=== PATIENT | female | born 1960 | race Caucasian/White ===

== ENCOUNTER 2017-08-13 22:56 | Inpatient (IN) | payer MEDICAID ==
[~2017-08-13] VITALS: Ht 170.2 cm; Wt 75.1 kg
--- NOTE | ~2017-08-13 | OP ---
PATIENT NAME: ANAHI PAREDES MEDICAL RECORD: [id number] :58 LOCATION:D.M2 D.2125 ADMISSION DATE:08/13/17 SURGEON: BALA MORRISSEY MD DATE OF OPERATION: 08/15/2017 PREOPERATIVE DIAGNOSES: 1. Need for IV access. 2. Qolfi-zr-xbzalma hypoxic and hypercapnic respiratory failure. 3. Chronic obstructive pulmonary disease. 4. Pneumonia. 5. Gastroesophageal reflux disease. 6. Bipolar disorder. 7. Seizure disorder. POSTOPERATIVE DIAGNOSES: 1. Need for IV access. 2. Eoqny-aj-jerwygt hypoxic and hypercapnic respiratory failure. 3. Chronic obstructive pulmonary disease. 4. Pneumonia. 5. Gastroesophageal reflux disease 6. Bipolar disorder. 7. Seizure disorder. PROCEDURE: Right subclavian vein triple-lumen central venous line placement. SURGEON: Blaa Morrissey MD REPORT OF PROCEDURE: The patient's right chest was prepped and draped in sterile fashion. A needle was used to cannulate the right subclavian vein and a guidewire was advanced with ease. Over this wire, a dilator was placed followed by the triple lumen catheter. The catheter aspirated nonpulsatile dark blood and flushed easily in all 3 ports. This was sutured into place with 3-0 silk ties and dressed appropriately. COMPLICATIONS: None. CONDITION: Stable. ANESTHESIA: General endotracheal. BLOOD LOSS: Minimal. Procedure was done in the ICU at the bedside. TRANSINT:[id number] Voice Confirmation ID: [id number] DOCUMENT ID: [id number] BALA MORRISSEY MD at 1031 CC: [id number] DICTATION DATE: 08/15/17 1355 CAMPUS AIDE: 08/15/17 2131 DIS IN 08/27/17 [id number] [place] [address]
[2017-08-14] VITALS (40 sets, daily range): BP systolic 83–150; BP diastolic 65–110; Ht 170.2 cm; Wt 75.1 kg
[2017-08-14 07:12] LABS: BASOPHILS 0.1 % (0-2); EOSINOPHILS 0 % (0-7); HEMATOCRIT 25.7 % (36.0-48.0); HEMOGLOBIN 8.2 g/dL (12-16); IMMATURE GRANULOCYTES 0.6 % (0-5); LYMPHOCYTES 13.8 % (15-50); MCH 29.8 pg (26.0-34.0); MCHC 31.9 g/dL (31.0-37.0); MCV 93.5 fL (80.0-100.0); MEAN PLATELET VOLUME 9.4 fL (7.4-10.4); MONOCYTES 2.9 % (2-11); NEUTROPHILS 82.6 % (40-80); PLATELET COUNT 159 10x3/uL (130-400); RBC 2.75 10x6/uL (4.00-5.40); RDW 14.1 % (11.5-14.5); WBC 8.9 10x3/uL (4.8-10.8)
[2017-08-14 07:28] LABS: CALC OSMOLALITY 278 mosm/kg (275-300); CALCIUM 8.3 mg/dL (8.5-10.1); CARBON DIOXIDE 26.7 mmol/L (21.0-32.0); CHLORIDE - SERUM 103 mmol/L (98-107); CREATININE - SERUM 0.7 mg/dL (0.6-1.3); GLUCOSE 210 mg/dL (74-106); POTASSIUM - SERUM 4.2 mmol/L (3.5-5.1); SODIUM 137 mmol/L (136-145); UREA NITROGEN 11 mg/dL (7-18); eGFR NON AFRICAN AMERICAN > 90 mL/min (90-120)
[2017-08-14 11:08] LABS: % SATURATION 8 % (15-55); IRON 22 ug/dl (35-150); TOTAL IRON BIND CAPACITY 274 ug/dl (260-445); UNSAT IRON BIND CAPACITY 252 ug/dl (150-375)
[2017-08-14 13:29] LABS: CKMB 3.7 U/L (0.0-3.6); CREATINE KINASE 46 UL (21-215)
[2017-08-14 13:32] LABS: TROPONIN-I 0.547 ng/mL (0.000-0.060)
[2017-08-14 17:28] LABS: CKMB 3.8 U/L (0.0-3.6); CREATINE KINASE 48 UL (21-215)
[2017-08-14 18:03] LABS: TROPONIN-I 1.036 ng/mL (0.000-0.060)
[2017-08-14 23:13] LABS: CKMB 3.5 U/L (0.0-3.6); CREATINE KINASE 50 UL (21-215)
[2017-08-14 23:15] LABS: TROPONIN-I 0.879 ng/mL (0.000-0.060)
[2017-08-15] VITALS (26 sets, daily range): BP systolic 112–164; BP diastolic 82–121
[2017-08-15 04:00] LABS: BASOPHILS 0.1 % (0-2); EOSINOPHILS 0 % (0-7); HEMATOCRIT 28.6 % (36.0-48.0); HEMOGLOBIN 9.1 g/dL (12-16); IMMATURE GRANULOCYTES 0.7 % (0-5); LYMPHOCYTES 18.3 % (15-50); MCH 29.8 pg (26.0-34.0); MCHC 31.8 g/dL (31.0-37.0); MCV 93.8 fL (80.0-100.0); MEAN PLATELET VOLUME 9.6 fL (7.4-10.4); MONOCYTES 9.2 % (2-11); NEUTROPHILS 71.7 % (40-80); RBC 3.05 10x6/uL (4.00-5.40)
[2017-08-15 04:05] LABS: PLATELET COUNT 233 10x3/uL (130-400); WBC 12.2 10x3/uL (4.8-10.8)
[2017-08-15 04:33] LABS: CALC OSMOLALITY 277 mosm/kg (275-300); CALCIUM 8.3 mg/dL (8.5-10.1); CHLORIDE - SERUM 102 mmol/L (98-107); CREATININE - SERUM 0.6 mg/dL (0.6-1.3); GLUCOSE 171 mg/dL (74-106); PHOSPHOROUS 2.8 mg/dL (2.5-4.9); POTASSIUM - SERUM 4.2 mmol/L (3.5-5.1); PRO BNP 10392 pg/mL (0-125); SODIUM 137 mmol/L (136-145); UREA NITROGEN 12 mg/dL (7-18); eGFR NON AFRICAN AMERICAN > 90 mL/min (90-120)
[2017-08-15 08:22] LABS: FOLATE (FOLIC ACID) - SERUM 15.8 ng/mL (>3.0)
[2017-08-16] VITALS (25 sets, daily range): BP systolic 82–169; BP diastolic 59–109
[2017-08-16 04:34] LABS: BASOPHILS 0.1 % (0-2); EOSINOPHILS 0 % (0-7); HEMATOCRIT 28.7 % (36.0-48.0); HEMOGLOBIN 9.1 g/dL (12-16); IMMATURE GRANULOCYTES 0.7 % (0-5); LYMPHOCYTES 20.6 % (15-50); MCH 29.7 pg (26.0-34.0); MCHC 31.7 g/dL (31.0-37.0); MCV 93.8 fL (80.0-100.0); MEAN PLATELET VOLUME 9.2 fL (7.4-10.4); MONOCYTES 12.5 % (2-11); NEUTROPHILS 66.1 % (40-80); PLATELET COUNT 229 10x3/uL (130-400); RBC 3.06 10x6/uL (4.00-5.40); RDW 14.4 % (11.5-14.5)
[2017-08-16 04:46] LABS: CALCIUM 8.6 mg/dL (8.5-10.1); CHLORIDE - SERUM 102 mmol/L (98-107); GLUCOSE 136 mg/dL (74-106); MAGNESIUM - SERUM 2.2 mg/dL (1.8-2.4); PHOSPHOROUS 3.2 mg/dL (2.5-4.9); POTASSIUM - SERUM 3.6 mmol/L (3.5-5.1); SODIUM 140 mmol/L (136-145)
[2017-08-16 04:57] LABS: CALC OSMOLALITY 282 mosm/kg (275-300); CARBON DIOXIDE 33.8 mmol/L (21.0-32.0); CREATININE - SERUM 0.8 mg/dL (0.6-1.3); UREA NITROGEN 17 mg/dL (7-18); eGFR NON AFRICAN AMERICAN 78 mL/min (90-120)
[2017-08-16 08:17] LABS: IMMUNOGLOBULIN A 143 mg/dL (87-352); IMMUNOGLOBULIN G 532 mg/dL (700-1600)
[2017-08-16 14:13] LABS: ACID FAST SMEAR Negative (()); AFB SPECIMEN PROCESSING Concentration (())
[2017-08-17] VITALS (27 sets, daily range): BP systolic 93–130; BP diastolic 51–89
[2017-08-17 04:57] LABS: BASOPHILS 0 % (0-2); EOSINOPHILS 0 % (0-7); HEMATOCRIT 26.6 % (36.0-48.0); HEMOGLOBIN 8.3 g/dL (12-16); IMMATURE GRANULOCYTES 0.4 % (0-5); LYMPHOCYTES 13.2 % (15-50); MCH 29.5 pg (26.0-34.0); MCHC 31.2 g/dL (31.0-37.0); MCV 94.7 fL (80.0-100.0); MEAN PLATELET VOLUME 9.3 fL (7.4-10.4); MONOCYTES 7.6 % (2-11); NEUTROPHILS 78.8 % (40-80); PLATELET COUNT 206 10x3/uL (130-400); RBC 2.81 10x6/uL (4.00-5.40); RDW 14.5 % (11.5-14.5); WBC 9.3 10x3/uL (4.8-10.8)
[2017-08-17 05:38] LABS: ANION GAP 9.3 mmol/L (8-16); CALCIUM 8.8 mg/dL (8.5-10.1); CREATININE - SERUM 0.9 mg/dL (0.6-1.3); MAGNESIUM - SERUM 2.5 mg/dL (1.8-2.4); PHOSPHOROUS 2.7 mg/dL (2.5-4.9); POTASSIUM - SERUM 3.3 mmol/L (3.5-5.1)
[2017-08-17 05:39] LABS: TROPONIN-I 0.201 ng/mL (0.000-0.060)
[2017-08-18] VITALS (33 sets, daily range): BP systolic 83–130; BP diastolic 51–78
[2017-08-18 05:15] LABS: BASOPHILS 0 % (0-2); EOSINOPHILS 0.1 % (0-7); HEMOGLOBIN 9.4 g/dL (12-16); IMMATURE GRANULOCYTES 0.5 % (0-5); LYMPHOCYTES 20.2 % (15-50); MCH 29.4 pg (26.0-34.0); MCHC 31.3 g/dL (31.0-37.0); MCV 93.8 fL (80.0-100.0); MEAN PLATELET VOLUME 9.6 fL (7.4-10.4); MONOCYTES 9.2 % (2-11); PLATELET COUNT 222 10x3/uL (130-400); RDW 14.9 % (11.5-14.5); WBC 9.3 10x3/uL (4.8-10.8)
[2017-08-18 05:27] LABS: CALCIUM 8.4 mg/dL (8.5-10.1); CARBON DIOXIDE 32.3 mmol/L (21.0-32.0); CHLORIDE - SERUM 101 mmol/L (98-107); POTASSIUM - SERUM 3.5 mmol/L (3.5-5.1); SODIUM 139 mmol/L (136-145); UREA NITROGEN 22 mg/dL (7-18)
[2017-08-18 05:30] LABS: CALC OSMOLALITY 282 mosm/kg (275-300); CREATININE - SERUM 0.6 mg/dL (0.6-1.3); GLUCOSE 135 mg/dL (74-106); eGFR NON AFRICAN AMERICAN > 90 mL/min (90-120)
[2017-08-18] MEDS ORDERED: TRILEPTAL300 MG PO (13:24)
[2017-08-18] MEDS ORDERED: TRILEPTAL600 MG PO (13:33)
[2017-08-18] MEDS ORDERED: PROZAC20 MG PO (13:34)
[2017-08-18] MEDS ORDERED: PROAIR HFA8.5 GM INH (13:34)
[2017-08-18] MEDS ORDERED: SEROQUEL400 MG PO (13:35)
[2017-08-18] MEDS ORDERED: XANAX0.25 MG PO (13:36)
[2017-08-18] MEDS ORDERED: ATROVENT 0.02%2.5 ML UPD (13:37)
[2017-08-18] MEDS ORDERED: SPORANOX100 MG PO (13:38)
[2017-08-18] MEDS ORDERED: METOPROLOL TART25 MG PO (13:38)
[2017-08-18] MEDS ORDERED: PREDNISONE20 MG PO (13:41)
[2017-08-18] MEDS ORDERED: HYDROCODONE-APA1 TAB PO (13:41)
[2017-08-19] VITALS (24 sets, daily range): BP systolic 86–113; BP diastolic 54–74
[2017-08-19 04:30] LABS: CALC OSMOLALITY 284 mosm/kg (275-300); CALCIUM 8.5 mg/dL (8.5-10.1); CARBON DIOXIDE 32.4 mmol/L (21.0-32.0); CHLORIDE - SERUM 100 mmol/L (98-107); CREATININE - SERUM 0.4 mg/dL (0.6-1.3); GLUCOSE 130 mg/dL (74-106); POTASSIUM - SERUM 3.6 mmol/L (3.5-5.1); SODIUM 140 mmol/L (136-145); UREA NITROGEN 24 mg/dL (7-18); eGFR NON AFRICAN AMERICAN > 90 mL/min (90-120)
[2017-08-19 04:31] LABS: BASOPHILS 0.1 % (0-2); EOSINOPHILS 0.1 % (0-7); HEMOGLOBIN 9.1 g/dL (12-16); IMMATURE GRANULOCYTES 0.5 % (0-5); LYMPHOCYTES 13.5 % (15-50); MCH 29.4 pg (26.0-34.0); MCHC 31.4 g/dL (31.0-37.0); MCV 93.5 fL (80.0-100.0); MEAN PLATELET VOLUME 10.1 fL (7.4-10.4); MONOCYTES 5.9 % (2-11); NEUTROPHILS 79.9 % (40-80); PLATELET COUNT 226 10x3/uL (130-400); RDW 14.5 % (11.5-14.5); WBC 9.3 10x3/uL (4.8-10.8)
[2017-08-19 18:10] LABS: FUNGAL - ASP FLAVUS Negative (Neg:<1:1); FUNGAL - ASP NIGER Negative (Neg:<1:1); FUNGAL - ASPER FUMIGATUS Negative (Neg:<1:1)
[2017-08-20] VITALS (24 sets, daily range): BP systolic 92–123; BP diastolic 50–90
[2017-08-20 05:37] LABS: BASOPHILS 0 % (0-2); EOSINOPHILS 0.3 % (0-7); HEMATOCRIT 25.4 % (36.0-48.0); HEMOGLOBIN 8.1 g/dL (12-16); IMMATURE GRANULOCYTES 0.4 % (0-5); LYMPHOCYTES 18.8 % (15-50); MCH 29.5 pg (26.0-34.0); MCHC 31.9 g/dL (31.0-37.0); MCV 92.4 fL (80.0-100.0); MEAN PLATELET VOLUME 9.8 fL (7.4-10.4); MONOCYTES 6.2 % (2-11); NEUTROPHILS 74.3 % (40-80); PLATELET COUNT 187 10x3/uL (130-400); RBC 2.75 10x6/uL (4.00-5.40); RDW 14.3 % (11.5-14.5); WBC 7.8 10x3/uL (4.8-10.8)
[2017-08-20 05:48] LABS: CALC OSMOLALITY 282 mosm/kg (275-300); CALCIUM 8.6 mg/dL (8.5-10.1); CARBON DIOXIDE 33.8 mmol/L (21.0-32.0); CHLORIDE - SERUM 101 mmol/L (98-107); CREATININE - SERUM 0.3 mg/dL (0.6-1.3); GLUCOSE 103 mg/dL (74-106); MAGNESIUM - SERUM 2.1 mg/dL (1.8-2.4); POTASSIUM - SERUM 3.3 mmol/L (3.5-5.1); SODIUM 140 mmol/L (136-145); UREA NITROGEN 24 mg/dL (7-18); eGFR NON AFRICAN AMERICAN > 90 mL/min (90-120)
[2017-08-20 11:20] LABS: FUNGUS STAIN Final report (())
[2017-08-21] VITALS (19 sets, daily range): BP systolic 88–128; BP diastolic 52–93
[2017-08-21 04:05] LABS: BASOPHILS 0.1 % (0-2); EOSINOPHILS 0.6 % (0-7); HEMATOCRIT 28.4 % (36.0-48.0); HEMOGLOBIN 8.9 g/dL (12-16); IMMATURE GRANULOCYTES 0.6 % (0-5); LYMPHOCYTES 20.5 % (15-50); MCH 29.1 pg (26.0-34.0); MCHC 31.3 g/dL (31.0-37.0); MCV 92.8 fL (80.0-100.0); MEAN PLATELET VOLUME 10.2 fL (7.4-10.4); NEUTROPHILS 69.2 % (40-80); RBC 3.06 10x6/uL (4.00-5.40); RDW 14.3 % (11.5-14.5)
[2017-08-21 04:10] LABS: PLATELET COUNT 227 10x3/uL (130-400)
[2017-08-21 04:25] LABS: CALC OSMOLALITY 283 mosm/kg (275-300); CARBON DIOXIDE 32.6 mmol/L (21.0-32.0); CHLORIDE - SERUM 101 mmol/L (98-107); GLUCOSE 118 mg/dL (74-106); SODIUM 141 mmol/L (136-145); UREA NITROGEN 18 mg/dL (7-18)
[2017-08-21 04:28] LABS: CREATININE - SERUM 0.4 mg/dL (0.6-1.3); POTASSIUM - SERUM 3.3 mmol/L (3.5-5.1); eGFR NON AFRICAN AMERICAN > 90 mL/min (90-120)
[2017-08-21 15:27] LABS: IMMUNOGLOBULIN E 4 IU/mL (0-100)
[2017-08-22] VITALS (15 sets, daily range): BP systolic 87–124; BP diastolic 59–103
[2017-08-22 05:04] LABS: BASOPHILS 0.1 % (0-2); EOSINOPHILS 0.5 % (0-7); HEMATOCRIT 29.9 % (36.0-48.0); HEMOGLOBIN 9.4 g/dL (12-16); IMMATURE GRANULOCYTES 0.5 % (0-5); LYMPHOCYTES 18.3 % (15-50); MCHC 31.4 g/dL (31.0-37.0); MCV 92.3 fL (80.0-100.0); MEAN PLATELET VOLUME 10.3 fL (7.4-10.4); MONOCYTES 11.2 % (2-11); NEUTROPHILS 69.4 % (40-80); RBC 3.24 10x6/uL (4.00-5.40); RDW 14.2 % (11.5-14.5); WBC 8.3 10x3/uL (4.8-10.8)
[2017-08-22 05:06] LABS: PLATELET COUNT 279 10x3/uL (130-400)
[2017-08-22 05:17] LABS: CALC OSMOLALITY 283 mosm/kg (275-300); CALCIUM 9.2 mg/dL (8.5-10.1); CARBON DIOXIDE 32.8 mmol/L (21.0-32.0); CHLORIDE - SERUM 101 mmol/L (98-107); CREATININE - SERUM 0.5 mg/dL (0.6-1.3); GLUCOSE 97 mg/dL (74-106); MAGNESIUM - SERUM 1.9 mg/dL (1.8-2.4); SODIUM 141 mmol/L (136-145); UREA NITROGEN 22 mg/dL (7-18); eGFR NON AFRICAN AMERICAN > 90 mL/min (90-120)
[2017-08-22 05:25] LABS: POTASSIUM - SERUM 3.1 mmol/L (3.5-5.1)
[2017-08-22 15:25] LABS: FUNGUS CULTURE RESULT 1 Candida tropicalis (())
[2017-08-23 00:41] VITALS: BP 120/74
[2017-08-23 05:33] LABS: BASOPHILS 0.1 % (0-2); EOSINOPHILS 0.3 % (0-7); HEMATOCRIT 30.8 % (36.0-48.0); HEMOGLOBIN 9.8 g/dL (12-16); IMMATURE GRANULOCYTES 0.6 % (0-5); LYMPHOCYTES 24.8 % (15-50); MCH 29.2 pg (26.0-34.0); MCHC 31.8 g/dL (31.0-37.0); MCV 91.7 fL (80.0-100.0); MONOCYTES 13.1 % (2-11); NEUTROPHILS 61.1 % (40-80); PLATELET COUNT 316 10x3/uL (130-400); RBC 3.36 10x6/uL (4.00-5.40); RDW 14.1 % (11.5-14.5)
[2017-08-23 05:57] VITALS: BP 115/74
[2017-08-23 06:11] LABS: CALC OSMOLALITY 285 mosm/kg (275-300); CALCIUM 9.6 mg/dL (8.5-10.1); CARBON DIOXIDE 31.1 mmol/L (21.0-32.0); CHLORIDE - SERUM 101 mmol/L (98-107); CREATININE - SERUM 0.5 mg/dL (0.6-1.3); GLUCOSE 102 mg/dL (74-106); POTASSIUM - SERUM 3.3 mmol/L (3.5-5.1); SODIUM 141 mmol/L (136-145); UREA NITROGEN 26 mg/dL (7-18); eGFR NON AFRICAN AMERICAN > 90 mL/min (90-120)
[2017-08-23 08:11] VITALS: BP 107/73
[2017-08-23 11:22] VITALS: BP 128/82
[2017-08-23 15:29] VITALS: BP 108/69
[2017-08-23 21:35] VITALS: BP 139/79
[2017-08-24 00:46] VITALS: BP 111/72
[2017-08-24 05:39] VITALS: BP 106/68
[2017-08-24 06:15] LABS: BASOPHILS 0.1 % (0-2); EOSINOPHILS 0.7 % (0-7); HEMATOCRIT 29.5 % (36.0-48.0); HEMOGLOBIN 9.2 g/dL (12-16); IMMATURE GRANULOCYTES 0.6 % (0-5); LYMPHOCYTES 28.5 % (15-50); MCH 28.9 pg (26.0-34.0); MCHC 31.2 g/dL (31.0-37.0); MCV 92.8 fL (80.0-100.0); MEAN PLATELET VOLUME 10.3 fL (7.4-10.4); MONOCYTES 14.3 % (2-11); NEUTROPHILS 55.8 % (40-80); PLATELET COUNT 296 10x3/uL (130-400); RBC 3.18 10x6/uL (4.00-5.40); RDW 14.4 % (11.5-14.5)
[2017-08-24 06:42] LABS: CALC OSMOLALITY 290 mosm/kg (275-300); CALCIUM 9.6 mg/dL (8.5-10.1); CARBON DIOXIDE 31.7 mmol/L (21.0-32.0); CHLORIDE - SERUM 103 mmol/L (98-107); CREATININE - SERUM 0.5 mg/dL (0.6-1.3); GLUCOSE 97 mg/dL (74-106); MAGNESIUM - SERUM 2.1 mg/dL (1.8-2.4); SODIUM 143 mmol/L (136-145); UREA NITROGEN 29 mg/dL (7-18); eGFR NON AFRICAN AMERICAN > 90 mL/min (90-120)
[2017-08-24 06:44] LABS: POTASSIUM - SERUM 3.2 mmol/L (3.5-5.1)
[2017-08-24 08:51] VITALS: BP 116/77
[2017-08-24 12:13] VITALS: BP 129/80
[2017-08-24 16:32] VITALS: BP 127/75
[2017-08-24 18:06] LABS: AEROBE ID Final report (())
[2017-08-24 20:00] VITALS: BP 122/68
[2017-08-25 04:00] VITALS: BP 113/70
[2017-08-25 05:48] LABS: BASOPHILS 0 % (0-2); EOSINOPHILS 0.6 % (0-7); HEMATOCRIT 28.5 % (36.0-48.0); HEMOGLOBIN 8.9 g/dL (12-16); IMMATURE GRANULOCYTES 0.5 % (0-5); LYMPHOCYTES 29.6 % (15-50); MCH 28.9 pg (26.0-34.0); MCHC 31.2 g/dL (31.0-37.0); MCV 92.5 fL (80.0-100.0); NEUTROPHILS 54.3 % (40-80); PLATELET COUNT 278 10x3/uL (130-400); RBC 3.08 10x6/uL (4.00-5.40); RDW 14.5 % (11.5-14.5); WBC 6.4 10x3/uL (4.8-10.8)
[2017-08-25 06:14] LABS: ALKALINE PHOSPHATASE 54 U/L (46-116); ALT (SGPT) 36 U/L (10-68); BILIRUBIN - TOTAL 0.26 mg/dL (0.2-1.3); CALC OSMOLALITY 284 mosm/kg (275-300); CALCIUM 9.5 mg/dL (8.5-10.1); CHLORIDE - SERUM 103 mmol/L (98-107); CREATININE - SERUM 0.5 mg/dL (0.6-1.3); GLUCOSE 89 mg/dL (74-106); POTASSIUM - SERUM 3.3 mmol/L (3.5-5.1); PROTEIN - SERUM 6.2 g/dL (6.4-8.2); SODIUM 142 mmol/L (136-145); UREA NITROGEN 22 mg/dL (7-18); eGFR NON AFRICAN AMERICAN > 90 mL/min (90-120)
[2017-08-25 07:57] VITALS: BP 188/149
[2017-08-25 09:32] VITALS: BP 160/82
[2017-08-25 11:16] VITALS: BP 130/91
[2017-08-25 15:16] VITALS: BP 104/71
[2017-08-25 16:13] LABS: SPE - ALBUMIN 2.8 g/dL (2.9-4.4); SPE - ALPHA-1 GLOBULIN 0.3 g/dL (0.0-0.4); SPE - GAMMA GLOBULIN 0.5 g/dL (0.4-1.8); SPE - M-SPIKE Not Observed g/dL (Not Observed); SPE - TOTAL PROTEIN 5.5 g/dL (6.0-8.5)
[2017-08-25 20:18] VITALS: BP 107/42
[2017-08-26 00:39] VITALS: BP 119/73
[2017-08-26 05:34] LABS: BASOPHILS 0.1 % (0-2); EOSINOPHILS 0.8 % (0-7); HEMATOCRIT 31.2 % (36.0-48.0); IMMATURE GRANULOCYTES 0.6 % (0-5); LYMPHOCYTES 32.8 % (15-50); MCH 29.6 pg (26.0-34.0); MCHC 32.1 g/dL (31.0-37.0); MCV 92.3 fL (80.0-100.0); MEAN PLATELET VOLUME 9.9 fL (7.4-10.4); MONOCYTES 13.7 % (2-11); PLATELET COUNT 295 10x3/uL (130-400); RBC 3.38 10x6/uL (4.00-5.40); RDW 14.5 % (11.5-14.5); WBC 7.1 10x3/uL (4.8-10.8)
[2017-08-26 05:57] LABS: ALBUMIN 3.4 g/dL (3.4-5.0); ALKALINE PHOSPHATASE 71 U/L (46-116); ALT (SGPT) 36 U/L (10-68); CALC OSMOLALITY 287 mosm/kg (275-300); CALCIUM 9.5 mg/dL (8.5-10.1); CHLORIDE - SERUM 103 mmol/L (98-107); GLUCOSE 91 mg/dL (74-106); POTASSIUM - SERUM 3.2 mmol/L (3.5-5.1); PROTEIN - SERUM 6.8 g/dL (6.4-8.2); SODIUM 143 mmol/L (136-145); UREA NITROGEN 22 mg/dL (7-18); eGFR NON AFRICAN AMERICAN 78 mL/min (90-120)
[2017-08-26 06:00] LABS: CREATININE - SERUM 0.8 mg/dL (0.6-1.3)
[2017-08-26 06:11] VITALS: BP 118/76
[2017-08-26 08:17] VITALS: BP 94/56
[2017-08-26 11:43] VITALS: BP 120/67
[2017-08-26 15:36] VITALS: BP 110/60
[2017-08-26 20:47] VITALS: BP 119/69
[2017-08-27 05:08] VITALS: BP 102/56
[2017-08-27 05:44] LABS: BASOPHILS 0.3 % (0-2); EOSINOPHILS 0.8 % (0-7); HEMATOCRIT 31.2 % (36.0-48.0); HEMOGLOBIN 9.9 g/dL (12-16); IMMATURE GRANULOCYTES 0.9 % (0-5); LYMPHOCYTES 36.9 % (15-50); MCH 29.2 pg (26.0-34.0); MCHC 31.7 g/dL (31.0-37.0); MEAN PLATELET VOLUME 9.8 fL (7.4-10.4); MONOCYTES 12.6 % (2-11); NEUTROPHILS 48.5 % (40-80); PLATELET COUNT 293 10x3/uL (130-400); RBC 3.39 10x6/uL (4.00-5.40); RDW 14.5 % (11.5-14.5); WBC 7.5 10x3/uL (4.8-10.8)
[2017-08-27 06:08] LABS: ALBUMIN 3.2 g/dL (3.4-5.0); ALKALINE PHOSPHATASE 64 U/L (46-116); ALT (SGPT) 36 U/L (10-68); CALC OSMOLALITY 284 mosm/kg (275-300); CALCIUM 9.7 mg/dL (8.5-10.1); CARBON DIOXIDE 32.4 mmol/L (21.0-32.0); CHLORIDE - SERUM 103 mmol/L (98-107); CREATININE - SERUM 0.6 mg/dL (0.6-1.3); GLUCOSE 90 mg/dL (74-106); POTASSIUM - SERUM 3.4 mmol/L (3.5-5.1); PROTEIN - SERUM 6.5 g/dL (6.4-8.2); SODIUM 141 mmol/L (136-145); UREA NITROGEN 25 mg/dL (7-18); eGFR NON AFRICAN AMERICAN > 90 mL/min (90-120)
[2017-08-27 08:21] VITALS: BP 109/68
[2017-08-27] MEDS ORDERED: FLAGYL500 MG PO (10:40)
[2017-08-27] MEDS ORDERED: BETAPACE 80 MG80 MG PO (10:41)
[2017-08-27] MEDS ORDERED: CAPOTEN12.5 MG NG (10:41)
[2017-08-27] MEDS ORDERED: SINGULAIR10 MG PO (10:42)
[2017-08-27] MEDS ORDERED: PROTONIX I40 MG/VIAL IV (10:43)
[2017-08-27] MEDS ORDERED: FLORAJEN3 CAPS460 MG PO (10:43)
[2017-08-27] MEDS ORDERED: PULMICORT0.5 MG/21 UPD (10:43)
[2017-08-27 11:37] VITALS: BP 110/60
[2017-08-27] MEDS ORDERED: PROTONIX40 MG PO (14:19)
[2017-08-27] MEDS ORDERED: CAPOTEN12.5 MG PO (14:19)
[2017-09-12 14:23] LABS: FUNGUS MYCOLOGY CULTURE Final report (())
== END 2017-08-27 15:24 | disposition home health service (06) | DRG 207 ==
LOC: D.ICU 22:56 → D.M2 23:50 → D.SDCHOLD 08-26 07:25 → D.M2 08-27 15:24
PROVIDERS: Emergency Medicine; Internal Medicine Hematology & Oncology; Internal Medicine Nephrology; Internal Medicine Pulmonary Disease
PROC: 5A1955Z Respiratory Ventilation, Greater than 96 Consecutive Hours (ICD-10-PCS; principal; 2017-08-13)
PROC: 0BH17EZ Insertion of Endotracheal Airway into Trachea, Via Natural or Artificial Opening (ICD-10-PCS; 2017-08-13)
PROC: 05H533Z Insertion of Infusion Device into Right Subclavian Vein, Percutaneous Approach (ICD-10-PCS; 2017-08-15)
PROC: 0BC98ZZ Extirpation of Matter from Lingula Bronchus, Via Natural or Artificial Opening Endoscopic (ICD-10-PCS; 2017-08-15)
PROC: 0BC48ZZ Extirpation of Matter from Right Upper Lobe Bronchus, Via Natural or Artificial Opening Endoscopic (ICD-10-PCS; 2017-08-15)
PROC: 0BC88ZZ Extirpation of Matter from Left Upper Lobe Bronchus, Via Natural or Artificial Opening Endoscopic (ICD-10-PCS; 2017-08-15)
PROC: 0BC58ZZ Extirpation of Matter from Right Middle Lobe Bronchus, Via Natural or Artificial Opening Endoscopic (ICD-10-PCS; 2017-08-15)
PROC: 0BC68ZZ Extirpation of Matter from Right Lower Lobe Bronchus, Via Natural or Artificial Opening Endoscopic (ICD-10-PCS; 2017-08-15)
PROC: 0BCB8ZZ Extirpation of Matter from Left Lower Lobe Bronchus, Via Natural or Artificial Opening Endoscopic (ICD-10-PCS; 2017-08-15)
DX: J96.21 Acute and chronic respiratory failure with hypoxia (principal); J18.9 Pneumonia, unspecified organism; I50.23 Acute on chronic systolic (congestive) heart failure; J44.1 Chronic obstructive pulmonary disease with (acute) exacerbation; K92.2 Gastrointestinal hemorrhage, unspecified; I42.9 Cardiomyopathy, unspecified; E87.3 Alkalosis; A04.72 Enterocolitis due to Clostridium difficile, not specified as recurrent; J96.22 Acute and chronic respiratory failure with hypercapnia; Y95 Nosocomial condition; I10 Essential (primary) hypertension; D50.9 Iron deficiency anemia, unspecified; F31.9 Bipolar disorder, unspecified; G40.909 Epilepsy, unspecified, not intractable, without status epilepticus; B18.2 Chronic viral hepatitis C; Z99.81 Dependence on supplemental oxygen; D72.829 Elevated white blood cell count, unspecified; I11.0 Hypertensive heart disease with heart failure; K21.9 Gastro-esophageal reflux disease without esophagitis; I08.1 Rheumatic disorders of both mitral and tricuspid valves; Z87.891 Personal history of nicotine dependence

== ENCOUNTER 2017-09-01 22:48 | Observation (INO) | payer MEDICAID ==
[~2017-09-01] VITALS: Ht 170.2 cm; Wt 82.2 kg
[~2017-09-01 22:48] MED LIST: ATROVENT 0.02%2.5 ML UPD; BETAPACE 80 MG80 MG PO; CAPOTEN12.5 MG NG; CAPOTEN12.5 MG PO; FLAGYL500 MG PO; FLORAJEN3 CAPS460 MG PO; HYDROCODONE-APA1 TAB PO; METOPROLOL TART25 MG PO; PREDNISONE20 MG PO; PROAIR HFA8.5 GM INH; PROTONIX I40 MG/VIAL IV; PROTONIX40 MG PO; PROZAC20 MG PO; PULMICORT0.5 MG/21 UPD; SEROQUEL400 MG PO; SINGULAIR10 MG PO; SPORANOX100 MG PO; TRILEPTAL300 MG PO; TRILEPTAL600 MG PO; XANAX0.25 MG PO
[2017-09-02 02:38] VITALS: Ht 170.2 cm; Wt 82.2 kg
[2017-09-02 06:20] VITALS: BP 144/76
[2017-09-02 06:54] LABS: MAGNESIUM - SERUM 2.2 mg/dL (1.8-2.4); PHOSPHOROUS 2.7 mg/dL (2.5-4.9)
[2017-09-02 07:51] VITALS: BP 142/78
[2017-09-02 10:25] VITALS: BP 132/71
[2017-09-02 15:31] VITALS: BP 140/77
[2017-09-02 20:31] VITALS: BP 119/79
[2017-09-03 04:00] VITALS: BP 97/65
[2017-09-03 05:38] LABS: BASOPHILS 0 % (0-2); EOSINOPHILS 0.3 % (0-7); HEMATOCRIT 29.3 % (36.0-48.0); HEMOGLOBIN 9.2 g/dL (12-16); IMMATURE GRANULOCYTES 0.3 % (0-5); LYMPHOCYTES 30.9 % (15-50); MCH 29.8 pg (26.0-34.0); MCHC 31.4 g/dL (31.0-37.0); MCV 94.8 fL (80.0-100.0); MEAN PLATELET VOLUME 11.1 fL (7.4-10.4); NEUTROPHILS 58.5 % (40-80); RBC 3.09 10x6/uL (4.00-5.40); RDW 15.7 % (11.5-14.5); WBC 7.5 10x3/uL (4.8-10.8)
[2017-09-03 05:55] LABS: PLATELET COUNT 192 10x3/uL (130-400)
[2017-09-03 05:58] LABS: ALBUMIN 2.9 g/dL (3.4-5.0); ALKALINE PHOSPHATASE 50 U/L (46-116); ALT (SGPT) 38 U/L (10-68); CALC OSMOLALITY 285 mosm/kg (275-300); CALCIUM 9.2 mg/dL (8.5-10.1); CARBON DIOXIDE 31.1 mmol/L (21.0-32.0); CHLORIDE - SERUM 105 mmol/L (98-107); CREATININE - SERUM 0.8 mg/dL (0.6-1.3); GLUCOSE 102 mg/dL (74-106); POTASSIUM - SERUM 3.3 mmol/L (3.5-5.1); PROTEIN - SERUM 5.7 g/dL (6.4-8.2); SODIUM 142 mmol/L (136-145); UREA NITROGEN 20 mg/dL (7-18); eGFR NON AFRICAN AMERICAN 78 mL/min (90-120)
[2017-09-03 07:44] VITALS: BP 131/68
[2017-09-03 11:23] VITALS: BP 138/71
== END 2017-09-03 13:28 | disposition home or self-care (01) ==
LOC: D.ER 22:48 → D.EDHOLD 09-02 00:26 → D.M2 09-02 00:26 → OBSVTIME 09-02 00:26 → D.M2 09-02 00:31
PROVIDERS: Family Medicine
DX: R00.0 Tachycardia, unspecified (principal); F41.9 Anxiety disorder, unspecified; J44.9 Chronic obstructive pulmonary disease, unspecified; I10 Essential (primary) hypertension; K75.9 Inflammatory liver disease, unspecified; K21.9 Gastro-esophageal reflux disease without esophagitis

== ENCOUNTER → 2018-07-10 09:22 | Outpatient (CLI) | payer MEDICAID ==
[2017-09-02 02:38] VITALS: BMI 24.3
== END | disposition home or self-care (01) ==
LOC: D.RT 09:22
PROVIDERS: ATTEND Internal Medicine Pulmonary Disease
DX: J44.9 Chronic obstructive pulmonary disease, unspecified (principal)

== ENCOUNTER 2018-08-23 21:09 | Inpatient (IN) | payer MEDICAID ==
[~2018-08-23] VITALS: Ht 170.2 cm; Wt 140.9 kg
[2018-08-23 21:32] VITALS: BP 139/96
[2018-08-23 22:08] LABS: BASOPHILS 0 % (0-2); EOSINOPHILS 0.6 % (0-7); HEMOGLOBIN 10.9 g/dL (12-16); IMMATURE GRANULOCYTES 0.2 % (0-5); LYMPHOCYTES 26.2 % (15-50); MCH 29.5 pg (26.0-34.0); MCHC 31.1 g/dL (31.0-37.0); MCV 94.6 fL (80.0-100.0); MEAN PLATELET VOLUME 10.7 fL (7.4-10.4); MONOCYTES 9.8 % (2-11); NEUTROPHILS 63.2 % (40-80); PLATELET COUNT 203 10x3/uL (130-400); RDW 13.7 % (11.5-14.5); WBC 8.3 10x3/uL (4.8-10.8)
[2018-08-23 22:19] LABS: ALBUMIN 3.4 g/dL (3.4-5.0); ALKALINE PHOSPHATASE 62 U/L (46-116); ALT (SGPT) 50 U/L (10-68); BILIRUBIN - TOTAL 0.23 mg/dL (0.2-1.3); CALC OSMOLALITY 281 mosm/kg (275-300); CALCIUM 8.9 mg/dL (8.5-10.1); CARBON DIOXIDE 38.8 mmol/L (21.0-32.0); CHLORIDE - SERUM 101 mmol/L (98-107); CREATININE - SERUM 0.8 mg/dL (0.6-1.3); GLUCOSE 100 mg/dL (74-106); POTASSIUM - SERUM 3.6 mmol/L (3.5-5.1); PROTEIN - SERUM 6.8 g/dL (6.4-8.2); SODIUM 141 mmol/L (136-145); UREA NITROGEN 15 mg/dL (7-18); eGFR NON AFRICAN AMERICAN 78 mL/min (90-120)
[2018-08-23 22:26] LABS: LIPASE 292 U/L (73-393); MAGNESIUM - SERUM 2.2 mg/dL (1.8-2.4); PRO BNP 39 pg/mL (0-125)
[2018-08-23 22:27] LABS: TROPONIN-I < 0.017 ng/mL (0.000-0.060)
[2018-08-23 22:45] VITALS: BP 129/76
--- NOTE | 2018-08-23 23:47 | NUR ---
PT ARRIVED TO FLOOR VIA STRECHER. PT ALERT AND ORIENTED X4. PT AT BEDSIDE. PT ON 2L NC. PT HAS CPAP FROM HOME AT BEDSIDE. PT DENIES ANY PAIN OR NEEDS AT THIS TIME. BED LOW CALL LIGHT WITHIN REACH. WILL CONTINUE TO MONITOR.
[2018-08-24] VITALS (8 sets, daily range): BP systolic 107–146; BP diastolic 61–98; BMI 33.3; BMI 33.2
--- NOTE | 2018-08-24 00:45 | NUR ---
CLINICAL RESEARCH ANALYST ASSESSMENT COMPLETED. PT STATES HAS CP 8/10 WITH COUGH AND DEEP BREATHING. IV TO L HAND WITH IVAB INFUSING. O2 2LNC. LUNGS DIMINISHED IN BASES BILAT. BRUISES NOTED TO BILAT ARMS. SPOUSE AT BEDSIDE. SR UP X1, CALL LIGHT WITHIN REACH.
--- NOTE | 2018-08-24 01:59 | NUR ---
PT RESTING IN BED WITH CPAP ON. RR EVEN AND UNLABORED. AT BEDSIDE. BED LOW CALL LIGHT WITHIN REACH. WILL CONTINUE TO MONITOR.
--- NOTE | 2018-08-24 08:30 | NUR ---
RECIEVED REPORT, PATIENT IS ALERT AND AWAKE AND REPORTS BURNING PAIN IN HER LUNGS. ADMINISTER PAIN MEDICATION ORDERED. IV IN LEFT HAND IS FLUSHING WELL. PATIENT DENIES ANY FURTHER NEEDS AT THIS TIME EXCEPT THAT HER MEDICATIONS BE STARTED UP AGAIN. MEDICATIONS ARE ON THE MEDICATION RECONSILIATION LIST.
[2018-08-24] MEDS ORDERED: ZITHROMAX250 MG PO (12:53)
[2018-08-24] MEDS ORDERED: HYDROCODON-ACE1 EAC7 PO (12:58)
[2018-08-24] MEDS ORDERED: CARAFATE1 G PO (13:00)
[2018-08-24] MEDS ORDERED: ALDACTONE50 MG PO (13:04)
[2018-08-24] MEDS ORDERED: FUROSEMIDE20 MG PO (13:05)
[2018-08-24] MEDS ORDERED: KLONOPIN0.5 MG PO (13:06)
[2018-08-24] MEDS ORDERED: PREDNISONE20 MG PO (13:08)
[2018-08-24] MEDS ORDERED: BRETHINE2.5 MG PO (13:09)
[2018-08-24] MEDS ORDERED: OMEPRAZOLE20 M1 PO (13:11)
[2018-08-24] MEDS ORDERED: K-TAB10 MEQ PO (13:13)
[2018-08-24] MEDS ORDERED: DALIRESP500 MCG PO (13:15)
[2018-08-24] MEDS ORDERED: ALBUTEROL SULF8.5 GM INH (13:17)
[2018-08-24] MEDS ORDERED: ASPIRIN81 MG PO (13:18)
[2018-08-24 14:48] LABS: CKMB 0.4 U/L (0.0-3.6); CREATINE KINASE 18 UL (21-215); TROPONIN-I < 0.017 ng/mL (0.000-0.060)
[2018-08-24 14:56] LABS: % SATURATION 8 % (15-55); IRON 30 ug/dl (35-150); TOTAL IRON BIND CAPACITY 350 ug/dl (260-445); UNSAT IRON BIND CAPACITY 320 ug/dl (150-375)
--- NOTE | 2018-08-24 16:39 | NUR ---
I have reviewed this patient and I concur with the Shift Assessment completed by the Licensed Practical Nurse today this shift.
--- NOTE | 2018-08-24 19:00 | NUR ---
PATIENT LAYING IN BED. PATIENT HAS NO COMPLAINTS AT THIS TIME. NO DISTRESS NOTED.
[2018-08-24 19:51] LABS: CREATINE KINASE 15 UL (21-215)
[2018-08-24 20:02] LABS: TROPONIN-I < 0.017 ng/mL (0.000-0.060)
[2018-08-25] VITALS: BP 141/89
[2018-08-25 01:03] LABS: CKMB 0.5 U/L (0.0-3.6); CREATINE KINASE 24 UL (21-215)
[2018-08-25 01:05] LABS: TROPONIN-I < 0.017 ng/mL (0.000-0.060)
--- NOTE | 2018-08-25 01:30 | NUR ---
PATIENT LAYING IN BED. EYES CLOSED, CHEST RISING AND FALLING. NO DISTRESS NOTED.
[2018-08-25 04:00] VITALS: BP 141/53
--- NOTE | 2018-08-25 04:44 | NUR ---
NOTIFIED FROM RT THAT PATIENT HAS CRITICAL LAB OF PO2 AT 165.2. RT SAYS SHE TURNED DOWN O2 AND THAT SHOULD FIXED THE ISSUE. WILL CONTINUE TO MONITOR.
--- NOTE | 2018-08-25 05:24 | NUR ---
I have reviewed this patient and I concur with the Shift Assessment completed by the Licensed Practical Nurse today this shift.
[2018-08-25 05:49] LABS: BASOPHILS 0 % (0-2); EOSINOPHILS 0 % (0-7); HEMOGLOBIN 9.5 g/dL (12-16); IMMATURE GRANULOCYTES 0.4 % (0-5); LYMPHOCYTES 15.2 % (15-50); MCH 29.1 pg (26.0-34.0); MCHC 31.7 g/dL (31.0-37.0); MONOCYTES 2.6 % (2-11); NEUTROPHILS 81.8 % (40-80); PLATELET COUNT 174 10x3/uL (130-400); RBC 3.26 10x6/uL (4.00-5.40); RDW 13.7 % (11.5-14.5)
[2018-08-25 05:57] LABS: WBC 5.7 10x3/uL (4.8-10.8)
[2018-08-25 06:19] LABS: ALKALINE PHOSPHATASE 50 U/L (46-116); ALT (SGPT) 38 U/L (10-68); BILIRUBIN - TOTAL 0.18 mg/dL (0.2-1.3); CALCIUM 8.9 mg/dL (8.5-10.1); CARBON DIOXIDE 32.4 mmol/L (21.0-32.0); CHLORIDE - SERUM 101 mmol/L (98-107); CREATININE - SERUM 0.8 mg/dL (0.6-1.3); MAGNESIUM - SERUM 2.2 mg/dL (1.8-2.4); PROTEIN - SERUM 6.1 g/dL (6.4-8.2); SODIUM 138 mmol/L (136-145); eGFR NON AFRICAN AMERICAN 78 mL/min (90-120)
[2018-08-25 06:22] LABS: CALC OSMOLALITY 286 mosm/kg (275-300); GLUCOSE 238 mg/dL (74-106); POTASSIUM - SERUM 4.3 mmol/L (3.5-5.1); UREA NITROGEN 21 mg/dL (7-18)
--- NOTE | 2018-08-25 06:22 | NUR ---
PATIENT TOOK MEDICATIONS WITH NO DIFFICULTIES. NO COMPLAINTS AT THIS TIME. NO DISTRESS NOTED.
[2018-08-25 08:01] VITALS: BP 126/80
[2018-08-25 10:14] LABS: FOLATE (FOLIC ACID) - SERUM 14.7 ng/mL (>3.0)
[2018-08-25 16:08] VITALS: BP 124/79
[2018-08-25 20:00] VITALS: BP 132/84
--- NOTE | 2018-08-25 20:00 | NUR ---
PT C/O CHEST PAIN 15MG IV KETOROLAC GIVEN AT THIS TIME. WILL CPOC.
--- NOTE | 2018-08-25 20:10 | NUR ---
RECIEVED REPORT. ROUNDS COMPLETED VSS, AAOX3, CPAP ON 30%, O2 NC 2L. PIV ON RIGHT WRIST PATENT. FERELECIT INFUSING. ASSIST PT UP TO BEDSIDE COMODE. PT VOICED THANKS. PT DENIES ANY FURTHER NEEDS AT THIS TIME. WILL CPOC. CL IN REACH.
[2018-08-26 00:09] VITALS: BP 96/64
[2018-08-26 04:00] VITALS: BP 94/59
[2018-08-26 06:05] LABS: BASOPHILS 0 % (0-2); EOSINOPHILS 0 % (0-7); HEMATOCRIT 30.9 % (36.0-48.0); HEMOGLOBIN 9.5 g/dL (12-16); IMMATURE GRANULOCYTES 0.2 % (0-5); LYMPHOCYTES 12.7 % (15-50); MCH 28.6 pg (26.0-34.0); MCHC 30.7 g/dL (31.0-37.0); MCV 93.1 fL (80.0-100.0); MONOCYTES 8.1 % (2-11); PLATELET COUNT 184 10x3/uL (130-400); RBC 3.32 10x6/uL (4.00-5.40); WBC 6.5 10x3/uL (4.8-10.8)
[2018-08-26 06:36] LABS: ALBUMIN 2.9 g/dL (3.4-5.0); ALKALINE PHOSPHATASE 47 U/L (46-116); ALT (SGPT) 36 U/L (10-68); CALC OSMOLALITY 288 mosm/kg (275-300); CALCIUM 9.3 mg/dL (8.5-10.1); CARBON DIOXIDE 33.8 mmol/L (21.0-32.0); CHLORIDE - SERUM 102 mmol/L (98-107); CREATININE - SERUM 0.7 mg/dL (0.6-1.3); GLUCOSE 186 mg/dL (74-106); MAGNESIUM - SERUM 2.3 mg/dL (1.8-2.4); POTASSIUM - SERUM 4.4 mmol/L (3.5-5.1); SODIUM 139 mmol/L (136-145); UREA NITROGEN 29 mg/dL (7-18); eGFR NON AFRICAN AMERICAN > 90 mL/min (90-120)
--- NOTE | 2018-08-26 07:32 | NUR ---
RESUMING PT CARE, PT IS LAYING IN BED WITH EYES CLOSED, RESPIRATIONS EVEN AND UNLABORED. CALL LIGHT IN REACH, WILL CONTINUE TO MONITOR AND FOLLOW PLAN OF CARE.
[2018-08-26 08:48] VITALS: BP 101/58
--- NOTE | 2018-08-26 09:26 | NUR ---
IV IN RIGHT WRIST INFILTRATED, REMOVED CATHETER. WILL TRY TO RESTART ANOTHER IV. CALL LIGHT IN REACH, WILL CONTINUE TO MONITOR.
[2018-08-26 11:59] VITALS: BP 112/65
--- NOTE | 2018-08-26 12:34 | NUR ---
I have reviewed this patient and I concur with the Shift Assessment completed by the Licensed Practical Nurse today this shift.
--- NOTE | 2018-08-26 12:48 | MORECARE ---
CASE MANAGEMENT DISCHARGE SUMMARY PATIENT: ANAHI PAREDES UNIT: [id number] ADM DATE: 08/24/18 AGE: 58 : 58 SEX: F ROOM/BED: D.2107 AUTHOR: ANTHONY MERCADO PHYSICIAN: REFERRING PHYSICIAN: LAWSON STONE MD DATE OF SERVICE: 08/26/18 Discharge Plan Patient Name: ANAHI PAREDES [facility] [facility] 1960 Planned Disposition: Home with Home Health Anticipated Discharge Date: 08/26/18 Discharge Date: Expected LOS: 2 Initial Reviewer: [email or web address] Initial Review Date: 08/26/2018 Generated: 08/26/18 1:48 pm Coverage Notice Reviewer: [id number] - Rl Siddiqi Notice Issued Date-Time: 08/26/2018 11:30 Notice Type: Patient Choice Letter Notice Delivered To: Patient Relationship to Patient: Carton Forming Machine Operator Name: Delivery Method: HAND - Hand Delivered Janina Days: Prior Verbal Notification: Recipient Understood Notice: Yes Recipient Signature: Yes Med Rec Note Co-signed by Attending: Coverage Notice Comment: -[facility], [facility] MEDICAL SUPPLY OR ANY MEDICAL SUPPLY FOR TRILOGY MACHINE Patient Name: ANAHI PAREDES Page [phone] at 1248 All edits/amendments must be made on the electronic document DICTATION DATE: 08/26/18 1247 BOOKING POLICE OFFICER: WAYNE 08/26/18 1247 RPT#: [id number] DC DATE: STATUS: ADM IN [place] [address] [place] [address] END OF REPORT
--- NOTE | 2018-08-26 12:57 | MORECARE ---
CASE MANAGEMENT DISCHARGE SUMMARY PATIENT: ANAHI PAREDES UNIT: [id number] ADM DATE: 08/24/18 AGE: 58 : 58 SEX: F ROOM/BED: D.2108 AUTHOR: ROGELIO,DOC PHYSICIAN: REFERRING PHYSICIAN: LAWSON STONE MD DATE OF SERVICE: 08/26/18 Discharge Plan Patient Name: ANAHI PAREDES Facility: [facility]:[place] : 1960 Planned Disposition: Home with Home Health Anticipated Discharge Date: 08/26/18 Discharge Date: Expected LOS: 2 Initial Reviewer: [email or web address] Initial Review Date: 08/26/2018 Generated: 08/26/18 1:57 pm DCPIA - Discharge Planning Initial Assessment Updated by [email or web address]: Rl Siddiqi on 08/26/18 12:50 pm * Is the patient Alert and Oriented? Yes * How many steps to enter\exit or inside your home? NONE * PCP DR. BRIAN DODD, [facility] IN [place] * Pharmacy [facility] IN [place] * Preadmission Environment Home with Family * ADLs Partial Dependent * Partial ADLs (Assistance needed) Bathing Medication Management * Equipment Bedside Commode CPAP Grab Bars Oxygen Walker Wheelchair * Other Equipment HOME AND PORTABLE OXYGEN - [facility] MEDICAL, PREFERRED PROVIDER * List name and contact numbers for known caregivers / representatives who currently or will assist patient after discharge: EVERETT PAREDES, SPOUSE, * Verbal permission to speak to the caregivers and representatives has been obtained from the patient. N/A * Community resources currently utilized Home Health * Please name any agencies selected above. [facility], [facility] - [facility]SING [facility]YSICAL THERAPY * Additional services required to return to the preadmission environment? No * Can the patient safely return to the preadmission environment? Yes * Has this patient been hospitalized within the prior 30 days at any hospital? Yes External Providers External Provider: [facility] Next Contact Date: 08/26/2018 Service Request Date: Service Type: Resolution: Reviewer: Comments: Coverage Notice Reviewer: [email or web address] - Rl Siddiqi Notice Issued Date-Time: 08/26/2018 11:30 Notice Type: Patient Choice Letter Notice Delivered To: Patient Relationship to Patient: Ship Engines Operating Engineer Name: Delivery Method: HAND - Hand Delivered Janina Days: Prior Verbal Notification: Recipient Understood Notice: Yes Recipient Signature: Yes Med Rec Note Co-signed by Attending: Coverage Notice Comment: -[facility], [facility] MEDICAL SUPPLY OR ANY MEDICAL SUPPLY FOR TRILOGY MACHINE Last DP export: 08/26/18 11:48 a Patient Name: ANAHI PAREDES Page [phone] at 1257 All edits/amendments must be made on the electronic document DICTATION DATE: 08/26/18 1257 APARTMENT HOUSE MANAGER: WAYNE 08/26/18 1257 RPT#: [id number] DC DATE: STATUS: ADM IN [facility] [address] [place] [address] END OF REPORT
--- NOTE | 2018-08-26 13:22 | MORECARE ---
CASE MANAGEMENT DISCHARGE SUMMARY PATIENT: ANAHI PAREDES UNIT: [id number] ADM DATE: 08/24/18 AGE: 58 : 58 SEX: F ROOM/BED: D.8721 AUTHOR: ROGELIO,DOC PHYSICIAN: REFERRING PHYSICIAN: LAWSON STONE MD DATE OF SERVICE: 08/26/18 Discharge Plan Patient Name: ANAHI PAREDES Facility: [facility]:[place] : 1960 Planned Disposition: Home with Home Health Anticipated Discharge Date: 08/26/18 Discharge Date: Expected LOS: 2 Initial Reviewer: [email or web address] Initial Review Date: 08/26/2018 Generated: 08/26/18 2:22 pm Comments DCP- Discharge Planning Updated by [email or web address]: Rl Siddiqi on 08/26/18 12:[address] Patient Name: ANAHI PAREDES Encounter No: [id number] : 1960 Primary Insurance: MEDICAID [place] Anticipated DC Date: 08-26-2018 Planned Disposition: Home with Home Health External Planned Provider: : [facility] [place] OFFICE DISCHARGE PLANNING NOTE: CM RECEIVED ORDER FOR TRILOGY, MET WITH PT IN ROOM TO DISCUSS DISCHARGE PLANNING AND NEEDS. PT REPORTS LIVING AT HOME INDEPENDENTLY WITH HER SPOUSE. PT HAS CPAP, BEDSIDE COMMODE, GRAB BARS, HOME AND PORTABLE OXYGEN, WALKER AND WHEELCHAIR FROM [facility] SUPPLY. PT HAS HOME HEALTH WITH [employer] [facility] AND [facility]ERAP[facility] THAT SHE WANTS CONTINUED AT DISCHARGE. CM DISCUSSED AVAILABILITY OF HOME HEALTH, REHAB SERVICES AND MEDICAL EQUIPMENT. PT WANTS HOME HEALTH RESUMED AND WILL WEAR WHATEVER MACHINE THE DOCTOR FEELS NECESSARY. PT WOULD LIKE CM TO GET IT FROM [facility] AND IF THEY DON'T PROVIDE THE NEEDED EQUIPMENT, PT HAS NO PREFERENCE ON PROVIDER. CM GAVE PT PROVIDER LISTING FOR MEDICAL EQUIPMENT AND HOME HEALTH, PT SIGNED CONSENTS FOR [facility] AND [facility] / ANY MEDICAL EQUIPMENT PROVIDER. PT REPORTS HER SPOUSE WILL PICK HER UP FOR DISCHARGE HOME. CM CALLED [facility], , ADVISED BY JADA VASQUEZ THEY DO NOT DO TRILOGY MACHINE AND REFERRED PT TO [facility]. CM CALLED [facility], SPOKE TO STANISLAV, PROVIDED REFERRAL INFORMATION, WAS ADVISED PT'S INSURANCE WILL NOT PAY FOR TRILOGY AND MAY PROVIDE BIPAP. CM SPOKE TO DR. SRINIVASAN WHO PROVIDED ORDER FOR BIPAP MACHINE. CM CALLED [facility], , DISCUSSED REFERRAL WITH STANISLAV, FAXED REFERRAL TO [facility] AT [phone]. CM CALLED [facility], [place] OFFICE, , SPOKE TO OSMAR WHO REPORTS PT IS ACTIVE WITH THEM ALREADY. CM FAXED REFERRAL TO [facility] AT [phone]. FOR DISCHARGE FAX ORDER AND DISCHARGE INFORMATION TO [facility] OFFICE AT [phone], CALL AND NOTIFY [facility] OF DISCHARGE HOME AT [phone]. [facility] WILL PROCESS ORDER AND CHECK WITH PT'S INSURANCE TO DETERMINE IF PT'S INSURANCE WILL PROVIDE THE ORDERED BIPAP. Rl Siddiqi, CASE MANAGEMENT DCPIA - Discharge Planning Initial Assessment Updated by CAITLIN: Rl Siddiqi on 08/26/18 12:50 pm * Is the patient Alert and Oriented? Yes * How many steps to enter\exit or inside your home? NONE * PCP DR. BRIAN DODD, [facility] IN [place] * Pharmacy [facility] IN [place] * Preadmission Environment Home with Family * ADLs Partial Dependent * Partial ADLs (Assistance needed) Bathing Medication Management * Equipment Bedside Commode CPAP Grab Bars Oxygen Walker Wheelchair * Other Equipment HOME AND PORTABLE OXYGEN - [facility] MEDICAL, PREFERRED PROVIDER * List name and contact numbers for known caregivers / representatives who currently or will assist patient after discharge: EVERETT PAREDES, SPOUSE, * Verbal permission to speak to the caregivers and representatives has been obtained from the patient. N/A * Community resources currently utilized Home Health * Please name any agencies selected above. [facility], [facility] - NURSING AND PHYSICAL THERAPY * Additional services required to return to the preadmission environment? No * Can the patient safely return to the preadmission environment? Yes * Has this patient been hospitalized within the prior 30 days at any hospital? Yes External Providers External Provider: [facility] Next Contact Date: 08/26/2018 Service Request Date: Service Type: Resolution: Reviewer: Comments: Coverage Notice Reviewer: [email or web address] Eloina Siddiqi Notice Issued Date-Time: 08/26/2018 11:30 Notice Type: Patient Choice Letter Notice Delivered To: Patient Relationship to Patient: Pediatric Cardiologist Name: Delivery Method: HAND - Hand Delivered Janina Days: Prior Verbal Notification: Recipient Understood Notice: Yes Recipient Signature: Yes Med Rec Note Co-signed by Attending: Coverage Notice Comment: -[facility], [facility] MEDICAL SUPPLY OR ANY MEDICAL SUPPLY FOR TRILOGY MACHINE Last DP export: 08/26/18 11:57 a Patient Name: ANAHI PAREDES Page [phone] at 1322 All edits/amendments must be made on the electronic document DICTATION DATE: 08/26/18 1321 BAR TENDER: WAYNE 08/26/18 1321 RPT#: [id number] DC DATE: STATUS: ADM IN [facility] [address] [place] [address] END OF REPORT
--- NOTE | 2018-08-26 13:29 | MORECARE ---
CASE MANAGEMENT DISCHARGE SUMMARY PATIENT: ANAHI PAREDES UNIT: [id number] ADM DATE: 08/24/18 AGE: 58 : 58 SEX: F ROOM/BED: D.9993 AUTHOR: ROGELIO,DOC PHYSICIAN: REFERRING PHYSICIAN: LAWSON STONE MD DATE OF SERVICE: 08/26/18 Discharge Plan Patient Name: ANAHI PAREDES Facility: [facility]:[place] : 1960 Planned Disposition: Home with Home Health Anticipated Discharge Date: 08/26/18 Discharge Date: Expected LOS: 2 Initial Reviewer: [email or web address] Initial Review Date: 08/26/2018 Generated: 08/26/18 2:29 pm Comments DCP- Discharge Planning Updated by [email or web address]: Rl Siddiqi on 08/26/18 12:[address] Patient Name: ANAHI PAREDES Encounter No: [id number] : 1960 Primary Insurance: MEDICAID [place] Anticipated DC Date: 08-26-2018 Planned Disposition: Home with Home Health External Planned Provider: : [facility] [place] OFFICE DISCHARGE PLANNING NOTE: CM RECEIVED ORDER FOR TRILOGY, MET WITH PT IN ROOM TO DISCUSS DISCHARGE PLANNING AND NEEDS. PT REPORTS LIVING AT HOME INDEPENDENTLY WITH HER SPOUSE. PT HAS CPAP, BEDSIDE COMMODE, GRAB BARS, HOME AND PORTABLE OXYGEN, WALKER AND WHEELCHAIR FROM [facility] SUPPLY. PT HAS HOME HEALTH WITH [employer] [facility]AP[facility] THAT SHE WANTS CONTINUED AT DISCHARGE. CM DISCUSSED AVAILABILITY OF HOME HEALTH, REHAB SERVICES AND MEDICAL EQUIPMENT. PT WANTS HOME HEALTH RESUMED AND WILL WEAR WHATEVER MACHINE THE DOCTOR FEELS NECESSARY. PT WOULD LIKE CM TO GET IT FROM [facility] AND IF THEY DON'T PROVIDE THE NEEDED EQUIPMENT, PT HAS NO PREFERENCE ON PROVIDER. CM GAVE PT PROVIDER LISTING FOR MEDICAL EQUIPMENT AND HOME HEALTH, PT SIGNED CONSENTS FOR [facility] AND [facility] / ANY MEDICAL EQUIPMENT PROVIDER. PT REPORTS HER SPOUSE WILL PICK HER UP FOR DISCHARGE HOME. CM CALLED [facility], , ADVISED BY JADA VASQUEZ THEY DO NOT DO TRILOGY MACHINE AND REFERRED PT TO [facility]. CM CALLED [facility], SPOKE TO STANISLAV, PROVIDED REFERRAL INFORMATION, WAS ADVISED PT'S INSURANCE WILL NOT PAY FOR TRILOGY AND MAY PROVIDE BIPAP. CM SPOKE TO DR. SRINIVASAN WHO PROVIDED ORDER FOR BIPAP MACHINE. CM CALLED [facility], , DISCUSSED REFERRAL WITH STANISLAV, FAXED REFERRAL TO [facility] AT [phone]. CM CALLED [facility] [employer], [place] OFFICE, , SPOKE TO OSMAR WHO REPORTS PT IS ACTIVE WITH THEM ALREADY. CM FAXED REFERRAL TO [facility] AT [phone]. FOR DISCHARGE FAX ORDER AND DISCHARGE INFORMATION TO [facility] OFFICE AT [phone], CALL AND NOTIFY [facility] OF DISCHARGE HOME AT [phone]. [facility] WILL PROCESS ORDER AND CHECK WITH PT'S INSURANCE TO DETERMINE IF PT'S INSURANCE WILL PROVIDE THE ORDERED BIPAP. Rl Siddiqi, CASE MANAGEMENT DCPIA - Discharge Planning Initial Assessment Updated by CAITLIN: Rl Siddiqi on 08/26/18 12:50 pm * Is the patient Alert and Oriented? Yes * How many steps to enter\exit or inside your home? NONE * PCP DR. BRIAN DODD, [facility] IN [place] * Pharmacy [facility] IN [place] * Preadmission Environment Home with Family * ADLs Partial Dependent * Partial ADLs (Assistance needed) Bathing Medication Management * Equipment Bedside Commode CPAP Grab Bars Oxygen Walker Wheelchair * Other Equipment HOME AND PORTABLE OXYGEN - [facility] MEDICAL, PREFERRED PROVIDER * List name and contact numbers for known caregivers / representatives who currently or will assist patient after discharge: EVERETT PAREDES, SPOUSE, * Verbal permission to speak to the caregivers and representatives has been obtained from the patient. N/A * Community resources currently utilized Home Health * Please name any agencies selected above. [email or web address], [place] - NURSING AND PHYSICAL THERAPY * Additional services required to return to the preadmission environment? No * Can the patient safely return to the preadmission environment? Yes * Has this patient been hospitalized within the prior 30 days at any hospital? Yes External Providers External Provider: [facility] [place] Next Contact Date: 08/26/2018 Service Request Date: Service Type: Resolution: Reviewer: Comments: Coverage Notice Reviewer: [id number] - Rl Siddiqi Notice Issued Date-Time: 08/26/2018 11:30 Notice Type: Patient Choice Letter Notice Delivered To: Patient Relationship to Patient: Lithographic Press Operator Apprentice Name: Delivery Method: HAND - Hand Delivered Janina Days: Prior Verbal Notification: Recipient Understood Notice: Yes Recipient Signature: Yes Med Rec Note Co-signed by Attending: Coverage Notice Comment: -[email or web address], [facility] MEDICAL SUPPLY OR ANY MEDICAL SUPPLY FOR TRILOGY MACHINE Last DP export: 08/26/18 12:22 p Patient Name: ANAHI PAREDES Page [phone] at 1329 All edits/amendments must be made on the electronic document DICTATION DATE: 08/26/18 1329 SUPERVISOR DRY CLEANING: WAYNE 08/26/18 1329 RPT#: [id number] DC DATE: STATUS: ADM IN [facility] [address] [place] [address] END OF REPORT
--- NOTE | 2018-08-26 13:44 | NUR ---
PER NICHELLE MCCANN CHEF DE CUISINE CONSULT VASCULAR ACCESS NURSE TO START IV OR MIDLINE. ORDER NOTED.
--- NOTE | 2018-08-26 15:08 | NUR ---
PT IS HAVING A CT GUIDED LUNG BIOPSY ON 08/28/18, PT ASKED ME TO CALL HER TO LET HIM KNOW. I SPOKE WITH SPOUSE (EVERETT) AND NOTIFIED HIM OF THIS ORDER. CALL LIGHT IN REACH, WILL CONTINUE TO MONITOR.
[2018-08-26 16:17] VITALS: BP 139/73
--- NOTE | 2018-08-26 16:32 | MORECARE ---
CASE MANAGEMENT DISCHARGE SUMMARY PATIENT: ANAHI PAREDES UNIT: [id number] ADM DATE: 08/24/18 AGE: 58 : 58 SEX: F ROOM/BED: D.4433 AUTHOR: ROGELIO,DOC PHYSICIAN: REFERRING PHYSICIAN: LAWSON STONE MD DATE OF SERVICE: 08/26/18 Discharge Plan Patient Name: ANAHI PAREDES Facility: [facility]:[place] : 1960 Planned Disposition: Home with Home Health Anticipated Discharge Date: 08/26/18 Discharge Date: Expected LOS: 2 Initial Reviewer: [email or web address] Initial Review Date: 08/26/2018 Generated: 08/26/18 5:31 pm Comments DCP- Discharge Planning Updated by [email or web address]: Rl Shah on 08/26/18 3:[address] Patient Name: ANAHI PAREDES Encounter No: [id number] : 1960 Primary Insurance: MEDICAID [place] Anticipated DC Date: 08-26-2018 Planned Disposition: Home with Home Health External Planned Provider: : [email or web address] [facility] [place] OFFICE DISCHARGE PLANNING NOTE: CM RECEIVED ORDER FOR TRILOGY, MET WITH PT IN ROOM TO DISCUSS DISCHARGE PLANNING AND NEEDS. PT REPORTS LIVING AT HOME INDEPENDENTLY WITH HER SPOUSE. PT HAS CPAP, BEDSIDE COMMODE, GRAB BARS, HOME AND PORTABLE OXYGEN, WALKER AND WHEELCHAIR FROM [employer] SUPPLY. PT HAS HOME HEALTH WITH [email or web address] [facility] FOR [facility] AND PHYSICAL THERAPY THAT SHE WANTS CONTINUED AT DISCHARGE. CM DISCUSSED AVAILABILITY OF HOME HEALTH, REHAB SERVICES AND MEDICAL EQUIPMENT. PT WANTS HOME HEALTH RESUMED AND WILL WEAR WHATEVER MACHINE THE DOCTOR FEELS NECESSARY. PT WOULD LIKE CM TO GET IT FROM [employer] AND IF THEY DON'T PROVIDE THE NEEDED EQUIPMENT, PT HAS NO PREFERENCE ON PROVIDER. CM GAVE PT PROVIDER LISTING FOR MEDICAL EQUIPMENT AND HOME HEALTH, PT SIGNED CONSENTS FOR [email or web address] [facility] AND [employer] / ANY MEDICAL EQUIPMENT PROVIDER. PT REPORTS HER SPOUSE WILL PICK HER UP FOR DISCHARGE HOME. CM CALLED [employer], , ADVISED BY JADA VASQUEZ THEY DO NOT DO TRILOGY MACHINE AND REFERRED PT TO [facility]. CM CALLED [facility], SPOKE TO STANISLAV, PROVIDED REFERRAL INFORMATION, WAS ADVISED PT'S INSURANCE WILL NOT PAY FOR TRILOGY AND MAY PROVIDE BIPAP. CM SPOKE TO DR. SRINIVASAN WHO PROVIDED ORDER FOR BIPAP MACHINE. CM CALLED [facility], , DISCUSSED REFERRAL WITH STANISLAV, FAXED REFERRAL TO [facility] AT [phone]. CM CALLED [facility] OFFICE, , SPOKE TO OSMAR WHO REPORTS PT IS ACTIVE WITH THEM ALREADY. CM FAXED REFERRAL TO [facility] AT [phone]. FOR DISCHARGE FAX ORDER AND DISCHARGE INFORMATION TO [facility] OFFICE AT [phone], CALL AND NOTIFY [facility] OF DISCHARGE HOME AT [phone]. [facility] WILL PROCESS ORDER AND CHECK WITH PT'S INSURANCE TO DETERMINE IF PT'S INSURANCE WILL PROVIDE THE ORDERED BIPAP. Rl Shah, CASE MANAGEMENT Appended by Rl Shah on 08/26/2018 16:28 CDT: CM RECEIVED CALL FROM JOANN OF [facility] WHO INFORMED CM THAT THEY ARE NOT GOING TO BE ABLE TO CONTINUE TO PROCESS BIPAP ORDER WITHOUT AN OVERNIGHT PULSE OXIMETRY TEST ON PT'S PRESCRIBED OXYGEN LITER FLOW. THE BIPAP ORDER WILL ALSO NEED TO INCLUDE BIPAP SETTINGS ON THE ORDER. FOR DISCHARGE FAX ORDER AND DISCHARGE INFORMATION TO [facility] OFFICE AT [phone], CALL AND NOTIFY [facility] OF DISCHARGE HOME AT [phone]. RL SHAH, CASE MANAGEMENT DCPIA - Discharge Planning Initial Assessment Updated by [email or web address]: Rl Shah on 08/26/18 12:50 pm * Is the patient Alert and Oriented? Yes * How many steps to enter\exit or inside your home? NONE * PCP DR. BRIAN DODD, [facility] [place] * Pharmacy [facility] IN [place] * Preadmission Environment Home with Family * ADLs Partial Dependent * Partial ADLs (Assistance needed) Bathing Medication Management * Equipment Bedside Commode CPAP Grab Bars Oxygen Walker Wheelchair * Other Equipment HOME AND PORTABLE OXYGEN - [employer] [facility], PREFERRED PROVIDER * List name and contact numbers for known caregivers / representatives who currently or will assist patient after discharge: EVERETT PAREDES, SPOUSE, * Verbal permission to speak to the caregivers and representatives has been obtained from the patient. N/A * Community resources currently utilized Home Health * Please name any agencies selected above. [email or web address], [place] - NURSING AND PHYSICAL THERAPY * Additional services required to return to the preadmission environment? No * Can the patient safely return to the preadmission environment? Yes * Has this patient been hospitalized within the prior 30 days at any hospital? Yes Coverage Notice Reviewer: [email or web address] - Rl Shah Notice Issued Date-Time: 08/26/2018 11:30 Notice Type: Patient Choice Letter Notice Delivered To: Patient Relationship to Patient: Shingle Inspector Name: Delivery Method: HAND - Hand Delivered Janina Days: Prior Verbal Notification: Recipient Understood Notice: Yes Recipient Signature: Yes Med Rec Note Co-signed by Attending: Coverage Notice Comment: -[email or web address], [place] [facility] [facility] OR ANY MEDICAL SUPPLY FOR TRILOGY MACHINE Last DP export: 08/26/18 12:29 p Patient Name: ANAHI PAREDES Page [id number] at 1632 All edits/amendments must be made on the electronic document DICTATION DATE: 08/26/18 1631 OCCUPATIONAL THER: WAYNE 08/26/18 1631 RPT#: [id number] DC DATE: STATUS: ADM IN [facility] [address] [place] [address] END OF REPORT
[2018-08-26 20:00] VITALS: BP 112/76
--- NOTE | 2018-08-26 20:00 | NUR ---
ROUNDS COMPLETED. VSS, AA0X3, NO S/S OF RR DISTRESS. PT C/O OF IV HURTING. FLUSHED PIV. PT STATES IT FEELS A LOT BETTER. ASSIST PT UP TO BEDSIDE COMODE.PT ON BIPAP 30% AND O2 2L. BRUISES TO RIGHT AND LEFT FORE ARM. SCD'S ON. PT DENIES ANY FURTHER NEEDS AT THIS TIME. WILL CPOC. CL IN REACH, BED IN LOW, SR UP X2.
--- NOTE | 2018-08-26 22:45 | NUR ---
FOUND PT PIV INFILTRATED. REMOVED PIV ON RIGHT WRIST, APPLY 2X2 GAUZE AND TAPED. RESITED A NEW PIV ON RIGHT HAND 22G X1 STICK. PT TOLERATE WELL. PT C/O PAIN CHEST PAIN. KETOROLAC IV GIVEN. PT DENIES ANY FURTHER NEEDS AT THIS TIME WILL CTM.
[2018-08-27] VITALS: BP 98/65
[2018-08-27 04:00] VITALS: BP 99/70
[2018-08-27 05:05] LABS: BASOPHILS 0 % (0-2); EOSINOPHILS 0 % (0-7); HEMATOCRIT 29.9 % (36.0-48.0); HEMOGLOBIN 9.3 g/dL (12-16); IMMATURE GRANULOCYTES 0.4 % (0-5); LYMPHOCYTES 16.3 % (15-50); MCH 29.2 pg (26.0-34.0); MCHC 31.1 g/dL (31.0-37.0); MCV 93.7 fL (80.0-100.0); MEAN PLATELET VOLUME 10.8 fL (7.4-10.4); MONOCYTES 7.5 % (2-11); NEUTROPHILS 75.8 % (40-80); PLATELET COUNT 157 10x3/uL (130-400); RBC 3.19 10x6/uL (4.00-5.40); RDW 14.2 % (11.5-14.5); WBC 5.1 10x3/uL (4.8-10.8)
[2018-08-27 05:21] LABS: APTT 23.9 SECONDS (22.8-39.4); INR 1.1 (0.85-1.17); PROTIME 13.7 SECONDS (11.6-15.0)
[2018-08-27 05:37] LABS: ALBUMIN 3.1 g/dL (3.4-5.0); ANION GAP 8.4 mmol/L (8-16); BILIRUBIN - TOTAL 0.11 mg/dL (0.2-1.3); CALCIUM 8.9 mg/dL (8.5-10.1); CARBON DIOXIDE 35.2 mmol/L (21.0-32.0); MAGNESIUM - SERUM 2.2 mg/dL (1.8-2.4); POTASSIUM - SERUM 4.6 mmol/L (3.5-5.1); PROTEIN - SERUM 5.5 g/dL (6.4-8.2)
[2018-08-27 05:38] LABS: CREATININE - SERUM 0.9 mg/dL (0.6-1.3)
--- NOTE | 2018-08-27 07:45 | MORECARE ---
CASE MANAGEMENT DISCHARGE SUMMARY PATIENT: ANAHI PAREDES UNIT: [id number] ADM DATE: 08/24/18 AGE: 58 : 58 SEX: F ROOM/BED: D.7553 AUTHOR: ROGELIO,DOC PHYSICIAN: REFERRING PHYSICIAN: LAWSON STONE MD DATE OF SERVICE: 08/27/18 Discharge Plan Patient Name: ANAHI PAREDES Facility: [facility]:[place] : 1960 Planned Disposition: Home with Home Health Anticipated Discharge Date: 08/26/18 Discharge Date: Expected LOS: 2 Initial Reviewer: [email or web address] Initial Review Date: 08/26/2018 Generated: 08/27/18 8:44 am Comments DCP- Discharge Planning Updated by [email or web address]: Rl Shah on 08/26/18 3:[address] Patient Name: ANAHI PAREDES Encounter No: [id number] : 1960 Primary Insurance: MEDICAID [place] Anticipated DC Date: 08-26-2018 Planned Disposition: Home with Home Health External Planned Provider: : [facility] [facility] [place] OFFICE DISCHARGE PLANNING NOTE: CM RECEIVED ORDER FOR TRILOGY, MET WITH PT IN ROOM TO DISCUSS DISCHARGE PLANNING AND NEEDS. PT REPORTS LIVING AT HOME INDEPENDENTLY WITH HER SPOUSE. PT HAS CPAP, BEDSIDE COMMODE, GRAB BARS, HOME AND PORTABLE OXYGEN, WALKER AND WHEELCHAIR FROM [employer] SUPPLY. PT HAS HOME HEALTH WITH [employer] [facility] FOR NURSING AND PHYSICAL THERAPY THAT SHE WANTS CONTINUED AT DISCHARGE. CM DISCUSSED AVAILABILITY OF HOME HEALTH, REHAB SERVICES AND MEDICAL EQUIPMENT. PT WANTS HOME HEALTH RESUMED AND WILL WEAR WHATEVER MACHINE THE DOCTOR FEELS NECESSARY. PT WOULD LIKE CM TO GET IT FROM [employer] AND IF THEY DON'T PROVIDE THE NEEDED EQUIPMENT, PT HAS NO PREFERENCE ON PROVIDER. CM GAVE PT PROVIDER LISTING FOR MEDICAL EQUIPMENT AND HOME HEALTH, PT SIGNED CONSENTS FOR [facility] [facility] AND [employer] / ANY MEDICAL EQUIPMENT PROVIDER. PT REPORTS HER SPOUSE WILL PICK HER UP FOR DISCHARGE HOME. CM CALLED [employer], , ADVISED BY JADA VASQUEZ THEY DO NOT DO TRILOGY MACHINE AND REFERRED PT TO [facility]. CM CALLED [facility], SPOKE TO STANISLAV, PROVIDED REFERRAL INFORMATION, WAS ADVISED PT'S INSURANCE WILL NOT PAY FOR TRILOGY AND MAY PROVIDE BIPAP. CM SPOKE TO DR. SRINIVASAN WHO PROVIDED ORDER FOR BIPAP MACHINE. CM CALLED [facility], , DISCUSSED REFERRAL WITH STANISLAV, FAXED REFERRAL TO [facility] AT [phone]. CM CALLED [facility] OFFICE, , SPOKE TO OSMAR WHO REPORTS PT IS ACTIVE WITH THEM ALREADY. CM FAXED REFERRAL TO [facility] AT [phone]. FOR DISCHARGE FAX ORDER AND DISCHARGE INFORMATION TO [facility] OFFICE AT [phone], CALL AND NOTIFY [facility] OF DISCHARGE HOME AT [phone]. [facility] WILL PROCESS ORDER AND CHECK WITH PT'S INSURANCE TO DETERMINE IF PT'S INSURANCE WILL PROVIDE THE ORDERED BIPAP. Rl Shah, CASE MANAGEMENT Appended by Rl Shah on 08/26/2018 16:28 CDT: CM RECEIVED CALL FROM JOANN OF [facility] WHO INFORMED CM THAT THEY ARE NOT GOING TO BE ABLE TO CONTINUE TO PROCESS BIPAP ORDER WITHOUT AN OVERNIGHT PULSE OXIMETRY TEST ON PT'S PRESCRIBED OXYGEN LITER FLOW. THE BIPAP ORDER WILL ALSO NEED TO INCLUDE BIPAP SETTINGS ON THE ORDER. FOR DISCHARGE FAX ORDER AND DISCHARGE INFORMATION TO [facility] OFFICE AT [phone], CALL AND NOTIFY [facility] OF DISCHARGE HOME AT [phone]. RL SHAH, CASE MANAGEMENT DCPIA - Discharge Planning Initial Assessment Updated by [id number]: Rl Shah on 08/26/18 12:50 pm * Is the patient Alert and Oriented? Yes * How many steps to enter\exit or inside your home? NONE * PCP DR. BRIAN DODD, [facility] [place] * Pharmacy [facility] IN [place] * Preadmission Environment Home with Family * ADLs Partial Dependent * Partial ADLs (Assistance needed) Bathing Medication Management * Equipment Bedside Commode CPAP Grab Bars Oxygen Walker Wheelchair * Other Equipment HOME AND PORTABLE OXYGEN - [employer] [facility], PREFERRED PROVIDER * List name and contact numbers for known caregivers / representatives who currently or will assist patient after discharge: EVERETT PAREDES, SPOUSE, * Verbal permission to speak to the caregivers and representatives has been obtained from the patient. N/A * Community resources currently utilized Home Health * Please name any agencies selected above. [facility], [place] - NURSING AND PHYSICAL THERAPY * Additional services required to return to the preadmission environment? No * Can the patient safely return to the preadmission environment? Yes * Has this patient been hospitalized within the prior 30 days at any hospital? Yes Coverage Notice Reviewer: [email or web address] - Rl Shah Notice Issued Date-Time: 08/26/2018 11:30 Notice Type: Patient Choice Letter Notice Delivered To: Patient Relationship to Patient: Slot Floorperson Name: Delivery Method: HAND - Hand Delivered Janina Days: Prior Verbal Notification: Recipient Understood Notice: Yes Recipient Signature: Yes Med Rec Note Co-signed by Attending: Coverage Notice Comment: -[facility], [place] [facility] [facility] OR ANY MEDICAL SUPPLY FOR TRILOGY MACHINE Last DP export: 08/26/18 3:32 p Patient Name: ANAHI PAREDES Page [id number] at 0745 All edits/amendments must be made on the electronic document DICTATION DATE: 08/27/18743 INTERIOR DESIGN INSTRUCTOR: WAYNE 08/27/18743 RPT#: [id number] DC DATE: STATUS: ADM IN [facility] [address] [place] [address] END OF REPORT
[2018-08-27 07:50] VITALS: BP 101/62
[2018-08-27 11:30] VITALS: BP 104/60
--- NOTE | 2018-08-27 13:53 | NUR ---
Nutrition follow-up: Diet: ADA consistent CHO PO intake 100% of most meals Labs reviewed Wt: 188# RDN following.
--- NOTE | 2018-08-27 14:58 | NUR ---
STOOL SAMPLE SENT TO LAB.
--- NOTE | 2018-08-27 15:16 | MORECARE ---
CASE MANAGEMENT DISCHARGE SUMMARY PATIENT: ANAHI PAREDES UNIT: [id number] ADM DATE: 08/24/18 AGE: 58 : 58 SEX: F ROOM/BED: D.2109 AUTHOR: ROGELIO,DOC PHYSICIAN: REFERRING PHYSICIAN: LAWSON STONE MD DATE OF SERVICE: 08/27/18 Discharge Plan Patient Name: ANAHI PAREDES Facility: [facility]:[place] : 1960 Planned Disposition: Home with Home Health Anticipated Discharge Date: 08/26/18 Discharge Date: Expected LOS: 2 Initial Reviewer: [email or web address] Initial Review Date: 08/26/2018 Generated: 08/27/18 4:15 pm Comments DCP- Discharge Planning Updated by [id number]: Xiomara Shah on 08/27/18 2:[address] Patient Name: ANAHI PAREDES Encounter No: [id number] : 1960 Primary Insurance: MEDICAID [place] Anticipated DC Date: 08-26-2018 Planned Disposition: Home with Home Health External Planned Provider: [facility] DCP follow-up note: JOANN OF [facility] PREVIOUSLY INFORMED CM THAT THEY ARE NOT GOING TO BE ABLE TO CONTINUE TO PROCESS BIPAP ORDER WITHOUT AN OVERNIGHT PULSE OXIMETRY TEST ON PT'S PRESCRIBED OXYGEN LITER FLOW. THE BIPAP ORDER WILL ALSO NEED TO INCLUDE BIPAP SETTINGS ON THE ORDER. CM SPOKE TO [facility]ARETH [facility], GARETH BELIVES THAT MEDICAID WILL PAY FOR A TRILOGY. CM PROVIDED REFERRAL INFORMATION TO GARETH WHO WILL PROCESS ORDER AND INFORM CM IF MEDICAID WILL COVER A TRILOGY MACHINE. CM WAITING GARETH FROM [facility] OFFICE TO DETERMINE IF TRILOGY WILL BE COVERED BY [place] MEDICAID. FOR DISCHARGE FAX ORDER AND DISCHARGE INFORMATION TO [facility] OFF[facility] AT [phone], CALL AND NOTIFY [facility] OF DISCHARGE HOME AT [phone]. ARNOLDO DUNCAN DCP- Discharge Planning Updated by [id number]: Xiomara Shah on 08/26/18 3:[address] Patient Name: ANAHI PAREDES Encounter No: [id number] : 1960 Primary Insurance: MEDICAID [facility] Date: 08-26-2018 Planned Disposition: Home with Home Health External Planned Provider: : [employer] [facility] [place] OFFICE DISCHARGE PLANNING NOTE: CM RECEIVED ORDER FOR TRILOGY, MET WITH PT IN ROOM TO DISCUSS DISCHARGE PLANNING AND NEEDS. PT REPORTS LIVING AT HOME INDEPENDENTLY WITH HER SPOUSE. PT HAS CPAP, BEDSIDE COMMODE, GRAB BARS, HOME AND PORTABLE OXYGEN, WALKER AND WHEELCHAIR FROM [employer] SUPPLY. PT HAS HOME HEALTH WITH [facility] [place] FOR NURSING AND PHYSICAL THERAPY THAT SHE WANTS CONTINUED AT DISCHARGE. CM DISCUSSED AVAILABILITY OF HOME HEALTH, REHAB SERVICES AND MEDICAL EQUIPMENT. PT WANTS HOME HEALTH RESUMED AND WILL WEAR WHATEVER MACHINE THE DOCTOR FEELS NECESSARY. PT WOULD LIKE CM TO GET IT FROM [employer] AND IF THEY DON'T PROVIDE THE NEEDED EQUIPMENT, PT HAS NO PREFERENCE ON PROVIDER. CM GAVE PT PROVIDER LISTING FOR MEDICAL EQUIPMENT AND HOME HEALTH, PT SIGNED CONSENTS FOR [employer] [facility] AND [employer] / ANY MEDICAL EQUIPMENT PROVIDER. PT REPORTS HER SPOUSE WILL PICK HER UP FOR DISCHARGE HOME. CM CALLED [employer], , ADVISED BY JADA VASQUEZ THEY DO NOT DO TRILOGY MACHINE AND REFERRED PT TO [facility]. CM CALLED [facility], SPOKE TO STANISLAV, PROVIDED REFERRAL INFORMATION, WAS ADVISED PT'S INSURANCE WILL NOT PAY FOR TRILOGY AND MAY PROVIDE BIPAP. YANIRA SPOKE TO DR. SRINIVASAN WHO PROVIDED ORDER FOR BIPAP MACHINE. CM CALLED [facility], , DISCUSSED REFERRAL WITH STANISLAV, FAXED REFERRAL TO [facility] AT [phone]. CM CALLED [employer] [facility] [place] OFFICE, , SPOKE TO OSMAR WHO REPORTS PT IS ACTIVE WITH THEM ALREADY. CM FAXED REFERRAL TO [employer] [facility] AT [phone]. FOR DISCHARGE FAX ORDER AND DISCHARGE INFORMATION TO [facility] [place] OFFICE AT [phone], CALL AND NOTIFY [facility] OF DISCHARGE HOME AT [phone]. [facility] WILL PROCESS ORDER AND CHECK WITH PT'S INSURANCE TO DETERMINE IF PT'S INSURANCE WILL PROVIDE THE ORDERED BIPAP. Xiomara Shah, CASE MANAGEMENT Appended by Xiomara Shah on 08/26/2018 16:28 CDT: CM RECEIVED CALL FROM JOANN OF [facility] WHO INFORMED CM THAT THEY ARE NOT GOING TO BE ABLE TO CONTINUE TO PROCESS BIPAP ORDER WITHOUT AN OVERNIGHT PULSE OXIMETRY TEST ON PT'S PRESCRIBED OXYGEN LITER FLOW. THE BIPAP ORDER WILL ALSO NEED TO INCLUDE BIPAP SETTINGS ON THE ORDER. FOR DISCHARGE FAX ORDER AND DISCHARGE INFORMATION TO [facility] OFF[facility] AT [phone], CALL AND NOTIFY [facility] OF DISCHARGE HOME AT [phone]. XIOMARA SHAH, CASE MANAGEMENT DCPIA - Discharge Planning Initial Assessment Updated by [email or web address]: Xiomara Shah on 08/26/18 12:50 pm * Is the patient Alert and Oriented? Yes * How many steps to enter\exit or inside your home? NONE * PCP DR. BRIAN DODD, [facility] [place] * Pharmacy [facility] IN [place] * Preadmission Environment Home with Family * ADLs Partial Dependent * Partial ADLs (Assistance needed) Bathing Medication Management * Equipment Bedside Commode CPAP Grab Bars Oxygen Walker Wheelchair * Other Equipment HOME AND PORTABLE OXYGEN - [facility], PREFERRED PROVIDER * List name and contact numbers for known caregivers / representatives who currently or will assist patient after discharge: EVERETT PAREDES, SPOUSE, * Verbal permission to speak to the caregivers and representatives has been obtained from the patient. N/A * Community resources currently utilized Home Health * Please name any agencies selected above. [employer] [facility] * Additional services required to return to the preadmission environment? No * Can the patient safely return to the preadmission environment? Yes * Has this patient been hospitalized within the prior 30 days at any hospital? Yes Coverage Notice Reviewer: [id number] - Xiomara Shah Notice Issued Date-Time: 08/26/2018 11:30 Notice Type: Patient Choice Letter Notice Delivered To: Patient Relationship to Patient: Lumber Inspector Name: Delivery Method: HAND - Hand Delivered Janina Days: Prior Verbal Notification: Recipient Understood Notice: Yes Recipient Signature: Yes Med Rec Note Co-signed by Attending: Coverage Notice Comment: -[employer], [facility] MEDICAL SUPPLY OR ANY MEDICAL SUPPLY FOR TRILOGY MACHINE Last DP export: 08/27/18 6:45 a Patient Name: ANAHI PAREDES Page [id number] at 1516 All edits/amendments must be made on the electronic document DICTATION DATE: 08/27/181514 IMAGING SERVICES DIRECTOR: WAYNE 08/27/181514 RPT#: [id number] DC DATE: STATUS: ADM IN [facility] [address] [place] [address] END OF REPORT
[2018-08-27 15:39] VITALS: BP 106/67
--- NOTE | 2018-08-27 17:10 | MORECARE ---
CASE MANAGEMENT DISCHARGE SUMMARY PATIENT: ANAHI PAREDES UNIT: [id number] ADM DATE: 08/24/18 AGE: 58 : 58 SEX: F ROOM/BED: D.2100 AUTHOR: ROGELIO,DOC PHYSICIAN: REFERRING PHYSICIAN: LAWSON STONE MD DATE OF SERVICE: 08/27/18 Discharge Plan Patient Name: ANAHI PAREDES Facility: [facility]:[place] : 1960 Planned Disposition: Home with Home Health Anticipated Discharge Date: 08/26/18 Discharge Date: Expected LOS: 2 Initial Reviewer: [id number] Initial Review Date: 08/26/2018 Generated: 08/27/18 6:10 pm Comments DCP- Discharge Planning Updated by [id number]: Xiomara Shah on 08/27/18 4:[address] Patient Name: ANAHI PAREDES Encounter No: [id number] : 1960 Primary Insurance: MEDICAID [place] Anticipated DC Date: 08-26-2018 Planned Disposition: Home with Home Health External Planned Provider: JESSE CERNA DCP follow-up note: [facility] PREVIOUSLY INFORMED CM THAT THEY ARE NOT GOING TO BE ABLE TO CONTINUE TO PROCESS BIPAP ORDER WITHOUT AN OVERNIGHT PULSE OXIMETRY TEST ON PT'S PRESCRIBED OXYGEN LITER FLOW. THE BIPAP ORDER WILL ALSO NEED TO INCLUDE BIPAP SETTINGS ON THE ORDER. YANIRA SPOKE TO [facility] AT [facility], GARETH BELIVES THAT MEDICAID WILL PAY FOR A TRILOGY. YANIRA PROVIDED REFERRAL INFORMATION TO GARETH WHO WILL PROCESS ORDER AND INFORM CM IF MEDICAID WILL COVER A TRILOGY MACHINE. YANIRA WAITING GARETH FROM [facility] TO DETERMINE IF TRILOGY WILL BE COVERED BY [place]. FOR DISCHARGE FAX ORDER AND DISCHARGE INFORMATION TO [facility] OFF[facility] AT [phone], CALL AND NOTIFY DENNYS OF DISCHARGE HOME AT [phone]. XIOMARA SHAH, CASE MANAGEMENT Appended by Xiomara Shah on 08/27/2018 17:00 CDT: YANIRA RECEIVED CALL FROM GARETH FROM [facility] WHO INFORMED CM THAT TRILOGY WILL BE COVERED BY [place], SHE HAS CALLED [facility] AND SPOKE TO DR. KENNEDY NURSE AND REQUESTED PRIOR AUTHORIZATION FORM TO BE SIGNED. GARETH TO FAX ORDER FOR DR. SRINIVASAN TO SIGN FOR TRILOGY. CM NOTIFIED DR. SRINIVASAN. CM TO OBTAIN DOCTORS SIGNATURE FOR TRILOGY WHEN ORDER RECEIVED AND FAX BACK TO [facility] TO CONTINUE TRILOGY ORDER PROCESSING. FOR DISCHARGE FAX ORDER AND DISCHARGE INFORMATION TO [facility] [place] OFFICE AT [phone], CALL AND NOTIFY DENNYS OF DISCHARGE HOME AT [phone]. XIOMARA SHAH, CASE MANAGEMENT DCP- Discharge Planning Updated by [id number]: Xiomara Shah on 08/26/18 3:[address] Patient Name: ANAHI PAREDES Encounter No: [id number] : 1960 Primary Insurance: MEDICAID [facility] Date: 08-26-2018 Planned Disposition: Home with Home Health External Planned Provider: : [employer] [facility] [place] OFFICE DISCHARGE PLANNING NOTE: CM RECEIVED ORDER FOR TRILOGY, MET WITH PT IN ROOM TO DISCUSS DISCHARGE PLANNING AND NEEDS. PT REPORTS LIVING AT HOME INDEPENDENTLY WITH HER SPOUSE. PT HAS CPAP, BEDSIDE COMMODE, GRAB BARS, HOME AND PORTABLE OXYGEN, WALKER AND WHEELCHAIR FROM [employer] SUPPLY. PT HAS HOME HEALTH WITH [facility] OUT OF [place] FOR NURSING AND PHYSICAL THERAPY THAT SHE WANTS CONTINUED AT DISCHARGE. CM DISCUSSED AVAILABILITY OF HOME HEALTH, REHAB SERVICES AND MEDICAL EQUIPMENT. PT WANTS HOME HEALTH RESUMED AND WILL WEAR WHATEVER MACHINE THE DOCTOR FEELS NECESSARY. PT WOULD LIKE CM TO GET IT FROM [employer] AND IF THEY DON'T PROVIDE THE NEEDED EQUIPMENT, PT HAS NO PREFERENCE ON PROVIDER. CM GAVE PT PROVIDER LISTING FOR MEDICAL EQUIPMENT AND HOME HEALTH, PT SIGNED CONSENTS FOR [employer] AND [employer] / ANY MEDICAL EQUIPMENT PROVIDER. PT REPORTS HER SPOUSE WILL PICK HER UP FOR DISCHARGE HOME. CM CALLED [employer], , ADVISED BY JADA VASQUEZ THEY DO NOT DO TRILOGY MACHINE AND REFERRED PT TO [facility]. CM CALLED [facility], SPOKE TO STANISLAV, PROVIDED REFERRAL INFORMATION, WAS ADVISED PT'S INSURANCE WILL NOT PAY FOR TRILOGY AND MAY PROVIDE BIPAP. CM SPOKE TO DR. SRINIVASAN WHO PROVIDED ORDER FOR BIPAP MACHINE. CM CALLED [facility], , DISCUSSED REFERRAL WITH STANISLAV, FAXED REFERRAL TO [facility] AT [phone]. CM CALLED [facility] OFFICE, , SPOKE TO OSMAR WHO REPORTS PT IS ACTIVE WITH THEM ALREADY. CM FAXED REFERRAL TO [facility] AT [phone]. FOR DISCHARGE FAX ORDER AND DISCHARGE INFORMATION TO [facility] OFFICE AT [phone], CALL AND NOTIFY [facility] OF DISCHARGE HOME AT [phone]. [facility] WILL PROCESS ORDER AND CHECK WITH PT'S INSURANCE TO DETERMINE IF PT'S INSURANCE WILL PROVIDE THE ORDERED BIPAP. Xiomara Shah, CASE MANAGEMENT Appended by Xiomara Shah on 08/26/2018 16:28 CDT: CM RECEIVED CALL FROM JOANN OF [facility] WHO INFORMED CM THAT THEY ARE NOT GOING TO BE ABLE TO CONTINUE TO PROCESS BIPAP ORDER WITHOUT AN OVERNIGHT PULSE OXIMETRY TEST ON PT'S PRESCRIBED OXYGEN LITER FLOW. THE BIPAP ORDER WILL ALSO NEED TO INCLUDE BIPAP SETTINGS ON THE ORDER. FOR DISCHARGE FAX ORDER AND DISCHARGE INFORMATION TO [facility] OFFICE AT [phone], CALL AND NOTIFY [facility] OF DISCHARGE HOME AT [phone]. XIOMARA SHAH, CASE MANAGEMENT DCPIA - Discharge Planning Initial Assessment Updated by [id number]: Xiomara Shah on 08/26/18 12:50 pm * Is the patient Alert and Oriented? Yes * How many steps to enter\exit or inside your home? NONE * PCP DR. BRIAN DODD, [facility] IN [place] * [facility] [place] * Preadmission Environment Home with Family * ADLs Partial Dependent * Partial ADLs (Assistance needed) Bathing Medication Management * Equipment Bedside Commode CPAP Grab Bars Oxygen Walker Wheelchair * Other Equipment HOME AND PORTABLE OXYGEN - [facility], PREFERRED PROVIDER * List name and contact numbers for known caregivers / representatives who currently or will assist patient after discharge: EVERETT PAREDES, SPOUSE, * Verbal permission to speak to the caregivers and representatives has been obtained from the patient. N/A * Community resources currently utilized Home Health * Please name any agencies selected above. [facility] - NURSING AND PHYSICAL THERAPY * Additional services required to return to the preadmission environment? No * Can the patient safely return to the preadmission environment? Yes * Has this patient been hospitalized within the prior 30 days at any hospital? Yes Coverage Notice Reviewer: [id number] - Xiomara Shah Notice Issued Date-Time: 08/26/2018 11:30 Notice Type: Patient Choice Letter Notice Delivered To: Patient Relationship to Patient: Programmer Engineering And Scientific Name: Delivery Method: HAND - Hand Delivered Janina Days: Prior Verbal Notification: Recipient Understood Notice: Yes Recipient Signature: Yes Med Rec Note Co-signed by Attending: Coverage Notice Comment: -[employer] [place] [employer], [facility] MEDICAL SUPPLY OR ANY MEDICAL SUPPLY FOR TRILOGY MACHINE Last DP export: 08/27/18 2:15 p Patient Name: ANAHI PAREDES Page [phone] at 1710 All edits/amendments must be made on the electronic document DICTATION DATE: 08/27/181709 HEARING AID REPAIR TECHNICIAN: WAYNE 08/27/181709 RPT#: [id number] DC DATE: STATUS: ADM IN [facility] [address] [place] [address] END OF REPORT
--- NOTE | 2018-08-27 17:19 | NUR ---
I have reviewed this patient and I concur with the Shift Assessment completed by the Licensed Practical Nurse today this shift.
--- NOTE | 2018-08-27 19:30 | NUR ---
RESUMING PT CARE. PT IS ALERT LAYING IN BED. NO C/O VOCIED. NO S/S OF DISTRESS NOTED. BED IN LOW POSITION WITH CALL LIGHT IN REACH. SIDE RAILS UP X 2. WILL CONTINUE TO MONITOR PT AND FOLLOW PLAN OF CARE.
[2018-08-27 20:00] VITALS: BP 120/66
[2018-08-28] VITALS (7 sets, daily range): BP systolic 113–149; BP diastolic 64–84; Ht 170.2 cm; Wt 140.9 kg
[2018-08-28 06:28] LABS: BASOPHILS 0 % (0-2); EOSINOPHILS 0.5 % (0-7); HEMATOCRIT 29.7 % (36.0-48.0); HEMOGLOBIN 9.2 g/dL (12-16); IMMATURE GRANULOCYTES 0.5 % (0-5); LYMPHOCYTES 34.7 % (15-50); MCH 29.2 pg (26.0-34.0); MCV 94.3 fL (80.0-100.0); MEAN PLATELET VOLUME 10.7 fL (7.4-10.4); MONOCYTES 13.9 % (2-11); NEUTROPHILS 50.4 % (40-80); PLATELET COUNT 165 10x3/uL (130-400); RBC 3.15 10x6/uL (4.00-5.40); RDW 14.5 % (11.5-14.5); WBC 5.8 10x3/uL (4.8-10.8)
[2018-08-28 06:45] LABS: APTT 24.8 SECONDS (22.8-39.4); INR 1.07 (0.85-1.17); PROTIME 13.4 SECONDS (11.6-15.0)
[2018-08-28 06:54] LABS: ALKALINE PHOSPHATASE 40 U/L (46-116); ALT (SGPT) 34 U/L (10-68); BILIRUBIN - TOTAL 0.14 mg/dL (0.2-1.3); CALC OSMOLALITY 296 mosm/kg (275-300); CALCIUM 9.1 mg/dL (8.5-10.1); CARBON DIOXIDE 36.4 mmol/L (21.0-32.0); CHLORIDE - SERUM 104 mmol/L (98-107); CREATININE - SERUM 0.8 mg/dL (0.6-1.3); GLUCOSE 146 mg/dL (74-106); MAGNESIUM - SERUM 2.3 mg/dL (1.8-2.4); PROTEIN - SERUM 5.6 g/dL (6.4-8.2); SODIUM 144 mmol/L (136-145); UREA NITROGEN 33 mg/dL (7-18); eGFR NON AFRICAN AMERICAN 78 mL/min (90-120)
--- NOTE | 2018-08-28 07:10 | NUR ---
REPORT RECEIVED FROM COIN MACHINE SERVICE REPAIRER AND PAGTIENT CARE ASSUMED. PATIENT LAYING IN BED ON BACK WITH HOB ELEVATED [address] DE[address] BIPAP IN PL[address]. PATIENT HAS EYES CLOSED AND BREATHING EVENLY. PATIENT IS STABLE AND VSS. WILL CONTINUE WITH PLAN OF CARE. SR UP X 2 BED IN LOW POSITION AND CALL LIGHT IN REACH.
--- NOTE | 2018-08-28 07:57 | MORECARE ---
CASE MANAGEMENT DISCHARGE SUMMARY PATIENT: ANAHI PAREDES UNIT: [id number] ADM DATE: 08/24/18 AGE: 58 : 58 SEX: F ROOM/BED: D.210 AUTHOR: ROGELIO,DOC PHYSICIAN: REFERRING PHYSICIAN: LAWSON STONE MD DATE OF SERVICE: 08/28/18 Discharge Plan Patient Name: ANAHI PAREDES Facility: [facility]:[place] : 1960 Planned Disposition: Home with Home Health Anticipated Discharge Date: 08/31/18 Discharge Date: Expected LOS: 7 Initial Reviewer: [id number] Initial Review Date: 08/26/2018 Generated: 08/28/18 8:57 am Comments DCP- Discharge Planning Updated by [email or web address]: Xiomara Shah on 08/27/18 4:[address] Patient Name: ANAHI PAREDES Encounter No: [id number] : 1960 Primary Insurance: MEDICAID [place] Anticipated DC Date: 08-26-2018 Planned Disposition: Home with Home Health External Planned Provider: JESSE CERNA DCP follow-up note: [facility] PREVI[facility] INFORMED CM THAT THEY ARE NOT GOING TO BE ABLE TO CONTINUE TO PROCESS BIPAP ORDER WITHOUT AN OVERNIGHT PULSE OXIMETRY TEST ON PT'S PRESCRIBED OXYGEN LITER FLOW. THE BIPAP ORDER WILL ALSO NEED TO INCLUDE BIPAP SETTINGS ON THE ORDER. YANIRA SPOKE TO [facility], GARETH BELIVES THAT MEDICAID WILL PAY FOR A TRILOGY. YANIRA PROVIDED REFERRAL INFORMATION TO GARETH WHO WILL PROCESS ORDER AND INFORM CM IF MEDICAID WILL COVER A TRILOGY MACHINE. YANIRA WAITING GARETH FROM [facility] OFFICE TO DETERMINE IF TRILOGY WILL BE COVERED BY [place]. FOR DISCHARGE FAX ORDER AND DISCHARGE INFORMATION TO [facility] OFFICE AT [phone], CALL AND NOTIFY DENNYS OF DISCHARGE HOME AT [phone]. XIOMARA SHAH, CASE MANAGEMENT Appended by Xiomara Shah on 08/27/2018 17:00 CDT: YANIRA RECEIVED CALL FROM GAERTH FROM [facility] WHO INFORMED CM THAT TRILOGY WILL BE COVERED BY [place] MEDICA[place], SHE HAS CALLED [facility] AND SPOKE TO DR. KENNEDY NURSE AND REQUESTED PRIOR AUTHORIZATION FORM TO BE SIGNED. GARETH TO FAX ORDER FOR DR. SRINIVASAN TO SIGN FOR TRILOGY. CM NOTIFIED DR. SRINIVASAN. CM TO OBTAIN DOCTORS SIGNATURE FOR TRILOGY WHEN ORDER RECEIVED AND [facility] TO CONTINUE TRILOGY ORDER PROCESSING. FOR DISCHARGE FAX ORDER AND DISCHARGE INFORMATION TO [facility] [place] OFFICE AT [phone], CALL AND NOTIFY DENNYS OF DISCHARGE HOME AT [phone]. XIOMARA SHAH, CASE MANAGEMENT DCP- Discharge Planning Updated by [id number]: Xiomara Shah on 08/26/18 3:[address] Patient Name: ANAHI PAREDES Encounter No: [id number] : 1960 Primary Insurance: MEDICAID [facility] Date: 08-26-2018 Planned Disposition: Home with Home Health External Planned Provider: : [employer] [facility] [place] OFFICE DISCHARGE PLANNING NOTE: CM RECEIVED ORDER FOR TRILOGY, MET WITH PT IN ROOM TO DISCUSS DISCHARGE PLANNING AND NEEDS. PT REPORTS LIVING AT HOME INDEPENDENTLY WITH HER SPOUSE. PT HAS CPAP, BEDSIDE COMMODE, GRAB BARS, HOME AND PORTABLE OXYGEN, WALKER AND WHEELCHAIR FROM [employer] SUPPLY. PT HAS HOME HEALTH WITH [facility] OUT OF [place] FOR NURSING AND PHYSICAL THERAPY THAT SHE WANTS CONTINUED AT DISCHARGE. CM DISCUSSED AVAILABILITY OF HOME HEALTH, REHAB SERVICES AND MEDICAL EQUIPMENT. PT WANTS HOME HEALTH RESUMED AND WILL WEAR WHATEVER MACHINE THE DOCTOR FEELS NECESSARY. PT WOULD LIKE CM TO GET IT FROM [employer] AND IF THEY DON'T PROVIDE THE NEEDED EQUIPMENT, PT HAS NO PREFERENCE ON PROVIDER. CM GAVE PT PROVIDER LISTING FOR MEDICAL EQUIPMENT AND HOME HEALTH, PT SIGNED CONSENTS FOR [employer] AND [employer] / ANY MEDICAL EQUIPMENT PROVIDER. PT REPORTS HER SPOUSE WILL PICK HER UP FOR DISCHARGE HOME. CM CALLED [employer], , ADVISED BY JADA VASQUEZ THEY DO NOT DO TRILOGY MACHINE AND REFERRED PT TO [facility]. CM CALLED [facility], SPOKE TO STANISLAV, PROVIDED REFERRAL INFORMATION, WAS ADVISED PT'S INSURANCE WILL NOT PAY FOR TRILOGY AND MAY PROVIDE BIPAP. CM SPOKE TO DR. SRINIVASAN WHO PROVIDED ORDER FOR BIPAP MACHINE. CM CALLED [facility], , DISCUSSED REFERRAL WITH STANISLAV, FAXED REFERRAL TO [facility] AT [phone]. CM CALLED [facility] OFFICE, , SPOKE TO OSMAR WHO REPORTS PT IS ACTIVE WITH THEM ALREADY. CM FAXED REFERRAL TO [facility] AT [phone]. FOR DISCHARGE FAX ORDER AND DISCHARGE INFORMATION TO [facility] AT [phone], CALL AND NOTIFY [facility] OF DISCHARGE HOME AT [phone]. [facility] WILL PROCESS ORDER AND CHECK WITH PT'S INSURANCE TO DETERMINE IF PT'S INSURANCE WILL PROVIDE THE ORDERED BIPAP. Xiomara Shah, CASE MANAGEMENT Appended by Xiomara Shah on 08/26/2018 16:28 CDT: CM RECEIVED CALL FROM JOANN OF [facility] WHO INFORMED CM THAT THEY ARE NOT GOING TO BE ABLE TO CONTINUE TO PROCESS BIPAP ORDER WITHOUT AN OVERNIGHT PULSE OXIMETRY TEST ON PT'S PRESCRIBED OXYGEN LITER FLOW. THE BIPAP ORDER WILL ALSO NEED TO INCLUDE BIPAP SETTINGS ON THE ORDER. FOR DISCHARGE FAX ORDER AND DISCHARGE INFORMATION TO [facility] AT [phone], CALL AND NOTIFY [facility] OF DISCHARGE HOME AT [phone]. XIOMARA SHAH, CASE MANAGEMENT DCPIA - Discharge Planning Initial Assessment Updated by [id number]: Xiomara Shah on 08/26/18 12:50 pm * Is the patient Alert and Oriented? Yes * How many steps to enter\exit or inside your home? NONE * PCP DR. BRIAN DODD, [employer] [facility] IN [place] * [facility] IN [place] * Preadmission Environment Home with Family * ADLs Partial Dependent * Partial ADLs (Assistance needed) Bathing Medication Management * Equipment Bedside Commode CPAP Grab Bars Oxygen Walker Wheelchair * Other Equipment HOME AND PORTABLE OXYGEN - [facility], PREFERRED PROVIDER * List name and contact numbers for known caregivers / representatives who currently or will assist patient after discharge: EVERETT PAREDES, SPOUSE, * Verbal permission to speak to the caregivers and representatives has been obtained from the patient. N/A * Community resources currently utilized Home Health * Please name any agencies selected above. [facility] - NURSING AND PHYSICAL THERAPY * Additional services required to return to the preadmission environment? No * Can the patient safely return to the preadmission environment? Yes * Has this patient been hospitalized within the prior 30 days at any hospital? Yes Coverage Notice Reviewer: [id number] - Xiomara Shah Notice Issued Date-Time: 08/26/2018 11:30 Notice Type: Patient Choice Letter Notice Delivered To: Patient Relationship to Patient: Corporate Development Analyst Name: Delivery Method: HAND - Hand Delivered Janina Days: Prior Verbal Notification: Recipient Understood Notice: Yes Recipient Signature: Yes Med Rec Note Co-signed by Attending: Coverage Notice Comment: -[email or web address], [facility] MEDICAL SUPPLY OR ANY MEDICAL SUPPLY FOR TRILOGY MACHINE Last DP export: 08/27/18 4:10 p Patient Name: ANAHI PAREDES Page [id number] at 0757 All edits/amendments must be made on the electronic document DICTATION DATE: 08/28/18756 STENCILING MACHINE TENDER: WAYNE 08/28/18756 RPT#: [id number] DC DATE: STATUS: ADM IN [facility] [address] [place] [address] END OF REPORT
--- NOTE | 2018-08-28 09:00 | NUR ---
PATIENT IS STABLE AND VSS. PATIENT TO IR VIA HOPSITAL BED AND IR STAFF FOR LUNG BIOPSY.
--- NOTE | 2018-08-28 11:10 | NUR ---
PATIENT RETURNED TO ROOM VIA HOPTAL BED AND HOSPITAL STAFF. PATIENT IS AWAKE AND ALERT. PATIENT IS STABLE AND VSS. DRSG TO THORACIC BACK C/D/I. PER DR SRINIVASAN, PATIENT IS TO REMAIN NPO AND NO BIPAP UNTIL TOMORROW AM. WILL CONTINUE TO MONITOR.
--- NOTE | 2018-08-28 14:00 | NUR ---
PER CINTHIA ADHIKARI RECEIVED PHONE CALL FROM [facility] AND PATIENT IS STOOL C-DIFF POSITIVE AND TO BE PLACED ON ENTERIC PRECAUTIONS. ENGTERIC PRECAUTIONS PLACED.
--- NOTE | 2018-08-28 14:14 | NUR ---
Nutrition follow-up: Pt NPO for lung biopsy today PO intaked has been 100% of most meals Labs reviewed wt: 154# +BM RDN following.
--- NOTE | 2018-08-28 18:05 | NUR ---
PATIENT SITTING UP BED EATING SUPPER. PATIENT IS STABLE AND VSS. PATIENT DENIES ANY NEEDS OR PAIN. WILL CONTINUE TO MONITOR. SR UP X 2 BED IN LOW POSTION AND CALL LIGHT IN REACH.
--- NOTE | 2018-08-28 19:08 | NUR ---
RECIEVED UP IN BED WITH EYES OPEN AND TV ON. ALERT AND ORIENTED X4. UP WITH ASSIST X2. PT IS TO BE BEDFAST TODAY PER MD. REMIANS IN ISOLATIONS R/T C-DIFF. TELEMETRY IN PLACE. PT HAD LUNG BIOPSEY TODAY. IV TO RIGHT THUMB SL.. DENIES ANY NEEDS AT THIS TIME.
[2018-08-29] VITALS: BP 102/52
[2018-08-29 04:00] VITALS: BP 117/71
[2018-08-29 04:30] LABS: BASOPHILS 0 % (0-2); EOSINOPHILS 0 % (0-7); HEMATOCRIT 31.5 % (36.0-48.0); HEMOGLOBIN 9.8 g/dL (12-16); IMMATURE GRANULOCYTES 0.5 % (0-5); LYMPHOCYTES 15.8 % (15-50); MCH 29.5 pg (26.0-34.0); MCHC 31.1 g/dL (31.0-37.0); MCV 94.9 fL (80.0-100.0); MEAN PLATELET VOLUME 11.4 fL (7.4-10.4); MONOCYTES 6.4 % (2-11); NEUTROPHILS 77.3 % (40-80); PLATELET COUNT 137 10x3/uL (130-400); RBC 3.32 10x6/uL (4.00-5.40); RDW 14.3 % (11.5-14.5); WBC 6.1 10x3/uL (4.8-10.8)
[2018-08-29 04:44] LABS: ALBUMIN 3.1 g/dL (3.4-5.0); ALKALINE PHOSPHATASE 48 U/L (46-116); ALT (SGPT) 34 U/L (10-68); BILIRUBIN - TOTAL 0.11 mg/dL (0.2-1.3); CALCIUM 9.2 mg/dL (8.5-10.1); CARBON DIOXIDE 33.5 mmol/L (21.0-32.0); CHLORIDE - SERUM 100 mmol/L (98-107); CREATININE - SERUM 0.7 mg/dL (0.6-1.3); MAGNESIUM - SERUM 2.2 mg/dL (1.8-2.4); PROTEIN - SERUM 5.6 g/dL (6.4-8.2); SODIUM 138 mmol/L (136-145); eGFR NON AFRICAN AMERICAN > 90 mL/min (90-120)
[2018-08-29 04:46] LABS: CALC OSMOLALITY 286 mosm/kg (275-300); GLUCOSE 269 mg/dL (74-106); POTASSIUM - SERUM 4.8 mmol/L (3.5-5.1); UREA NITROGEN 19 mg/dL (7-18)
--- NOTE | 2018-08-29 07:00 | NUR ---
RECEIVED REPORT. ASSUMED CARE OF PATIENT. CALL LIGHT WITHIN REACH. IV FLUIDS INFUSING AT KVO RATE TO RIGHT THUMB. NO DISTRESS. RECEIVING BREATHING TX AT THIS TIME.
[2018-08-29 08:54] VITALS: BP 100/62
--- NOTE | 2018-08-29 09:59 | NUR ---
MEDICATED FOR PAIN AT THIS TIME. NO DISTRESS.
[2018-08-29 11:41] VITALS: BP 110/68
--- NOTE | 2018-08-29 11:42 | NUR ---
FSBS 127. NO INSULIN PER SLIDING SCALE.
--- NOTE | 2018-08-29 11:52 | NUR ---
PATIENT UPSET THAT DID NOT ORDER ANY OTHER PAIN MEDICATION, PATIENT STATES HE TOLD HER HE WOULD. PATIENT ABLE TO RECIEVED NORCO 5, 2 TABS EVERY 4 FOR PAIN AND SHE STATES IT IS NOT DOING ANYTHING FOR HER PAIN. PATIENT RESTING IN BED. NO DISTRESS.
--- NOTE | 2018-08-29 13:14 | NUR ---
SPOKE WITH HOWIE NICHELLE IS GONE FOR THE DAY AND INFORMED HER THAT TOLD PATIENT THAT HE WOULD GET HER PAIN MEDICATION AND THEN INFORMED THIS NURSE HE WOULD NOT PRESCRIBE PAIN MEDICATION, IT WOULD HAVE TO COME FROM PRIMARY. PAIN IS SUBJECTIVE, HOWEVER, NO GAURDING, GRIMACING, ELEVATED PULSE, BP, REDUCED ACTIVITY OR APPETITE IS NOTED FROM PATIENT. PATIENT UPSET THAT HER IV TORADOL HAS COMPLETED ITS COURSE. HOWIE WILL LOOK AT PATIENT RECORD. PATIENT ONLY TAKES NORCO 5, 2 TABS AT HOME.
--- NOTE | 2018-08-29 14:23 | NUR ---
MEDICATED FOR PAIN. PATIENT COMPLAINING AGAIN OF IV HURTING AND SHE WANTS IT RESITED. THIS MEDICATION COORDINATOR SENT A NURSE IN 2 HOURS AGO TO RESITE IV AND PATIENT REFUSED TO HAVE IT RESITED! PATIENT TURNED AWAY A GOOD IV START NURSE AND WOULD NOT GIVE THIS MEDICATION COORDINATOR A REASON. PATIENT IS EXHIBITING ATTENTION SEEKING BEHAVIORS.
--- NOTE | 2018-08-29 15:40 | NUR ---
AT BEDSIDE FOR ROUNDS AND DISCUSSED PAIN MEDICATION WITH PATIENT. PATIENT STATED SHE CAN BARELY MOVE THE PAIN IS SO BAD HOWEVER PATIENT WAS CAUGHT OUT OF BED TAKING HERSELF TO THE RESTROOM AND IS ABLE TO LIFT HER SELF OFF THE BED TO SIT ON AND OFF BEDPAN, HAVE BED PAD CHANGED UNDER NEATH HER, AND SCOOT HERSELF UP IN BED. UNAWARE OF THIS PATIENTS ACTIVITY.
--- NOTE | 2018-08-29 15:50 | NUR ---
22 GAUGE IV PLACED TO RIGHT BREAST X 1 STICK. GOOD BLOOD RETURN, EASY FLUSH. TOLERATED IV PLACEMENT WELL. TAPED,DATED, AND SECURED. PATIENT VERY EDEMATOUS, SEVERE BRUISES TO BILATERAL ARMS FROM VEINS BLOWING. THIS WAS THE BEST VEIN ACCESSIBLE FOR IV ACCESS. 22 IV REMOVED FROM RIGHT THUMB DUE TO INFILTRATED. NO BLEEDING FROM SITE. 2X2 GAUZE APPLIED AND SECURED WITH TAPE. CATHETER TIP INTACT.
[2018-08-29 16:41] VITALS: BP 108/63
--- NOTE | 2018-08-29 17:40 | NUR ---
PATIENT ANXIOUSLY CALLING LIFE SCIENCE TECHNICAL OFFICER LIGHT FOR PAIN MEDICATION THAT TOLD HER HE WOULD ORDER. NO MEDICATIONS ENTERED AT THIS TIME.
[2018-08-29 20:00] VITALS: BP 125/78
--- NOTE | 2018-08-29 21:41 | NUR ---
INITIAL ROUNDS COMPLETED AT 1910 HRS. PT DEMANDNG PAIN MEDS. NO DISTRESS NOTED. NORCO 5/325 X2 PO GIVEN AT 1937. PT ASKED WHY THE DOCTOR DIDN'T ORDER HER SOME DILAUDID IV. INFORMED PT NOTHING IN NOTES ABOUT DILAUDID AND TO ASK MD WHEN HE ROUNDS IN AM. IV TO R BREAST SL PE PT'S INSISTANCE.O2 3LNC. ST PER CM HR 104. BRUISES NOTED TO BILAT ARMS. LUNGS DIMINISHED IN BASES. ABD SOFT WITH ACTIVE BS NOTED. DRESSING TO L LOWER BACK DRY AND INTACT. PM FSBS 149. NO COVERGE NEEDED. PM SNACK SERVED AN PM MEDS GIVEN. PT CURRENTLY WATCHING TV. NO DISTRESS NOTED. SR UP X2, CALL LIGHT WITHIN REACH.
[2018-08-30] VITALS: BP 94/60
--- NOTE | 2018-08-30 00:01 | NUR ---
NORCO 5/325 X2 PO GIVEN FOR C/O CHRONIC BACKPAIN. SR UP X2, CALL LIGHT WITHIN REACH.
--- NOTE | 2018-08-30 02:09 | NUR ---
PT RESTING WITH EYES CLOSED. RESP EVEN AND REGULAR. SR UP X2, CALL LIGHT WITHIN REACH.
[2018-08-30 04:00] VITALS: BP 124/76
--- NOTE | 2018-08-30 04:07 | NUR ---
PT RESTING WITH EYES CLOSED. RESP EVEN AND REGULAR. SR UP X2, CALL LIGHT WITHIN REACH.
--- NOTE | 2018-08-30 06:34 | NUR ---
VSS THROUGHOUT NIGHT. SR /ST PER CM. PT STATED NORCO NOT CONTROLLING BACK/INCISIONAL PAIN. SR UP X2, CALL LIGHT WITHIN REACH.
--- NOTE | 2018-08-30 07:30 | NUR ---
REPORT RECIEVED AND MORNING ROUNDING COMPLETE. PT LAYING IN BED, IN HIGH FOWLERS, PT UPSET BECAUSE SHE IS WORRIED ABOUT TAKING TO MUCH TYLENOL. PT STATES SHE WILL TALK TO THE DOCTOR WHEN HE MAKES HIS ROUNDS ABOUT PAIN MANAGEMENT. PT HAS NO OTHER NEEDS AT THIS TIME CALL LIGHT WITHIN REACH. BED IN LOWEST POSITION.
[2018-08-30 07:57] VITALS: BP 94/55
--- NOTE | 2018-08-30 09:00 | NUR ---
DR. KNUTSON STATES THAT PT CAN AND SHOULD GET UP AND USE THE BSC. MOVING IS GOOD FOR HER. SHE SHOULD OM=NLY GET UP AND WALK WITH PHYSICAL THERAPY AT THIS TIME DUE TO DESTATING O2.
[2018-08-30 11:57] VITALS: BP 104/67
--- NOTE | 2018-08-30 15:21 | NUR ---
I have reviewed this patient and I concur with the Shift Assessment completed by the Licensed Practical Nurse today this shift.
[2018-08-30 15:57] VITALS: BP 109/75
--- NOTE | 2018-08-30 17:12 | NUR ---
PT IS LAYING IN BED IN HIGH FOWLERS. STATES SHE WOULD LIKE AN EGG CRATE FOR HER BED. PT IS ALSO WANTING TO GO HOME AT THIS POINT SHE DOSENT FEEL TYHO SHE IS GETTING ANY BETTER. NO WORSE BUT NOT ANY BETTER EITHER.
--- NOTE | 2018-08-30 20:14 | NUR ---
INITIAL ROUNDS COMPLETED AT 1910 HRS. RTTX INPROGRESS. ASSESSMENT COMPLETED AT 1925 HRS. VSS. SR PER CM HR95. IV TO R BREAST SL. LUNGS VERY DIMINISHED IN BASES BILAT. BRUISES NOTED TO BILAT ARMS. ALERT AND ORIENTED. ASSISTED TO BSC. GAIT STIFF. VOIDED 300CC OF YELLOW URINE. ASSSITED BACK TO BED. PT COB WITH EXERTION. STATES PULLED BACK EARLIER IN THE DAY AND STATES BACK PAIN /. DRESSING TO L LOWER BACK CLEAN AND DRY. DILAUDID 1MG SIVP GIVEN FOR C/O SEVERE BACK PAIN. WILL CONTINUE TO MONITOR. SR UP X2, CALL LIGHT WITHIN REACH.
[2018-08-30 20:35] VITALS: BP 134/88
--- NOTE | 2018-08-30 21:30 | NUR ---
PM FSBS 262. 6 UNITS REG INSULIN GIVEN SUB-Q TO UPPER R ARM. PM MEDS GIVEN. WILL CONTINUE TO MONITOR. CALL LIGHT WITHIN REACH.
--- NOTE | 2018-08-31 00:29 | NUR ---
NORCO 10/325 PO GIVEN FOR C/O BACK PAIN. VOIDED 250CC OF YELLOW URINE VIA BEDPAN. PT STATED IT HURT TOO MUCH TO USE BSC. SR UP X2, CALL LIGHT WITHIN REACH.
[2018-08-31 01:13] VITALS: BP 105/73
--- NOTE | 2018-08-31 02:59 | NUR ---
PT WATCHING TV. NO DISTRESS NOTED. CALL LIGHT WITHIN REACH.
[2018-08-31 04:27] LABS: BASOPHILS 0.1 % (0-2); EOSINOPHILS 0.2 % (0-7); HEMATOCRIT 32.7 % (36.0-48.0); HEMOGLOBIN 10.4 g/dL (12-16); IMMATURE GRANULOCYTES 0.7 % (0-5); LYMPHOCYTES 15.5 % (15-50); MCH 29.7 pg (26.0-34.0); MCHC 31.8 g/dL (31.0-37.0); MCV 93.4 fL (80.0-100.0); MEAN PLATELET VOLUME 10.6 fL (7.4-10.4); MONOCYTES 10.2 % (2-11); NEUTROPHILS 73.3 % (40-80); RDW 14.1 % (11.5-14.5); WBC 10.9 10x3/uL (4.8-10.8)
[2018-08-31 04:33] LABS: PLATELET COUNT 172 10x3/uL (130-400)
[2018-08-31 04:39] LABS: CALC OSMOLALITY 280 mosm/kg (275-300); CALCIUM 9.5 mg/dL (8.5-10.1); CARBON DIOXIDE 37.3 mmol/L (21.0-32.0); CHLORIDE - SERUM 97 mmol/L (98-107); CREATININE - SERUM 0.7 mg/dL (0.6-1.3); POTASSIUM - SERUM 4.2 mmol/L (3.5-5.1); SODIUM 137 mmol/L (136-145); UREA NITROGEN 23 mg/dL (7-18); eGFR NON AFRICAN AMERICAN > 90 mL/min (90-120)
[2018-08-31 04:40] LABS: GLUCOSE 156 mg/dL (74-106)
--- NOTE | 2018-08-31 04:48 | NUR ---
DILAUDID 1MG SIVP GIVEN FOR C/O SEVERE BACK PAIN. CALL LIGHT WITHIN REACH.
[2018-08-31 05:26] VITALS: BP 113/71
--- NOTE | 2018-08-31 06:28 | NUR ---
AM FSBS 156. PT REFUSED AM INSULIN. VSS. REQUESTING DILAUDID. INFORMED NOT TIME YET. NEEDS MET; WILL CONTINUE TO MONITOR.
--- NOTE | 2018-08-31 07:15 | NUR ---
ASSESMENT DONE. DENIES NEEDS.
[2018-08-31 08:16] VITALS: BP 107/50
--- NOTE | 2018-08-31 10:03 | NUR ---
I have reviewed this patient and I concur with the Shift Assessment completed by the Licensed Practical Nurse today this shift.
[2018-08-31 11:36] VITALS: BP 121/68
[2018-08-31 15:40] VITALS: BP 106/76
--- NOTE | 2018-08-31 17:20 | NUR ---
WITHOUT CHANGES OR DISTRESS NOTED AT THIS TIME. DENIES NEEDS
--- NOTE | 2018-08-31 19:41 | NUR ---
ASSIST PT FROM BEDSIDE COMODE TO BED. PT STATES SHE WANT THE TRILOGY OFF AND AND SHE WANTS HER NC. PLACED PT ON NC. STILL PT DOES NOT FEEL CONTEMPTED WITH IT. STATES SHE DOES NOT FEEL SHE IS BREATHING GOOD. O2SAT AT THIS TIME IS 89. EDUCATE PT ON TAKING DEEP BREATHS, BUT PT WAS STILL COMPLAINING. CALLED RT. RT EDUCATE PT ON THE NEED TO KEEP HER TRILOGY MASK ON. PT CURRENTLY LAYING IN BED O2SAT @ 90. WILL CTM.
[2018-08-31 20:00] VITALS: BP 117/73
--- NOTE | 2018-08-31 20:40 | NUR ---
RECIEVED REPORT FROM OUTGOING SHIFT THAT PT IV INFILTRATED. RESITED A NEW PIV ON 22G X1 STICK ON LEFT CHEST. PT TOLERATES WELL. PT DENIES ANY FURTHER NEEDS AT THIS TIME. WILL CTM. CL IN REACH, BED IN LOW, SR UP X2.
[2018-09-01] VITALS: BP 113/68
[2018-09-01 04:00] VITALS: BP 100/59
[2018-09-01 05:25] LABS: BASOPHILS 0 % (0-2); EOSINOPHILS 0.1 % (0-7); IMMATURE GRANULOCYTES 0.8 % (0-5); MCH 29.2 pg (26.0-34.0); MCHC 31.3 g/dL (31.0-37.0); MCV 93.3 fL (80.0-100.0); MEAN PLATELET VOLUME 10.6 fL (7.4-10.4); MONOCYTES 8.7 % (2-11); NEUTROPHILS 72.4 % (40-80); PLATELET COUNT 162 10x3/uL (130-400); RBC 3.43 10x6/uL (4.00-5.40); RDW 14.3 % (11.5-14.5)
[2018-09-01 05:33] LABS: WBC 7.3 10x3/uL (4.8-10.8)
[2018-09-01 05:35] LABS: CALC OSMOLALITY 288 mosm/kg (275-300); CALCIUM 9.1 mg/dL (8.5-10.1); CARBON DIOXIDE 36.9 mmol/L (21.0-32.0); CHLORIDE - SERUM 100 mmol/L (98-107); CREATININE - SERUM 0.7 mg/dL (0.6-1.3); GLUCOSE 172 mg/dL (74-106); POTASSIUM - SERUM 4.3 mmol/L (3.5-5.1); SODIUM 140 mmol/L (136-145); eGFR NON AFRICAN AMERICAN > 90 mL/min (90-120)
[2018-09-01 05:44] LABS: UREA NITROGEN 30 mg/dL (7-18)
[2018-09-01 08:08] VITALS: BP 105/74
--- NOTE | 2018-09-01 09:18 | NUR ---
ASSISTED PT TO BEDSIDE COMMODE AND THEN TO CHAIR. AM MEDICATIONS GIVEN ORDERED. PT TOLERATED WELL. DENIES ANY FURTHER NEEDS AT THIS TIME. CALL LIGHT WITHIN REACH, WILL CONT TO FOLLOW POC
[2018-09-01 11:41] VITALS: BP 116/70
--- NOTE | 2018-09-01 12:27 | NUR ---
Nutrition follow-up: Diet: ADA PO Intake 100% of most meals Labs reviewed RDN following.
[2018-09-01] MEDS ORDERED: FLAGYL500 MG PO (14:12)
--- NOTE | 2018-09-01 14:28 | NUR ---
PIV TO PT LEFT CHEST INFILTRATED, PIV REMOVED WITH CATHETER TIP INTACT. TELEMETRY REMOVED AND GIVEN TO INSULATION APPLICATOR. ASSISTED PT INTO PJS AND BACK TO BED.
--- NOTE | 2018-09-01 15:35 | NUR ---
DISCHARGE INSTRUCTIONS REVIEWED WITH PT AND ALL QUESTIONS ANSWERED. CALLED IDENTIFICATION CLERK FOR WHEELCHAIR
--- NOTE | 2018-09-01 16:45 | NUR ---
PT LEFT WITH SPOUSE VIA WHEELCHAIR
--- NOTE | 2018-09-02 07:41 | MORECARE ---
CASE MANAGEMENT DISCHARGE SUMMARY PATIENT: ANAHI PAREDES UNIT: [id number] ADM DATE: 08/24/18 AGE: 58 : 58 SEX: F ROOM/BED: D.2107 AUTHOR: ROGELIO,DOC PHYSICIAN: REFERRING PHYSICIAN: LAWSON STONE MD DATE OF SERVICE: 09/02/18 Discharge Plan Patient Name: ANAHI PAREDES Facility: [facility]:[place] : 1960 Planned Disposition: Home with Home Health Anticipated Discharge Date: 09/01/18 Discharge Date: 09/01/2018 Expected LOS: 8 Initial Reviewer: [id number] Initial Review Date: 08/26/2018 Generated: 09/02/18 8:41 am Comments DCP- Discharge Planning Updated by [id number]: Xiomara Shah on 09/02/18 6:[address] Patient Name: ANAHI PAREDES Encounter No: [id number] : 1960 Primary Insurance: MEDICAID [place] Anticipated DC Date: 09-01-2018 Planned Disposition: Home with Home Health External Planned Provider: [facility] [place] DC follow-up note: CM CONFIRMED TRILOGY IN ROOM PRIOR TO DISCHARGE, PROVIDED PT WITH REPLACED BY [facility] PHONE NUMBER FOR SERVICE OF TRILOGY IF NEEDED. PT'S SPOUSE TRANSPORTED HOME. YANIRA FAXED DISCHARGE INFORMATION TO [facility] OFFICE AT [phone], CALLED AND NOTIFIED [facility] OF DISCHARGE HOME AT [phone]. ARNOLDO DUNCAN DCP- Discharge Planning Updated by [id number]: Xiomara Shah on 08/27/18 4:[address] Patient Name: ANAHI PAREDES Encounter No: [id number] : 1960 Primary Insurance: MEDICAID [place] Anticipated DC Date: 08-26-2018 Planned Disposition: Home with Home Health External Planned Provider: [facility] follow-up note: JOANN WINSLOW [facility] [place] PREVIOUSLY INFORMED CM THAT THEY ARE NOT GOING TO BE ABLE TO CONTINUE TO PROCESS BIPAP ORDER WITHOUT AN OVERNIGHT PULSE OXIMETRY TEST ON PT'S PRESCRIBED OXYGEN LITER FLOW. THE BIPAP ORDER WILL ALSO NEED TO INCLUDE BIPAP SETTINGS ON THE ORDER. CM SPOKE TO GARETH [facility], GARETH BELIVES THAT MEDICAID WILL PAY FOR A TRILOGY. CM PROVIDED REFERRAL INFORMATION TO GARETH WHO WILL PROCESS ORDER AND INFORM CM IF MEDICAID WILL COVER A TRILOGY MACHINE. CM WAITING GARETH FROM REPLACED BY [facility] OFFICE TO DETERMINE IF TRILOGY WILL BE COVERED BY [place] MEDICAID. FOR DISCHARGE FAX ORDER AND DISCHARGE INFORMATION TO [facility] [place] OFFICE AT [phone], CALL AND NOTIFY [facility] OF DISCHARGE HOME AT [phone]. XIOMARA SHAH, CASE MANAGEMENT Appended by Xiomara Shah on 08/27/2018 17:00 CDT: CM RECEIVED CALL FROM GARETH FROM REPLACED BY [facility] OFFICE WHO INFORMED CM THAT TRILOGY WILL BE COVERED BY [place] MEDICAID, SHE HAS CALLED [email or web address] AND SPOKE TO DR. KENNEDY NURSE AND REQUESTED PRIOR AUTHORIZATION FORM TO BE SIGNED. GARETH TO FAX ORDER FOR DR. SRINIVASAN TO SIGN FOR TRILOGY. CM NOTIFIED DR. SRINIVASAN. CM TO OBTAIN [facility]CTORS SIGNATURE FOR TRILOGY WHEN ORDER RECEIVED AND FAX BACK TO [facility] OFFICE TO CONTINUE TRILOGY ORDER PROCESSING. FOR DISCHARGE FAX ORDER AND DISCHARGE INFORMATION TO [facility] [place] OFFICE AT [phone], CALL AND NOTIFY [facility] OF DISCHARGE HOME AT [phone]. XIOMARA SHAH, CASE MANAGEMENT DCP- Discharge Planning Updated by [id number]: Xiomara Shah on 08/26/18 3:[address] Patient Name: ANAHI PAREDES Encounter No: [id number] : 1960 Primary Insurance: [place]ID [place] Anticipated DC Date: 08-26-2018 Planned Disposition: Home with Home Health External Planned Provider: : [facility] [place] OFFICE DISCHARGE PLANNING NOTE: CM RECEIVED ORDER FOR TRILOGY, MET WITH PT IN ROOM TO DISCUSS DISCHARGE PLANNING AND NEEDS. PT REPORTS LIVING AT HOME INDEPENDENTLY WITH HER SPOUSE. PT HAS CPAP, BEDSIDE COMMODE, GRAB BARS, HOME AND PORTABLE OXYGEN, WALKER AND WHEELCHAIR FROM [employer]. PT HAS HOME HEALTH WITH [facility] OUT OF [place] FOR NURSING AND PHYSICAL THERAPY THAT SHE WANTS CONTINUED AT DISCHARGE. CM DISCUSSED AVAILABILITY OF HOME HEALTH, REHAB SERVICES AND MEDICAL EQUIPMENT. PT WANTS HOME HEALTH RESUMED AND WILL WEAR WHATEVER MACHINE THE DOCTOR FEELS NECESSARY. PT WOULD LIKE CM TO GET [facility] FROM [facility] AND IF THEY DON'T PROVIDE THE NEEDED EQUIPMENT, PT HAS NO PREFERENCE ON PROVIDER. CM GAVE PT PROVIDER LISTING FOR MEDICAL EQUIPMENT AND HOME HEALTH, PT SIGNED CONSENTS FOR [facility] AND [facility] / ANY MEDICAL EQUIPMENT PROVIDER. PT REPORTS HER SPOUSE WILL PICK HER UP FOR DISCHARGE HOME. [facility], , ADVISED BY JADA VASQUEZ THEY DO NOT DO TRILOGY MACHINE AND REFERRED PT TO [facility]. CM CALLED [facility] [place], SPOKE TO STANISLAV, PROVIDED REFERRAL INFORMATION, WAS ADVISED PT'S INSURANCE WILL NOT PAY FOR TRILOGY AND MAY PROVIDE BIPAP. CM SPOKE TO DR. SRINIVASAN WHO PROVIDED ORDER FOR BIPAP MACHINE. CM CALLED [facility], , DISCUSSED REFERRAL WITH STANISLAV, FAXED REFERRAL TO [facility] AT [phone]. CM CALLED [facility] [place] OFFICE, , SPOKE TO OSMAR WHO REPORTS PT IS ACTIVE WITH THEM ALREADY. CM FAXED REFERRAL TO [facility] AT [phone]. FOR DISCHARGE FAX ORDER AND DISCHARGE INFORMATION TO [facility] OFFICE AT [phone], CALL AND NOTIFY [facility] OF DISCHARGE HOME AT [phone]. [facility] WILL PROCESS ORDER AND CHECK WITH PT'S INSURANCE TO DETERMINE IF PT'S INSURANCE WILL PROVIDE THE ORDERED BIPAP. Xiomara Shah, CASE MANAGEMENT Appended by Xiomara Shah on 08/26/2018 16:28 CDT: CM RECEIVED CALL FROM JOANN OF [facility] WHO INFORMED CM THAT THEY ARE NOT GOING TO BE ABLE TO CONTINUE TO PROCESS BIPAP ORDER WITHOUT AN OVERNIGHT PULSE OXIMETRY TEST ON PT'S PRESCRIBED OXYGEN LITER FLOW. THE BIPAP ORDER WILL ALSO NEED TO INCLUDE BIPAP SETTINGS ON THE ORDER. FOR DISCHARGE FAX ORDER AND DISCHARGE INFORMATION TO [facility] OFFICE AT [phone], CALL AND NOTIFY [facility] OF DISCHARGE HOME AT [phone]. XIOMARA SHAH, CASE MANAGEMENT DCPIA - Discharge Planning Initial Assessment Updated by [id number]: Xiomara Shah on 08/26/18 12:50 pm * Is the patient Alert and Oriented? Yes * How many steps to enter\exit or inside your home? NONE * PCP DR. RBIAN DODD, [facility] IN [place] * Pharmacy [facility] IN [place] * Preadmission Environment Home with Family * ADLs Partial Dependent * Partial ADLs (Assistance needed) Bathing Medication Management * Equipment Bedside Commode CPAP Grab Bars Oxygen Walker Wheelchair * Other Equipment HOME AND PORTABLE OXYGEN - [facility], PREFERRED PROVIDER * List name and contact numbers for known caregivers / representatives who currently or will assist patient after discharge: EVERETT PAREDES, SPOUSE, * Verbal permission to speak to the caregivers and representatives has been obtained from the patient. N/A * Community resources currently utilized Home Health * Please name any agencies selected above. [facility] [place] - NURSING AND PHYSICAL THERAPY * Additional services required to return to the preadmission environment? No * Can the patient safely return to the preadmission environment? Yes * Has this patient been hospitalized within the prior 30 days at any hospital? Yes Coverage Notice Reviewer: [id number] Eloina Shah Notice Issued Date-Time: 08/26/2018 11:30 Notice Type: Patient Choice Letter Notice Delivered To: Patient Relationship to Patient: Order Dispatcher Name: Delivery Method: HAND - Hand Delivered Janina Days: Prior Verbal Notification: Recipient Understood Notice: Yes Recipient Signature: Yes Med Rec Note Co-signed by Attending: Coverage Notice Comment: -[facility] [place] [facility] OR ANY MEDICAL SUPPLY FOR TRILOGY MACHINE Last DP export: 08/28/18 6:57 a Patient Name: ANAHI PAREDES Page [phone] at 0741 All edits/amendments must be made on the electronic document DICTATION DATE: 09/02/18739 VOLUNTEER SERVICES MANAGER: WAYNE 09/02/18739 RPT#: [id number] DC DATE:09/01/18 STATUS: DIS IN [facility] [address] [place] [address] END OF REPORT
== END 2018-09-01 16:46 | disposition home health service (06) | DRG 193 ==
LOC: D.ER 21:09 → OBSVTIME 21:44 → D.M2 21:44
PROVIDERS: Family Medicine; Internal Medicine Pulmonary Disease; Radiology Vascular & Interventional Radiology; ADMIT Internal Medicine Nephrology; ATTEND Internal Medicine Nephrology
PROC: 5A09457 Assistance with Respiratory Ventilation, 24-96 Consecutive Hours, Continuous Positive Airway Pressure (ICD-10-PCS; principal; 2018-08-24)
PROC: 0BBJ3ZX Excision of Left Lower Lung Lobe, Percutaneous Approach, Diagnostic (ICD-10-PCS; 2018-08-28)
DX: J18.9 Pneumonia, unspecified organism (principal); J96.21 Acute and chronic respiratory failure with hypoxia; I50.23 Acute on chronic systolic (congestive) heart failure; J44.1 Chronic obstructive pulmonary disease with (acute) exacerbation; A04.72 Enterocolitis due to Clostridium difficile, not specified as recurrent; J93.9 Pneumothorax, unspecified; J98.11 Atelectasis; R91.8 Other nonspecific abnormal finding of lung field; I11.0 Hypertensive heart disease with heart failure; G40.909 Epilepsy, unspecified, not intractable, without status epilepticus; E09.9 Drug or chemical induced diabetes mellitus without complications; T38.0X5A Adverse effect of glucocorticoids and synthetic analogues, initial encounter; F31.9 Bipolar disorder, unspecified; B19.20 Unspecified viral hepatitis C without hepatic coma; K21.9 Gastro-esophageal reflux disease without esophagitis; G47.33 Obstructive sleep apnea (adult) (pediatric); D50.9 Iron deficiency anemia, unspecified; Z99.81 Dependence on supplemental oxygen; J20.9 Acute bronchitis, unspecified; J30.9 Allergic rhinitis, unspecified; I08.1 Rheumatic disorders of both mitral and tricuspid valves; E66.01 Morbid (severe) obesity due to excess calories; Z68.33 Body mass index [BMI] 33.0-33.9, adult; Z87.01 Personal history of pneumonia (recurrent); Z87.891 Personal history of nicotine dependence

== ENCOUNTER 2018-10-13 16:16 | Inpatient (IN) | payer MEDICAID ==
[~2018-10-13] VITALS: Ht 170.2 cm; Wt 81.6 kg
--- NOTE | ~2018-10-13 | OP ---
PATIENT NAME: ANAHI PAREDES MEDICAL RECORD: [id number] :58 LOCATION:D.MS [id number] ADMISSION DATE:10/13/18 SURGEON: JACQUELYN JAMES MD DATE OF OPERATION: 10/21/2018 PREOPERATIVE DIAGNOSIS: Lung cancer, in need of IV access for chemotherapy. POSTOPERATIVE DIAGNOSIS: Lung cancer, in need of IV access for chemotherapy. PROCEDURES: 1. Placement of left infraclavicular PowerPort under fluoroscopic guidance. 2. Immediate surgeon interpretation of fluoroscopic images. SURGEON: Jacquelyn James MD CINEMA OR THEATRE MANAGER: None. BLOOD LOSS: Minimal. ANESTHESIA: Local with IV sedation. COMPLICATIONS: None. Due to the patient's very severe respiratory disease, we elected not to perform this procedure under general anesthesia. She is very orthopneic. No radiologist was present for this procedure. Static fluoroscopic images were obtained and are kept in the PACS system. The surgeon interpretation of the radiographic images is dictated within the body of this operative note. OPERATIVE COURSE: The patient was conveyed to the operating room electively on 10/21/2018. IV sedation was induced by the anesthesia staff. The left chest and left neck were sterilely prepped and draped. A local anesthetic was used to infiltrate the skin and subcutaneous tissues at the base of the left neck as well as below the left clavicle. A transverse incision was accomplished inferior to the left clavicle in the anterior-superior chest. Sharp dissection was carried down to the level of the pectoralis muscle. The subcutaneous pocket was fashioned and fashioned bluntly in a caudad direction. I then removed some of the adipose tissue from between the pocket and the skin. This is to allow for easier access of the port. Under ultrasonographic guidance, I percutaneously accessed the left internal jugular vein in an antegrade fashion. A guidewire was passed easily. A skin incision was accomplished around the wire. I then tunneled a catheter from the chest incision to the neck incision. Over the wire, I placed a dilator sheath. The dilator and wire were removed. Through the sheath, I advanced the PowerPort catheter. The peel-away sheath was then removed. I then pulled back on the catheter so that it was near the cavoatrial junction. I cut the catheter and attached it to the PowerPort. The locking device was firmly engaged. The port was placed in subcutaneous pocket. I irrigated the subcutaneous pocket. Three-point fixation was utilized to suture the port to the underlying pectoralis muscle and fascia. This is to prevent the port from flipping. OPERATIVE REPORT [id number] ANAHI PAREDES A Chest incision was closed with interrupted 3-0 Vicryls for the deep dermis as well as a running intracuticular 3-0 Vicryl for the skin and a single 4-0 Vicryl Rapide suture. The neck incision was closed with a single intracuticular 4-0 Vicryl. An image was obtained over the mediastinum. It revealed that the tip of the PowerPort catheter was likely in the right atrium. Another image was obtained over the apex of the left lung and it revealed no radiographic evidence of complication. I accessed the port percutaneously. It accessed easily. It withdrew dark, nonpulsatile blood. I also flushed with heparinized saline. I then de-accessed the port. A sterile dressing was applied. The patient was then conveyed to the post-anesthesia care unit, where she was in stable condition. A chest x-ray is pending. TRANSINT:[id number] Voice Confirmation ID: [id number] DOCUMENT ID: [id number] JACQUELYN JAMES MD CC: PATRICIA SRINIVASAN MD and SHANELL BARRON [id number] DICTATION DATE: 10/21/18 161 VACUUM EVAPORATION OPERATOR: 10/21/18 185 DIS IN 10/21/18 [facility] [address] [place] [address]
[~2018-10-13 16:16] MED LIST changes: +ALBUTEROL SULF8.5 GM INH; +ALDACTONE50 MG PO; +ASPIRIN81 MG PO; +BRETHINE2.5 MG PO; +CARAFATE1 G PO; +DALIRESP500 MCG PO; +FUROSEMIDE20 MG PO; +HYDROCODON-ACE1 EAC7 PO; +K-TAB10 MEQ PO; +KLONOPIN0.5 MG PO; +OMEPRAZOLE20 M1 PO; +ZITHROMAX250 MG PO
[2018-10-13] MEDS ORDERED: LEVEMIR FL100 UNIT/1 SC (16:30)
[2018-10-13] MEDS ORDERED: ULTRAM50 MG PO (16:31)
--- NOTE | 2018-10-13 17:14 | NUR ---
DR. PHILLIPS NOTIFIED AND REVIEWED PATIENT'S BEHAVIOR AND ASSESSMENT RESULTS. PATIENT A LOW RISK PER DR. PHILLIPS. DR. PHILLIPS STATED TO GIVE RESOURCES TO PATIENT. NO FURTHER ORDERS AT THIS TIME. RESOURCES REVIEWED WITH PATIENT AND SHE VERBALIZES UNDERSTANDING.
--- NOTE | 2018-10-13 17:30 | NUR ---
ADVISED LONGTERM NURSE THAT SCREENING NEED FOR PATIENT FOR SUICIDE ASSESSMENT.
[2018-10-13 20:31] LABS: BASOPHILS 0.2 % (0-2); EOSINOPHILS 0.2 % (0-7); HEMOGLOBIN 11.5 g/dL (12-16); IMMATURE GRANULOCYTES 0.4 % (0-5); LYMPHOCYTES 35.2 % (15-50); MCH 30.4 pg (26.0-34.0); MCHC 31.1 g/dL (31.0-37.0); MCV 97.9 fL (80.0-100.0); MEAN PLATELET VOLUME 9.8 fL (7.4-10.4); MONOCYTES 13.1 % (2-11); NEUTROPHILS 50.9 % (40-80); PLATELET COUNT 169 10x3/uL (130-400); RBC 3.78 10x6/uL (4.00-5.40); RDW 14.9 % (11.5-14.5); WBC 4.7 10x3/uL (4.8-10.8)
[2018-10-13 20:58] LABS: ALBUMIN 3.7 g/dL (3.4-5.0); ALKALINE PHOSPHATASE 183 U/L (46-116); ALT (SGPT) 53 U/L (10-68); BILIRUBIN - TOTAL 0.32 mg/dL (0.2-1.3); CALC OSMOLALITY 279 mosm/kg (275-300); CALCIUM 9.4 mg/dL (8.5-10.1); CARBON DIOXIDE 37.3 mmol/L (21.0-32.0); CHLORIDE - SERUM 100 mmol/L (98-107); CKMB 0.3 U/L (0.0-3.6); CREATINE KINASE 15 UL (21-215); CREATININE - SERUM 0.7 mg/dL (0.6-1.3); GLUCOSE 161 mg/dL (74-106); MAGNESIUM - SERUM 2.1 mg/dL (1.8-2.4); PHOSPHOROUS 3.3 mg/dL (2.5-4.9); POTASSIUM - SERUM 4.4 mmol/L (3.5-5.1); PROTEIN - SERUM 7.1 g/dL (6.4-8.2); SODIUM 140 mmol/L (136-145); TROPONIN-I < 0.017 ng/mL (0.000-0.060); UREA NITROGEN 8 mg/dL (7-18); eGFR NON AFRICAN AMERICAN > 90 mL/min (90-120)
[2018-10-13 21:47] VITALS: BP 159/94
[2018-10-13 23:14] VITALS: BP 159/94; BMI 28.2
[2018-10-14 01:23] VITALS: BP 126/89
[2018-10-14 04:53] VITALS: BP 136/91
[2018-10-14 05:07] LABS: BASOPHILS 0.2 % (0-2); EOSINOPHILS 0.6 % (0-7); HEMATOCRIT 36.6 % (36.0-48.0); HEMOGLOBIN 11.3 g/dL (12-16); IMMATURE GRANULOCYTES 0.4 % (0-5); LYMPHOCYTES 36.2 % (15-50); MCH 30.4 pg (26.0-34.0); MCHC 30.9 g/dL (31.0-37.0); MCV 98.4 fL (80.0-100.0); MEAN PLATELET VOLUME 10.3 fL (7.4-10.4); MONOCYTES 12.7 % (2-11); NEUTROPHILS 49.9 % (40-80); PLATELET COUNT 189 10x3/uL (130-400); RBC 3.72 10x6/uL (4.00-5.40); WBC 4.7 10x3/uL (4.8-10.8)
[2018-10-14 06:02] LABS: ALBUMIN 3.5 g/dL (3.4-5.0); ALKALINE PHOSPHATASE 173 U/L (46-116); ALT (SGPT) 46 U/L (10-68); BILIRUBIN - TOTAL 0.29 mg/dL (0.2-1.3); CALC OSMOLALITY 280 mosm/kg (275-300); CALCIUM 9.2 mg/dL (8.5-10.1); CHLORIDE - SERUM 100 mmol/L (98-107); CKMB 0.5 U/L (0.0-3.6); CREATINE KINASE 16 UL (21-215); CREATININE - SERUM 0.6 mg/dL (0.6-1.3); GLUCOSE 125 mg/dL (74-106); MAGNESIUM - SERUM 2.2 mg/dL (1.8-2.4); PRO BNP 66 pg/mL (0-125); PROTEIN - SERUM 6.8 g/dL (6.4-8.2); SODIUM 141 mmol/L (136-145); TROPONIN-I < 0.017 ng/mL (0.000-0.060); UREA NITROGEN 10 mg/dL (7-18); eGFR NON AFRICAN AMERICAN > 90 mL/min (90-120)
[2018-10-14 06:06] LABS: PHOSPHOROUS 4.8 mg/dL (2.5-4.9); POTASSIUM - SERUM 3.7 mmol/L (3.5-5.1)
[2018-10-14 08:39] VITALS: BP 101/75
[2018-10-14 09:09] LABS: CKMB 0.5 U/L (0.0-3.6); CREATINE KINASE 13 UL (21-215); TROPONIN-I < 0.017 ng/mL (0.000-0.060)
--- NOTE | 2018-10-14 09:51 | NUR ---
C/O CHEST PAIN RATING 9/10 ON PAIN SCALE. C/L IN REACH AT BEDSIDE.
--- NOTE | 2018-10-14 10:48 | NUR ---
PT IS REFUSING MRI AT THIS TIME. UNABLE TO LAY FLAT. SPOKE WITH DR PENNINGTON AND SHE WANTS US TO TRY AGAIN TOMORROW. SPOKE WITH RODGER YANES ALSO.
[2018-10-14 13:13] VITALS: BP 109/64
[2018-10-14 13:53] VITALS: BMI 28.2
--- NOTE | 2018-10-14 15:37 | NUR ---
A WHOLE BODY BONE SCAN AND A LEXISCAN STRESS TEST ORDERED. SPOKE WITH BOTH ORDERING PHYSICIANS AND BOTH AGREED TO DO STRESS TEST FIRST BECAUSE WHICH EVER EXAM IS TO BE DONE , THE OTHER WOULD HAVE TO WAIT ~3 DAYS BECAUSE THE ACTIVITY NEEDS TO CLEAR FROM 1ST EXAM. UPON SPEAKING WITH THE PATIENT, SHE STATED SHE WOULD NOT BE ABLE TO TOLERATE LAYING FLAT NEEDED FOR THE PICTURES WHICH TAKES ~15MINS. SHE DID TRY (LOWERED HEAD OF BED SO SHE COULD SEE HOW FLAT). AFTER TRYING SHE SAID SHE COULD NOT DO EXAM. LET ORDERING PHYSICIAN KNOW AND EXAM WAS CANCELLED. INFORMED THE PATIENT TO LET THE PHYSICIAN KNOW IF SHE CHANGED HER MIND AND COULD LAY FLAT. EXPLAINED THE BONE SCAN AND SHE REFUSED THAT BECAUSE SHE CANNOT LAY FLAT. [place] PHYSICIAN CALLED AND INFORMED. EXAM IS CANCELLED.
[2018-10-14 17:36] VITALS: BP 106/78
[2018-10-14 20:50] VITALS: BP 115/71
[2018-10-15 00:50] VITALS: BP 118/73
[2018-10-15 04:47] VITALS: BP 112/82
[2018-10-15 06:36] LABS: BASOPHILS 0 % (0-2); EOSINOPHILS 0.4 % (0-7); HEMATOCRIT 33.4 % (36.0-48.0); HEMOGLOBIN 10.2 g/dL (12-16); IMMATURE GRANULOCYTES 0.4 % (0-5); LYMPHOCYTES 34.5 % (15-50); MCH 29.9 pg (26.0-34.0); MCHC 30.5 g/dL (31.0-37.0); MCV 97.9 fL (80.0-100.0); MEAN PLATELET VOLUME 9.9 fL (7.4-10.4); MONOCYTES 13.1 % (2-11); NEUTROPHILS 51.6 % (40-80); RBC 3.41 10x6/uL (4.00-5.40); RDW 14.8 % (11.5-14.5); WBC 4.6 10x3/uL (4.8-10.8)
[2018-10-15 06:49] LABS: PLATELET COUNT 144 10x3/uL (130-400)
[2018-10-15 06:50] LABS: ALBUMIN 3.1 g/dL (3.4-5.0); ALKALINE PHOSPHATASE 154 U/L (46-116); ALT (SGPT) 42 U/L (10-68); BILIRUBIN - TOTAL 0.26 mg/dL (0.2-1.3); CALC OSMOLALITY 284 mosm/kg (275-300); CALCIUM 9.3 mg/dL (8.5-10.1); CARBON DIOXIDE 39.1 mmol/L (21.0-32.0); CHLORIDE - SERUM 100 mmol/L (98-107); CREATININE - SERUM 0.7 mg/dL (0.6-1.3); GLUCOSE 175 mg/dL (74-106); PROTEIN - SERUM 6.3 g/dL (6.4-8.2); SODIUM 140 mmol/L (136-145); UREA NITROGEN 17 mg/dL (7-18); eGFR NON AFRICAN AMERICAN > 90 mL/min (90-120)
--- NOTE | 2018-10-15 07:15 | NUR ---
REC'D IN BED WITH EYES CLOSED EASILY AROUSED WHEN NAME IS CALLED. RESP EVEN AND UNLABORED WITH NO DISTRESS NOTED OR VOICED. CAN EXPRESS NEEDS AND WANTS WITH NO C/O NOTED OR VOICED AT THIS TIME. ASSESSMENT COMPLETED. C/L IN REACH AT BEDSIDE.
[2018-10-15 08:33] VITALS: Ht 170.2 cm; Wt 81.6 kg
[2018-10-15 09:48] VITALS: BP 130/80
[2018-10-15 13:19] VITALS: BP 114/68
--- NOTE | 2018-10-15 14:30 | NUR ---
PT REFUSED MRI AGAIN. PT STATED SHE WOULD NOT DO THE MRI UNLESS SHE WAS TOTALLY KNOCKED OUT. SPOKE WITH RODGER YANES AND WITH HALEIGH AT DR BOWEN OFFICE. EXAM WAS CANCELLED.
[2018-10-15 16:44] VITALS: BP 116/76
--- NOTE | 2018-10-15 19:30 | NUR ---
PT SITTING UP IN BED WATCHING TV WEARING BIPAP MASK. REPORTS PAIN 7/10 BUT IS AWARE IT ISNT TIME FOR ANY MORE PAIN MEDS YET. UP TO BED SIDE COMMODE FOR BM. DENIES ANY FURTHER NEEDS AT THIS TIME. BED LOW, RAILS UP X 2, CALL LIGHT IN REACH. WILL CONTINUE TO MONITOR.
[2018-10-15 21:58] VITALS: BP 104/75
--- NOTE | 2018-10-15 22:30 | NUR ---
FSBS 168, TREATED WITH 4 UNITS REGULAR INSULINE, 15 UNITS LEVEMIR PER ORDERS.
--- NOTE | 2018-10-15 23:09 | NUR ---
PT REPORTS PAIN 01/14, ADMINISTERED DILAUDID PER DRS ORDERS. DENIES ANY FURTHER NEEDS.
--- NOTE | 2018-10-16 03:28 | NUR ---
PT REPORTS PAIN 12/15 REQUESTING PAIN MEDICATION, ADMINISTERED DILAUDID PER ORDERS. DENIES ANY FURTHER NEEDS AT THIS TIME. BED LOW, CALL LIGHT IN REACH, RAILS UP X 2. WILL CONTINUE TO MONITOR.
[2018-10-16 05:37] VITALS: BP 100/62
--- NOTE | 2018-10-16 06:24 | NUR ---
FSBS 182 TREATED WITH 4 UNITS OF REGULAR INSULIN.
[2018-10-16 08:04] LABS: BASOPHILS 0.2 % (0-2); EOSINOPHILS 0.6 % (0-7); HEMATOCRIT 33.5 % (36.0-48.0); HEMOGLOBIN 10.2 g/dL (12-16); IMMATURE GRANULOCYTES 0.4 % (0-5); LYMPHOCYTES 38.8 % (15-50); MCH 29.7 pg (26.0-34.0); MCHC 30.4 g/dL (31.0-37.0); MCV 97.7 fL (80.0-100.0); MEAN PLATELET VOLUME 10.3 fL (7.4-10.4); MONOCYTES 13.2 % (2-11); NEUTROPHILS 46.8 % (40-80); PLATELET COUNT 168 10x3/uL (130-400); RBC 3.43 10x6/uL (4.00-5.40); RDW 14.8 % (11.5-14.5); WBC 5.4 10x3/uL (4.8-10.8)
[2018-10-16 08:27] LABS: ALBUMIN 3.1 g/dL (3.4-5.0); ALKALINE PHOSPHATASE 141 U/L (46-116); ALT (SGPT) 43 U/L (10-68); BILIRUBIN - TOTAL 0.23 mg/dL (0.2-1.3); CALC OSMOLALITY 286 mosm/kg (275-300); CALCIUM 8.8 mg/dL (8.5-10.1); CARBON DIOXIDE 38.6 mmol/L (21.0-32.0); CHLORIDE - SERUM 99 mmol/L (98-107); CREATININE - SERUM 0.8 mg/dL (0.6-1.3); GLUCOSE 182 mg/dL (74-106); PROTEIN - SERUM 6.1 g/dL (6.4-8.2); SODIUM 140 mmol/L (136-145); UREA NITROGEN 20 mg/dL (7-18); eGFR NON AFRICAN AMERICAN 78 mL/min (90-120)
[2018-10-16 08:31] LABS: POTASSIUM - SERUM 3.2 mmol/L (3.5-5.1)
--- NOTE | 2018-10-16 09:00 | NUR ---
ALERT AND ORIENTED X4 WITH TRILOGY ON AT THIS TIME. PT STATED PAIN IS BETTER WITH DILAUDID GIVEN PRIOR. LUNGS CTA AND HRRR. NO PERIPHERAL EDEMA NOTED. INSTRUCTED ON PROCEDURES TODAY FOR CT AND MRI. IVF INFUSING AT PRESCRIBED RATE TO LT. F/A. ENCOURAGED TO USE CALL LIGHT FOR ASSIT.
[2018-10-16 09:51] VITALS: BP 108/68
--- NOTE | 2018-10-16 11:00 | NUR ---
PT LEAVING FLOOR FOR MRI WITH ASSIT OF STAFF. PT PREMEDICATED WITH VALIUM 5MG AND BENEDRYL PRIOR TO PROCEDURES AND TOLERATING WELL.O2 3/N/C AT THIS TIME. S/L TO LT. F/A AT THIS TIME.
[2018-10-16 12:00] VITALS: BP 136/77
[2018-10-16 16:51] VITALS: BP 123/79
[2018-10-16 20:00] VITALS: BP 124/83
[2018-10-17] VITALS: BP 121/71
[2018-10-17 04:00] VITALS: BP 123/75
[2018-10-17 06:53] LABS: BASOPHILS 0 % (0-2); EOSINOPHILS 0.4 % (0-7); HEMATOCRIT 33.8 % (36.0-48.0); HEMOGLOBIN 10.3 g/dL (12-16); IMMATURE GRANULOCYTES 0.2 % (0-5); LYMPHOCYTES 40.9 % (15-50); MCHC 30.5 g/dL (31.0-37.0); MCV 98.5 fL (80.0-100.0); MEAN PLATELET VOLUME 9.9 fL (7.4-10.4); MONOCYTES 14.7 % (2-11); NEUTROPHILS 43.8 % (40-80); PLATELET COUNT 130 10x3/uL (130-400); RBC 3.43 10x6/uL (4.00-5.40); RDW 14.6 % (11.5-14.5); WBC 5.4 10x3/uL (4.8-10.8)
[2018-10-17 07:10] LABS: BILIRUBIN - TOTAL 0.16 mg/dL (0.2-1.3); CALCIUM 8.7 mg/dL (8.5-10.1); CARBON DIOXIDE 39.6 mmol/L (21.0-32.0); CREATININE - SERUM 0.9 mg/dL (0.6-1.3); POTASSIUM - SERUM 3.6 mmol/L (3.5-5.1); PROTEIN - SERUM 6.1 g/dL (6.4-8.2)
[2018-10-17 09:29] VITALS: BP 119/78
[2018-10-17 13:50] VITALS: BP 110/74
[2018-10-17 16:37] VITALS: BP 148/76
--- NOTE | 2018-10-17 19:25 | NUR ---
LYING IN BED WATCHING TV. C/O GENERALIZED PAIN RATING 10. MEDICATED WITH DILAUDID ORDERED. O2 @ 3L/NC. RESP IRREG. BBS EXP WHEEZES AND DIMINISHED IN RLL. BRUISES NOTED TO BUE. ABD DISTENDED AND FIRM. BS PRESENT X4 QUADS. EDEMA NOTED TO BLE. PROD COUGH WITH CLEAR SPUTUM. SALINE LOCK NOTED TO LT AC AND LT FOREARM. AMB WITH ASSIST X1. SR ELEVATED X2. CL IN REACH. ALERT AND ORIENTED. IRRITABLE.
--- NOTE | 2018-10-17 19:37 | NUR ---
I have reviewed this patient and I concur with the Shift Assessment completed by the Licensed Practical Nurse today this shift.
[2018-10-17 20:17] VITALS: BP 137/84
--- NOTE | 2018-10-17 21:00 | NUR ---
SALINE LOCK REMOVED FROM LT AC. NO LONGER PATENT.
--- NOTE | 2018-10-17 23:25 | NUR ---
MEDICATED WITH DILAUDID FOR C/O GEN PAIN RATING 10. FAMILY AT BEDSIDE. CL IN REACH.
[2018-10-18 01:42] VITALS: BP 92/62
--- NOTE | 2018-10-18 04:05 | NUR ---
MEDICATED WITH DILAUDID FOR C/O GEN PAIN RATING 9. REQUESTED SNACK ALSO. CL IN REACH.
[2018-10-18 06:23] LABS: BASOPHILS 0 % (0-2); EOSINOPHILS 0.6 % (0-7); HEMATOCRIT 33.8 % (36.0-48.0); HEMOGLOBIN 10.3 g/dL (12-16); IMMATURE GRANULOCYTES 0.4 % (0-5); LYMPHOCYTES 35.3 % (15-50); MCHC 30.5 g/dL (31.0-37.0); MCV 98.5 fL (80.0-100.0); MEAN PLATELET VOLUME 10.4 fL (7.4-10.4); MONOCYTES 10.3 % (2-11); NEUTROPHILS 53.4 % (40-80); RBC 3.43 10x6/uL (4.00-5.40); RDW 14.6 % (11.5-14.5); WBC 4.8 10x3/uL (4.8-10.8)
[2018-10-18 06:29] LABS: PLATELET COUNT 159 10x3/uL (130-400)
[2018-10-18 06:55] LABS: ALBUMIN 3.1 g/dL (3.4-5.0); ALKALINE PHOSPHATASE 135 U/L (46-116); ALT (SGPT) 45 U/L (10-68); BILIRUBIN - TOTAL 0.19 mg/dL (0.2-1.3); CALC OSMOLALITY 285 mosm/kg (275-300); CALCIUM 8.9 mg/dL (8.5-10.1); CHLORIDE - SERUM 98 mmol/L (98-107); CREATININE - SERUM 0.8 mg/dL (0.6-1.3); GLUCOSE 209 mg/dL (74-106); POTASSIUM - SERUM 3.4 mmol/L (3.5-5.1); PROTEIN - SERUM 6.4 g/dL (6.4-8.2); SODIUM 139 mmol/L (136-145); UREA NITROGEN 17 mg/dL (7-18); eGFR NON AFRICAN AMERICAN 78 mL/min (90-120)
[2018-10-18 09:16] VITALS: BP 109/76
[2018-10-18 12:35] VITALS: BP 129/72
--- NOTE | 2018-10-18 15:53 | NUR ---
I have reviewed this patient and I concur with the Shift Assessment completed by the Licensed Practical Nurse today this shift.
[2018-10-18 16:36] VITALS: BP 114/69
--- NOTE | 2018-10-18 19:25 | NUR ---
SITTING UP IN BED. CPAP ON. ALERT AND ORIENTED X4. RATES GEN PAIN 9. REQUESTING PAIN MED BUT NOT DUE YET. SALINE LOCK NOTED TO LT FOREARM. ABD DISTENDED. BS HYPOACTIVE X4 QUADS. BRUISES NOTED TO BUE. 2+ EDEMA NOTED TO BLE. NONPROD COUGH NOTED. FAMILY AT BEDSIDE. SR ELEVATED X2. CL IN REACH.
--- NOTE | 2018-10-18 19:50 | NUR ---
MEDICATED WITH DILAUDID FOR C/O GEN PAIN. CL IN REACH.
[2018-10-18 20:00] VITALS: BP 128/80
--- NOTE | 2018-10-18 23:25 | NUR ---
MEDICATED FOR C/O GEN PAIN WITH DILAUDID. SR ELEVATED X2. CL IN REACH. CPAP IN USE. FAMILY AT BEDSIDE.
[2018-10-19] VITALS: BP 90/66
--- NOTE | 2018-10-19 02:20 | NUR ---
MEDICATED FOR C/O GENERALIZED PAIN WITH DILAUDID. CL IN REACH.
[2018-10-19 05:15] LABS: BASOPHILS 0.2 % (0-2); EOSINOPHILS 0.8 % (0-7); HEMATOCRIT 34.5 % (36.0-48.0); HEMOGLOBIN 10.8 g/dL (12-16); IMMATURE GRANULOCYTES 0.4 % (0-5); MCH 30.3 pg (26.0-34.0); MCHC 31.3 g/dL (31.0-37.0); MCV 96.6 fL (80.0-100.0); MEAN PLATELET VOLUME 10.1 fL (7.4-10.4); MONOCYTES 14.3 % (2-11); NEUTROPHILS 46.3 % (40-80); PLATELET COUNT 157 10x3/uL (130-400); RBC 3.57 10x6/uL (4.00-5.40); RDW 14.4 % (11.5-14.5)
--- NOTE | 2018-10-19 05:15 | NUR ---
MEDICATED WITH DILAUDID FOR C/O GENERALIZED PAIN. CL IN REACH.
[2018-10-19 05:24] LABS: ALBUMIN 3.4 g/dL (3.4-5.0); ALKALINE PHOSPHATASE 134 U/L (46-116); ALT (SGPT) 45 U/L (10-68); BILIRUBIN - TOTAL 0.27 mg/dL (0.2-1.3); CALC OSMOLALITY 283 mosm/kg (275-300); CALCIUM 9.1 mg/dL (8.5-10.1); CARBON DIOXIDE 38.5 mmol/L (21.0-32.0); CHLORIDE - SERUM 98 mmol/L (98-107); CREATININE - SERUM 0.8 mg/dL (0.6-1.3); POTASSIUM - SERUM 3.7 mmol/L (3.5-5.1); PROTEIN - SERUM 6.9 g/dL (6.4-8.2); SODIUM 140 mmol/L (136-145); UREA NITROGEN 17 mg/dL (7-18); eGFR NON AFRICAN AMERICAN 78 mL/min (90-120)
[2018-10-19 05:31] LABS: GLUCOSE 148 mg/dL (74-106)
--- NOTE | 2018-10-19 07:25 | NUR ---
PT RESTING IN BED, ALERT AND ORIENTED. BRUISES BUE. EDEMA TO BLE. ON ELECTROLYTE PROTOCOL. UP WITH ASSIST. ON 3L O2, NC. IV TO LEFT FOREARM, SL. SITE PATENT WITHOUT REDNESS OR SWELLING. PT ACHS. ABDOMEN DISTENDED. NO C/O PAIN. NO S/S OF ACUTE DISTRESS NOTED. CALL LIGHT IN REACH. WILL CONTINUE TO MONITOR.
[2018-10-19 09:46] VITALS: BP 104/70
--- NOTE | 2018-10-19 12:54 | NUR ---
I have reviewed this patient and I concur with the Shift Assessment completed by the Licensed Practical Nurse today this shift.
--- NOTE | 2018-10-19 13:15 | MORECARE ---
CASE MANAGEMENT DISCHARGE SUMMARY PATIENT: ANAHI FERNÁNDEZ UNIT: [id number] ADM DATE: 10/13/18 AGE: 58 : 58 SEX: F ROOM/BED: D.2233 AUTHOR: ANTHONY MERCADO PHYSICIAN: REFERRING PHYSICIAN: SHANELL BARRON MD DATE OF SERVICE: 10/19/18 Discharge Plan Patient Name: ANAHI FERNÁNDEZ Facility: [facility]:[place] : 1960 Planned Disposition: Home with Home Health Anticipated Discharge Date: Discharge Date: Expected LOS: Initial Reviewer: [id number] Initial Review Date: 10/19/2018 Generated: 10/19/18 2:14 pm Comments DCP- Discharge Planning Updated by [email or web address]: Gricelda Brown on 10/19/18 12:[address] Patient Name: ANAHI FERNÁNDEZ Admission Status: ER Accout number: [id number] Admission Date: 10-13-2018 : 1960 Admission Diagnosis:CHEST PAIN, UNSPECIFIED Attending: SHANELL BARRON Current LOS: 6 Anticipated DC Date: Planned Disposition: Home with Home Health Primary Insurance: [place]ICAID [place] Discharge Planning Comments: CM met with patient and her spouse to discuss discharge planning/needs. She was transferred from the ED in [place] to here. She states she was living with her with [facility] in [place]. She states she has [facility] for nursing and PT. She has oxygen and portable oxygen from [facility]. She received her Trilogy from [facility]. She states her physical address is [address] [place] [address] in [facility]. [id number]. I discussed availability of continuing home health and additional DME needs as well as rehab. She states her discharge plan is to return home with her with resumption of home health. States she has had hospice ([place]) in the past, but wishes to seek treatment and does not want hospice at this time. CM will continue to follow and assist with discharge planning/needs. Lobby Attendant: Gricelda Brown DCPIA - Discharge Planning Initial Assessment Updated by [id number]: Gricelda Brown on 10/19/18 1:05 pm * Is the patient Alert and Oriented? Yes * PCP Melissa Zuñiga - [facility] in [place] * Pharmacy [facility] in [facility] or [facility] in [place] * Preadmission Environment Home with Family * ADLs Partial Dependent * Partial ADLs (Assistance needed) Ambulation Bathing Dressing Medication Management * Equipment Bedside [facility] Bed Nebulizer Other Oxygen Rolling Walker Wheelchair * Other Equipment Portable oxygen Trilogy Lift chair * List name and contact numbers for known caregivers / representatives who currently or will assist patient after discharge: Taras Fernández - spouse - [phone] * Verbal permission to speak to the caregivers and representatives has been obtained from the patient. Yes * Community resources currently utilized Home Health * Please name any agencies selected above. [facility] in [place] * Additional services required to return to the preadmission environment? No * Can the patient safely return to the preadmission environment? Yes * Has this patient been hospitalized within the prior 30 days at any hospital? No Coverage Notice Reviewer: [id number] Eloina Brown Notice Issued Date-Time: 10/19/2018 13:10 Notice Type: Patient Choice Letter Notice Delivered To: Patient Relationship to Patient: Self High Scaler Name: Delivery Method: HAND - Hand Delivered Janina Days: Prior Verbal Notification: Recipient Understood Notice: Yes Recipient Signature: Yes Med Rec Note Co-signed by Attending: Coverage Notice Comment: LIZBETH for [facility] in [facility] Patient Name: ANAHI FERNÁNDEZ Page [phone] at 1315 All edits/amendments must be made on the electronic document DICTATION DATE: 10/19/18 1314 CLINICAL SUPPORT TECH: WAYNE 10/19/18 1314 RPT#: [id number] DC DATE: STATUS: ADM IN [facility] [address] [place] [address] END OF REPORT
[2018-10-19 14:23] VITALS: BP 124/82
--- NOTE | 2018-10-19 14:24 | NUR ---
NUTRITION F/U CHART REVIEWED. PT TOLERATING DIABETIC DIET WITH 75 TO 100% INTAKE RECENT MEALS. CONTINUES TO BE ASSESSED AT LOW NUTRITIONAL RISK. RD FOLLOWING
--- NOTE | 2018-10-19 16:27 | MORECARE ---
CASE MANAGEMENT DISCHARGE SUMMARY PATIENT: ANAHI FERNÁNDEZ UNIT: [id number] ADM DATE: 10/13/18 AGE: 58 : 58 SEX: F ROOM/BED: D.2233 AUTHOR: ROGELIO,DOC PHYSICIAN: REFERRING PHYSICIAN: SHANELL BARRON MD DATE OF SERVICE: 10/19/18 Discharge Plan Patient Name: ANAHI FERNÁNDEZ Facility: [facility]:[place] : 1960 Planned Disposition: Home with Home Health Anticipated Discharge Date: Discharge Date: Expected LOS: Initial Reviewer: [email or web address] Initial Review Date: 10/19/2018 Generated: 10/19/18 5:26 pm Comments DCP- Discharge Planning Updated by [email or web address]: Gricelda Brown on 10/19/18 3:[address] Spoke with Ronda at [facility] in [place] and they will continue home health on discharge. Updated clinical faxed to [facility] in [place]. CM will continue to follow and assist with discharge planning/needs. DCP- Discharge Planning Updated by [email or web address]: Gricelda Brown on 10/19/18 12:[address] Patient Name: ANAHI FERNÁNDEZ Admission Status: ER Accout number: [id number] Admission Date: 10-13-2018 : 1960 Admission Diagnosis:CHEST PAIN, UNSPECIFIED Attending: SHANELL BARRON Current LOS: 6 Anticipated DC Date: Planned Disposition: Home with Home Health Primary Insurance: MEDICAID [place] Discharge Planning Comments: CM met with patient and her spouse to discuss discharge planning/needs. She was transferred from the ED in [place] to here. She states she was living with her with [facility] in [place]. She states she has HHS for nursing and PT. She has oxygen and portable oxygen from [facility]. She received her Trilogy from [facility] [place]. She states her physical address is [address] [place] [address] in [facility] [address]. I discussed availability of continuing home health and additional DME needs as well as rehab. She states her discharge plan is to return home with her with resumption of home health. States she has had hospice ([place]) in the past, but wishes to seek treatment and does not want hospice at this time. CM will continue to follow and assist with discharge planning/needs. Training Professional: [facility]el[facility] Brown [facility] Initial Assessment Updated by [email or web address]: Gricelda Brown on 10/19/18 1:05 pm * Is the patient Alert and Oriented? Yes * PCP Melissa Zuñiga - [facility] in [place] * Pharmacy [facility] in [facility] or [facility] in [place] * Preadmission Environment Home with Family * ADLs Partial Dependent * Partial ADLs (Assistance needed) Ambulation Bathing Dressing Medication Management * Equipment Bedside [facility] Bed Nebulizer Other Oxygen Rolling Walker Wheelchair * Other Equipment Portable oxygen Trilogy Lift chair * List name and contact numbers for known caregivers / representatives who currently or will assist patient after discharge: Taras Fernández - spouse - [phone] * Verbal permission to speak to the caregivers and representatives has been obtained from the patient. Yes * Community resources currently utilized Home Health * Please name any agencies selected above. [facility] in [place] * Additional services required to return to the preadmission environment? No * Can the patient safely return to the preadmission environment? Yes * Has this patient been hospitalized within the prior 30 days at any hospital? No External Providers External Provider: [place] [facility] Next Contact Date: Service Request Date: Service Type: Resolution: Reviewer: Comments: Coverage Notice Reviewer: [id number] - Gricelda Brown Notice Issued Date-Time: 10/19/2018 13:10 Notice Type: Patient Choice Letter Notice Delivered To: Patient Relationship to Patient: Self Foil Operator Name: Delivery Method: HAND - Hand Delivered Janina Days: Prior Verbal Notification: Recipient Understood Notice: Yes Recipient Signature: Yes Med Rec Note Co-signed by Attending: Coverage Notice Comment: LIZBETH for [facility] in [place] and [facility] [place] Last DP export: 10/19/18 12:15 p Patient Name: ANAHI FERNÁNDEZ Page [id number] at 8861 All edits/amendments must be made on the electronic document DICTATION DATE: 10/19/181625 PAINTING SUPERVISOR: WAYNE 10/19/181625 RPT#: [id number] DC DATE: STATUS: ADM IN [facility] [address] [place] [address] END OF REPORT
[2018-10-19 17:12] VITALS: BP 122/80
[2018-10-19] MEDS ORDERED: SINGULAIR10 MG PO (17:26)
[2018-10-19] MEDS ORDERED: DALIRESP500 MCG PO (17:26)
[2018-10-19] MEDS ORDERED: FLUTICASONE PRO16 GM NASAL (17:27)
--- NOTE | 2018-10-19 18:15 | NUR ---
PT SITTING UP IN CHAIR, ALERT AND ORIENTED. C/O PAIN. GAVE DILAUDID 1MG IV FOR PAIN. PT ALSO HAS NORCO FOR PAIN, PT IS REFUSING TO TAKE THE NORCO FOR PAIN STATING THAT HER PAIN MANAGEMENT DOCTOR STATED SHE CANNOT TAKE ANYTHING WITH ACETAMINOPHEN IN IT. NOTIFIED DR. STONE. PT DENIES ANYTHING FURTHER AT THIS TIME. CALL LIGHT IN REACH. WILL CONTINUE TO MONITOR.
--- NOTE | 2018-10-19 18:38 | CN ---
PATIENT NAME:ANAHI FERNÁNDEZ MEDICAL RECORD: [id number] : 58 LOCATION:D.MS Med[place]2233 ADMIT DATE: 10/13/18 ACCOUNT: [id number] CONSULTING PHYSICIAN: WILL GOLDBERG MD REFERRING PHYSICIAN: SHANELL BARRON MD DATE OF CONSULTATION: 10/14/2018 CARDIOLOGY CONSULTATION DATE OF SERVICE: 10/14/2018 DIAGNOSES: 1. Angina. 2. Shortness of breath, dyspnea on exertion. 3. Chronic obstructive pulmonary disease. 4. Smoking history. 5. Paroxysmal atrial fibrillation. 6. Hypertension. 7. Insulin-dependent diabetes. HISTORY OF PRESENT ILLNESS: Mrs. Fernández was transferred from [place] due to chest pain. She was there with COPD exacerbation. Her shortness of breath, dyspnea on exertion is worse. She continues to have episodes of chest discomfort. She has no acute ST-T changes on her EKG. She has no history of ischemic heart disease. PHYSICAL EXAMINATION: GENERAL APPEARANCE: Well-nourished, well-developed, appears stated age. Level of distress, comfortable. PSYCHIATRIC: Mental status, alert, normal affect. Orientation, oriented to time, place and person. EYES: Lids and conjunctiva, noninjected. No discharge, no pallor. ENT: Lips, teeth, gums, normal dentition. Oropharynx, no cyanosis, no pallor. NECK: Carotid arteries, bilateral normal upstroke, no bruits, no thrills. JUGULAR VEINS: No jugular venous pressure or distention. CERVICAL LYMPH NODES: Nontender, nonenlarged. THYROID: Not enlarged. Nontender. No nodules. LUNGS: Respiratory effort, unlabored. CHEST: Normal curvature. No thoracic deformity. No chest wall tenderness. Percussion, resonant. Auscultation, clear. No wheezes, no rales, no rhonchi. CARDIOVASCULAR: Precordial exam, nondisplaced. No heaves or pericardial thrills. Rate and rhythm, regular. Heart sounds, normal S1, normal S2. No S3, no gallop, no rub. Systolic murmur, not heard. Diastolic murmur, not heard. EXTREMITIES: No cyanosis, no edema. Peripheral pulses, full and equal in all extremities, except as noted. No bruits appreciated. ABDOMEN: Soft, nondistended. Normal aorta. No bruit. Nontender. No masses. Liver, nontender, no hepatomegaly. Spleen, nontender, no splenomegaly. MUSCULOSKELETAL: No joint tenderness. No joint swelling. No erythema. NEUROLOGICAL: Normal gait, normal strength, normal tone. SKIN: Warm and dry. OVERALL IMPRESSION: Chest pain compatible with angina. We will risk stratify with stress testing Cardiolite imaging, also get an echocardiogram due to the increased shortness of breath, dyspnea on exertion for valvular disease and for pulmonary pressure evaluation. CONSULT REPORT [id number] ANAHI FERNÁNDEZ TRANSINT:[id number] Voice Confirmation ID: [id number] DOCUMENT ID: [id number] WILL GOLDBERG MD at 1838 CC: [id number] DICTATION DATE: 10/14/18 1141 FABRICATION TECHNICIAN: 10/14/18 1151 ADM IN [place] [id number] [place] [id number]
--- NOTE | 2018-10-19 18:38 | EC ---
PATIENT:ANAHI PAREDES DATE OF SERVICE: 10/13/18 SEX: F MEDICAL RECORD: [id number] DATE OF : 58 LOCATION:D.MS Cha AGE OF PATIENT: 58 ADMISSION DATE: 10/13/18 REFERRING PHYSICIAN: INTERPRETING PHYSICIAN: WILL FRAIRE MD ECHOCARDIOGRAM REPORT ECHO CHARGES 5 ECHO LIMITED Date: 10/14/18 CLINICAL DIAGNOSIS: CHEST PAIN ECHOCARDIOGRAPHIC MEASUREMENTS (adult normal given) AC root (d.<3.7cm) 2.7 cm LV Septum d (<1.2 cm> 1.5 cm Valve Excursion 1.0 cm LV Septum (systole) 1.6 cm Left Atria (s.<4.0cm> 3.0 cm LVPW d(<1.2cm) 1.6 cm RV (d.<2.3cm) 3.0 cm LVPW (sytole) 1.8 cm LV diastole(<5.6CM) 4.7 cm MV E-F(>70mm/sec) cm LV systole 3.1 cm LVOT Diameter 1.7 cm MV exc.(>10mm) cm Est.ejection fraction (50-75%) % DOPPLER: LVIT cm/sec A 89.0 cm/sec E 63.0 cm/sec LA cm/sec RVSP 18 mmHg LVOT cm/sec AOP1/2T m/s Asc. Ao cm/sec RVOT cm/sec RA cm/sec PA cm/sec AV Gradient Peak mmHg AV Mean mmHg AV Area cm MV Gradient Peak 5.36 mmHg MV Mean 2.65 mmHg MV Area cm COMMENTS: Multi Skilled Operator: Chery NOVA Physical Therapist: 1 Dr. Fraire TAPE# PACS Pericardial Effusion N DATE OF SERVICE: 10/14/2018 FINDINGS: 1. Left ventricular chamber size is within normal limits. Left ventricular systolic function is normal. Overall ejection fraction is estimated at 55%. 2. Left atrium, right atrium, and right ventricular chamber sizes are within normal limit. 3. Valvular structures have normal structure and motion. 4. Doppler interrogation reveals no significant valvular insufficiency or stenosis. Pulmonary systolic pressure is normal, estimated at 18 mmHg. ECHOCARDIOGRAM REPORT [id number] ANAHI PAREDES 5. No evidence of pericardial effusion or left ventricular thrombus. TRANSINT:[id number] Voice Confirmation ID: [id number] DOCUMENT ID: [id number] WILL FRAIRE MD at 1838 CC: [id number] DICTATION DATE: 10/14/181708 DISTRICT SALES MANAGER: 10/14/18 190 ADM IN [facility] [address] [place] [id number]
--- NOTE | 2018-10-19 20:00 | NUR ---
PT SITTING UP IN BED WITHOUT DISTRESS, ALERT AND ORIENTED. AT BEDSIDE. STATES PAIN 9. REQUESTED HER HOME TRAMADOL BE ORDERED. SPOKE WITH VICKY STOCK APN AND RECIEVED ORDER FOR TRAMADOL 50MG. GAVE ORDERED. DENIES OTHER NEEDS. CL IN REACH, WILL CTM
[2018-10-19 22:03] VITALS: BP 103/60
[2018-10-20 01:49] VITALS: BP 105/68
[2018-10-20 05:55] LABS: BASOPHILS 0.2 % (0-2); EOSINOPHILS 0.4 % (0-7); HEMATOCRIT 31.8 % (36.0-48.0); HEMOGLOBIN 9.9 g/dL (12-16); IMMATURE GRANULOCYTES 0.4 % (0-5); LYMPHOCYTES 46.4 % (15-50); MCH 29.6 pg (26.0-34.0); MCHC 31.1 g/dL (31.0-37.0); MCV 95.2 fL (80.0-100.0); MEAN PLATELET VOLUME 10.3 fL (7.4-10.4); MONOCYTES 11.2 % (2-11); NEUTROPHILS 41.4 % (40-80); PLATELET COUNT 142 10x3/uL (130-400); RBC 3.34 10x6/uL (4.00-5.40); RDW 14.2 % (11.5-14.5); WBC 4.8 10x3/uL (4.8-10.8)
[2018-10-20 06:20] LABS: ALBUMIN 3.1 g/dL (3.4-5.0); ALKALINE PHOSPHATASE 117 U/L (46-116); ALT (SGPT) 42 U/L (10-68); BILIRUBIN - TOTAL 0.27 mg/dL (0.2-1.3); CALC OSMOLALITY 283 mosm/kg (275-300); CALCIUM 9.1 mg/dL (8.5-10.1); CHLORIDE - SERUM 99 mmol/L (98-107); CREATININE - SERUM 0.8 mg/dL (0.6-1.3); GLUCOSE 114 mg/dL (74-106); POTASSIUM - SERUM 3.7 mmol/L (3.5-5.1); PROTEIN - SERUM 6.2 g/dL (6.4-8.2); SODIUM 141 mmol/L (136-145); UREA NITROGEN 17 mg/dL (7-18); eGFR NON AFRICAN AMERICAN 78 mL/min (90-120)
[2018-10-20 06:28] LABS: CARBON DIOXIDE 40.5 mmol/L (21.0-32.0)
[2018-10-20 06:31] VITALS: BP 103/71
--- NOTE | 2018-10-20 07:35 | NUR ---
RCVD PT ALERT AND ORIENTED, RESTING IN BED WITH TRILOGY ON. AT BEDSIDE. ON ELECTROLYTE PROTOCOL. ON 3L O2, NC. IV LEFT FOREARM, SL. SITE PATENT WITHOUT REDNESS OR SWELLING. ON ELECTROLYTE PROTOCOL. PT ACHS. NO C/O PAIN. NO S/S OF ACUTE DISTRESS NOTED. CALL LIGHT IN REACH. WILL CONTINUE TO MONITOR.
[2018-10-20 09:32] VITALS: BP 100/68
[2018-10-20 13:01] VITALS: BP 122/84
[2018-10-20 18:40] LABS: APPEARANCE CLEAR (CLEAR); BILIRUBIN NEGATIVE (NEGATIVE); COLOR YELLOW (YELLOW); GLUCOSE NEGATIVE (NEGATIVE); KETONE NEGATIVE (NEGATIVE); NITRITE NEGATIVE (NEGATIVE); PROTEIN NEGATIVE (NEGATIVE); UROBILINOGEN NORMAL (NORMAL)
--- NOTE | 2018-10-20 18:41 | NUR ---
PT ALERT AND ORIENTED, SITTING UP IN CHAIR. PT DENIES ANY NEEDS AT THIS TIME. CALL LIGHT IN REACH. WILL CONTINUE TO MONITOR.
[2018-10-20 18:45] VITALS: BP 118/75
[2018-10-20 20:00] VITALS: BP 97/64
--- NOTE | 2018-10-20 20:00 | NUR ---
PT SITTING UP IN BED WITHOUT DISTRESS, ALERT AND ORIENTED. AT BEDSIDE. PT STATES SHE IS HAVING GENERALIZED PAIN, 11/14. WILL GIVE ULTRAM ORDERED. IV LEFT FA SL. O2 2.5L/NC. REMINDED PT SHE IS NPO AFTER MIDNIGHT, VERBALIZED UNDERSTANDING. DENIES OTHER NEEDS. CL IN REACH, WILL CTM
[2018-10-21] VITALS: BP 108/60
[2018-10-21 04:00] VITALS: BP 102/64
[2018-10-21 07:02] LABS: BASOPHILS 0.2 % (0-2); EOSINOPHILS 0.4 % (0-7); HEMATOCRIT 31.7 % (36.0-48.0); IMMATURE GRANULOCYTES 0.4 % (0-5); MCHC 31.5 g/dL (31.0-37.0); MCV 95.2 fL (80.0-100.0); MEAN PLATELET VOLUME 10.7 fL (7.4-10.4); MONOCYTES 15.4 % (2-11); NEUTROPHILS 44.6 % (40-80); PLATELET COUNT 144 10x3/uL (130-400); RBC 3.33 10x6/uL (4.00-5.40); RDW 14.3 % (11.5-14.5); WBC 4.8 10x3/uL (4.8-10.8)
[2018-10-21 07:26] LABS: ALKALINE PHOSPHATASE 109 U/L (46-116); ALT (SGPT) 37 U/L (10-68); CALC OSMOLALITY 285 mosm/kg (275-300); CALCIUM 9.3 mg/dL (8.5-10.1); CARBON DIOXIDE 37.9 mmol/L (21.0-32.0); CHLORIDE - SERUM 100 mmol/L (98-107); CREATININE - SERUM 0.7 mg/dL (0.6-1.3); GLUCOSE 104 mg/dL (74-106); POTASSIUM - SERUM 3.2 mmol/L (3.5-5.1); PROTEIN - SERUM 6.1 g/dL (6.4-8.2); SODIUM 143 mmol/L (136-145); UREA NITROGEN 16 mg/dL (7-18); eGFR NON AFRICAN AMERICAN > 90 mL/min (90-120)
--- NOTE | 2018-10-21 07:36 | NUR ---
ALERT AND ORIENTED X 3. LUNGS DIMINISHED IN BILATERAL LOWER LOBES. HEART SOUNDS S1 AND S2 HEARD IN ALL PA. BOWEL SOUNDS ACTIVE X4. SKIN INTACT WITHOUT REDNESS. EDEMA NOTED TO BLE. AT BEDSIDE. DENIES PAIN. DENIES NEEDS. BED LOW. CALL ARELLANO AND PERSONAL ITEMS IN REACH. WILL CONTINUE TO MONITOR.
--- NOTE | 2018-10-21 08:42 | NUR ---
SPOKE WITH POLLY DENISE. STATES PATIENT CAN TAKE AM MEDS DESPITE NPO STATES SINCE AFTERNOON PROCEDURE.
[2018-10-21 09:02] VITALS: BP 123/79
--- NOTE | 2018-10-21 10:13 | NUR ---
SLEEPING. AT BEDSIDE. WILL CONTINUE TO MONITOR.
--- NOTE | 2018-10-21 12:00 | NUR ---
PATIENT NOT IN ROOM. CALLED SURGERY TO ASK IF PATIENT WAS TAKEN FOR PROCEDURE. STATED PATIENT NOT TAKEN.
--- NOTE | 2018-10-21 12:20 | NUR ---
PREOP MEDICATIONS GIVEN PER ORDER.
--- NOTE | 2018-10-21 13:52 | NUR ---
RESTING IN BED. DENIES PAIN. DENIES NEEDS. WILL CONTINUE TO MONITOR.
--- NOTE | 2018-10-21 14:07 | NUR ---
PATIENT TAKEN FOR PORT PLACEMENT.
[2018-10-21 16:40] VITALS: BP 119/72
--- NOTE | 2018-10-21 16:41 | NUR ---
PATIENT RETURNED FROM PORT PLACEMENT. VITALS STABLE. WILL CONTINUE TO MONITOR.
--- NOTE | 2018-10-21 16:44 | NUR ---
PATIENT STATES WANTS STONGER PAIN MEDICATION. SPOKE WITH POLLY DENISE. STATES NOT GIVING ANYTHING STRONGER AND PATIENT CAN DISCHARGE HOME TODAY.
--- NOTE | 2018-10-21 17:11 | MORECARE ---
CASE MANAGEMENT DISCHARGE SUMMARY PATIENT: ANAHI FERNÁNDEZ UNIT: [id number] ADM DATE: 10/13/18 AGE: 58 : 58 SEX: F ROOM/BED: D.2233 AUTHOR: ROGELIO,DOC PHYSICIAN: REFERRING PHYSICIAN: SHANELL BARRON MD DATE OF SERVICE: 10/21/18 Discharge Plan Patient Name: ANAHI FERNÁNDEZ Facility: [facility]:[place] : 1960 Planned Disposition: Home with Home Health Anticipated Discharge Date: Discharge Date: Expected LOS: Initial Reviewer: [email or web address] Initial Review Date: 10/19/2018 Generated: 10/21/18 6:11 pm Comments DCP- Discharge Planning Updated by [id number]: Gricelda Brown on 10/21/18 4:[address] I SPOKE WITH TIFF AT [facility] AND INFORMED HER PATIENT WAS BEING DISCHARGED TODAY AFTER PORT PLACEMENT, CLINICAL FAXED. CM WILL COTNINUE TO FOLLOW AND ASSIST WITH DISCHARGE PLANNING/NEEDS. DCP- Discharge Planning Updated by [email or web address]: Gricelda Brown on 10/19/18 3:[address] Spoke with Ronda at [facility] in [place] and they will continue home health on discharge. Updated clinical faxed to [facility] in [place]. CM will continue to follow and assist with discharge planning/needs. DCP- Discharge Planning Updated by [email or web address]: Gricelda Brown on 10/19/18 12:[address] Patient Name: ANAHI FERNÁNDEZ Admission Status: ER Accout number: [id number] Admission Date: 10-13-2018 : 1960 Admission Diagnosis:CHEST PAIN, UNSPECIFIED Attending: SHANELL BARRON Current LOS: 6 Anticipated DC Date: Planned Disposition: Home with Home Health Primary Insurance: MEDICAID [place] Discharge Planning Comments: CM met with patient and her spouse to discuss discharge planning/needs. She was transferred from the ED in [place] to here. She states she was living with her with [facility] in [place]. She states she has [facility] for nursing and PT. [facility] She received her Trilogy from [facility]. She states her physical address is [address] [place] [address] in [facility]. [address]. I discussed availability of continuing home health and additional DME needs as well as rehab. She states her discharge plan is to return home with her with resumption of home health. States she has had hospice ([place]) in the past, but wishes to seek treatment and does not want hospice at this time. CM will continue to follow and assist with discharge planning/needs. Instrument And Electrical Technician: Gricelda Brown DCPIA - Discharge Planning Initial Assessment Updated by [email or web address]: Gricelda Brown on 10/19/18 1:05 pm * Is the patient Alert and Oriented? Yes * PCP Melissa Zuñiga - [facility] in [place] * Pharmacy [facility] in [facility] or [facility] in [place] * Preadmission Environment Home with Family * ADLs Partial Dependent * Partial ADLs (Assistance needed) Ambulation Bathing Dressing Medication Management * Equipment Bedside [facility] Bed Nebulizer Other Oxygen Rolling Walker Wheelchair * Other Equipment Portable oxygen Trilogy Lift chair * List name and contact numbers for known caregivers / representatives who currently or will assist patient after discharge: Taras Fernández - spouse - [phone] * Verbal permission to speak to the caregivers and representatives has been obtained from the patient. Yes * Community resources currently utilized Home Health * Please name any agencies selected above. [facility] in [place] * Additional services required to return to the preadmission environment? No * Can the patient safely return to the preadmission environment? Yes * Has this patient been hospitalized within the prior 30 days at any hospital? No Coverage Notice Reviewer: [id number] - Gricelda Brown Notice Issued Date-Time: 10/19/2018 13:10 Notice Type: Patient Choice Letter Notice Delivered To: Patient Relationship to Patient: Self Package Dye Stand Loader Name: Delivery Method: HAND - Hand Delivered Janina Days: Prior Verbal Notification: Recipient Understood Notice: Yes Recipient Signature: Yes Med Rec Note Co-signed by Attending: Coverage Notice Comment: LIZBETH for [facility] in [place] and [facility] Last DP export: 10/19/18 3:26 p Patient Name: ANAHI FERNÁNDEZ Page 70524 at 3121 All edits/amendments must be made on the electronic document DICTATION DATE: 10/21/181709 FACILITY ASSISTANT: WAYNE 10/21/181709 RPT#: [id number] DC DATE: STATUS: ADM IN [facility] [address] [place] [address] END OF REPORT
--- NOTE | 2018-10-21 17:22 | NUR ---
IV REMOVED FROM LFA PER PATIENT REQUEST.
--- NOTE | 2018-10-21 17:55 | NUR ---
DISCHARGE EDUCATATION PROVIDED BOTH WRITTEN AND VERBAL. VERBALIZED UNDERSTANDING. DENIES FURTHER QUESTIONS. UNHAPPY ABOUT LEAVING. 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 PATIENT DISCHARGED HOME WITH WITH ALL BELONGINGS.
== END 2018-10-21 18:15 | disposition home health service (06) | DRG 982 ==
LOC: D.ER 16:16 → D.MS 16:55
PROVIDERS: Family Medicine; Internal Medicine Nephrology; Surgery; ADMIT Family Medicine; ATTEND Family Medicine
PROC: 05H633Z Insertion of Infusion Device into Left Subclavian Vein, Percutaneous Approach (ICD-10-PCS; 2018-10-21)
PROC: 0JH60WZ Insertion of Totally Implantable Vascular Access Device into Chest Subcutaneous Tissue and Fascia, Open Approach (ICD-10-PCS; principal; 2018-10-21 13:15)
DX: J96.21 Acute and chronic respiratory failure with hypoxia (principal); C34.90 Malignant neoplasm of unspecified part of unspecified bronchus or lung; I50.32 Chronic diastolic (congestive) heart failure; N17.9 Acute kidney failure, unspecified; I20.9 Angina pectoris, unspecified; J44.9 Chronic obstructive pulmonary disease, unspecified; I10 Essential (primary) hypertension; E11.9 Type 2 diabetes mellitus without complications; F31.9 Bipolar disorder, unspecified; K21.9 Gastro-esophageal reflux disease without esophagitis; I67.1 Cerebral aneurysm, nonruptured

== ENCOUNTER 2018-11-30 13:44 | Emergency (ER) | payer MEDICAID ==
[2018-10-15 08:33] VITALS: Ht 170.2 cm; Wt 81.8 kg
[~2018-11-30] VITALS: Ht 170.2 cm; Wt 81.8 kg
[~2018-11-30 13:44] MED LIST changes: +FLUTICASONE PRO16 GM NASAL; +LEVEMIR FL100 UNIT/1 SC; +ULTRAM50 MG PO
[2018-11-30 14:20] LABS: BASOPHILS 0.3 % (0-2); EOSINOPHILS 0.3 % (0-7); HEMATOCRIT 33.2 % (36.0-48.0); HEMOGLOBIN 10.6 g/dL (12-16); IMMATURE GRANULOCYTES 0.8 % (0-5); LYMPHOCYTES 37.1 % (15-50); MCH 30.1 pg (26.0-34.0); MCHC 31.9 g/dL (31.0-37.0); MCV 94.3 fL (80.0-100.0); MEAN PLATELET VOLUME 10.8 fL (7.4-10.4); NEUTROPHILS 58.5 % (40-80); RBC 3.52 10x6/uL (4.00-5.40); RDW 14.9 % (11.5-14.5); WBC 3.7 10x3/uL (4.8-10.8)
[2018-11-30 14:23] LABS: PLATELET COUNT 205 10x3/uL (130-400)
[2018-11-30 14:32] LABS: ALBUMIN 3.4 g/dL (3.4-5.0); ALKALINE PHOSPHATASE 105 U/L (46-116); ALT (SGPT) 66 U/L (10-68); BILIRUBIN - TOTAL 0.37 mg/dL (0.2-1.3); CALC OSMOLALITY 291 mosm/kg (275-300); CALCIUM 9.1 mg/dL (8.5-10.1); CARBON DIOXIDE 37.8 mmol/L (21.0-32.0); CHLORIDE - SERUM 98 mmol/L (98-107); CREATININE - SERUM 1.4 mg/dL (0.6-1.3); POTASSIUM - SERUM 3.9 mmol/L (3.5-5.1); PROTEIN - SERUM 7.2 g/dL (6.4-8.2); SODIUM 139 mmol/L (136-145); UREA NITROGEN 14 mg/dL (7-18); eGFR NON AFRICAN AMERICAN 41 mL/min (90-120)
[2018-11-30 14:34] LABS: GLUCOSE 324 mg/dL (74-106)
[2018-11-30 14:45] LABS: CREATINE KINASE 12 UL (21-215); PRO BNP 225 pg/mL (0-125); TROPONIN-I < 0.017 ng/mL (0.000-0.060)
[2018-11-30] MEDS ORDERED: MORPHINE PO (16:39)
[2018-11-30 16:47] LABS: APPEARANCE CLEAR (CLEAR); BILIRUBIN NEGATIVE (NEGATIVE); COLOR YELLOW (YELLOW); GLUCOSE 250 mg/dL (NEGATIVE); KETONE NEGATIVE (NEGATIVE); NITRITE NEGATIVE (NEGATIVE); PROTEIN NEGATIVE (NEGATIVE); UROBILINOGEN NORMAL (NORMAL); WHITE CELLS - URINE 0-5 /hpf (0-5)
[2018-11-30 16:48] LABS: BACTERIA FEW /hpf (NONE SEEN); EPITHELIAL CELLS 0-5 /hpf (0-5); RED CELLS - URINE OCC /hpf (0-5)
[2018-11-30 18:26] LABS: CKMB 0.4 U/L (0.0-3.6); CREATINE KINASE 14 UL (21-215)
[2018-11-30 18:32] LABS: TROPONIN-I < 0.017 ng/mL (0.000-0.060)
[2018-11-30 20:36] VITALS: BP 152/88
== END 2018-11-30 20:37 | disposition home or self-care (01) ==
LOC: D.ER 13:44
PROVIDERS: Emergency Medicine
DX: R07.9 Chest pain, unspecified (principal); C80.1 Malignant (primary) neoplasm, unspecified; C78.00 Secondary malignant neoplasm of unspecified lung

== ENCOUNTER → 2018-12-11 11:02 | Outpatient (CLI) | payer MEDICAID ==
[2018-11-30 13:45] VITALS: BMI 28.2
--- NOTE | ~2018-12-11 | HEMODYNAMI ---
PATIENT:ANAHI PAREDES MEDICAL RECORD: [id number] : 58 LOCATION:DShukri ADMISSION DATE: 12/11/18 Generatedon:12/11/201812:51 Patient name: ANAHI PAREDES Patient #: [id number] SSN: : 1960 Date of study: 12/11/2018 Page: Of Hemodynamic Procedure Report Patient Data Patient Demographics Procedure consent was obtained First Name: ANAHI Gender: Female Last Name: REGGIE : 1960 [facility] Initial: A Age: 58 year(s) Patient #: [id number] Race: Unknown Additional ID: [id number] Contact details Address: [place] [address] State: [place] City: [place] Zip code: [address] Past Medical History Allergies Allergen Reaction Date Comments Reported Other allergy 12/11/2018 shell fish codiene beestings and pcn Admission Admission Data Admission Date: 12/11/2018 Admission Time: 11:02 Procedure Procedure Types Cath Procedure Peripheral Cath Diagnostic Procedure Miscellaneous Central Line Placement Procedure Description Procedure Date Procedure Date: 12/11/2018 Procedure Start Time: 12:38 Procedure Staff Name Function Nathaniel Guillermo MD Performing Physician Pedro Luis Tadeo RT Monitor Laina Platt RN Nurse Procedure Data Cath Procedure Fluoroscopy Diagnostic fluoroscopy Total fluoroscopy Time: 0.2 time: 0.2 min min Diagnostic fluoroscopy Total fluoroscopy dose: 96 dose: 96 mGy mGy Hemodynamics Rest Pre Cath Intra NCS Post Cath Procedure Log Time Note 12:12:44 Pedro Luis Tadeo RT (R) (CV) sent for patient. Start room use. 12:12:54 Time tracking: Regular hours (M-F 7:00 - 5:00) 12:12:59 Patient received from Outpatients to IR Alert and oriented. Tansferred to table in Supine position. 12:13:07 Signed procedure consent form obtained from patient. 12:13:11 Correct patient and procedure confirmed by team. 12:13:14 Full Disclosure recording started 12:13:14 - 12:13:17 Pre-procedure instructions explained to patient. 12:13:18 Pre-op teaching completed and patient verbalized understanding. 12:14:18 Patient allergic to Other allergyshell fish stu lagunas and pcn 12:37:46 Alarms reviewed by R. N. 12:37:47 Sharps counted by scrub and verified by R.N. 12:37:48 Physician arrived 12:37:49 --------ALL STOP TIME OUT------ 12:37:50 Final Timeout: patient, procedure, and site verified with staff and physician. All members of the team are in agreement. 12:38:00 Sedation plan: None 12:38:25 Procedure started. 12:48:12 Procedure ended.(Physican Out) 12:48:50 Fluoroscopy time 00.20 minutes. 12:48:54 Fluoroscopy dose: 96 mGy 12:48:54 Flurop Dose total: 96 12:50:59 pt sent home post procedure Signature Audit [place] Stage Time Signature Unsigned Intra-Procedure 12/11/2018 Pedro Luis 12:51:15 PM Carlyle RT (R) (CV) Signatures Monitor : Pedro Luis Signature : Carlyle RT Date : Time : [facility] [address] [place] [address]
[~2018-12-11 11:02] MED LIST changes: +MORPHINE PO
== END | disposition home or self-care (01) ==
LOC: D.SP 11:02
PROVIDERS: ATTEND Internal Medicine Hematology & Oncology
DX: C34.90 Malignant neoplasm of unspecified part of unspecified bronchus or lung (principal); T85.618A Breakdown (mechanical) of other specified internal prosthetic devices, implants and grafts, initial encounter

== ENCOUNTER → 2019-01-11 12:44 | Outpatient (CLI) | payer MEDICAID ==
[2018-11-30 13:45] VITALS: BMI 28.2
== END | disposition home or self-care (01) ==
LOC: D.CT 12:44
PROVIDERS: ATTEND Internal Medicine Hematology & Oncology
DX: C34.12 Malignant neoplasm of upper lobe, left bronchus or lung (principal)